=== PATIENT | male | born 1925 | race Caucasian/White ===

== ENCOUNTER 2016-06-24 11:04 | Inpatient (IN) | payer MEDICARE ==
[~2016-06-24] VITALS: Ht 172.7 cm; Wt 74.2 kg
[~2016-06-24 11:04] MED LIST: ALLO100 PO; ASPI-110 PO; CARV6.25 PO; COQ1100C; FOSA70TA PO; FURO1TAB62 PO; GABA300C5 PO; HYDR-3516 PO; JALYCAP PO; PROT40TA PO; VITA500030 CHEW; ZYVO600T PO
--- NOTE | 2016-06-24 11:22 | PD ---
HPI Chief Complaint: chest pain Time Seen by Provider: 11:22 Travel History International Travel<30 days: No Contact w/Intl Traveler<30days: No Traveled to known affect area: No History of Present Illness HPI 89-year-old male with history of aortic valve replacement, CHF, and non- sustained V-tach, presents to the emergency department for evaluation. Patient states that he is having back pain and is contributing it to a fall that happened yesterday. His states yesterday he did have a fall which she believes was a trip and fall. It was unwitnessed, however, the pt states his cane "got tripped up and he went down." He did not strike his head or lose consciousness. He was "fine" and went about his day. Today he woke up and was complaining of back pain. He states that the pain radiates to his chest. states he was having some shortness of breath earlier this week. He denies any shortness of breath at this time. She states he has been having worsening weakness over the last week. His backpackers manager is Dr. Calloway who he saw earlier this week. His primary care provider is Dr. Dickens. Patient has no other symptoms to report. Note patient is hard of hearing. He is unable to wear his hearing aid in his left ear tear to a fungal infection currently being treated. PFSH Past Medical History Heart Rhythm Problems: Yes Cancer: Yes (ESOPHAGUS CA) Cardiovascular Problems: Yes Diminished Hearing: Yes (bilateral hearing aids) Gastrointestinal Disorders: Yes Gout: Yes Genitourinary: Yes Hypertension: Yes Musculoskeletal: No Neurologic: No Reproductive: No Respiratory: Yes Past Surgical History Abdominal Surgery: Yes (ESPHAGUS-STOMACH SURGERY ) Appendectomy: Yes Cardiac Surgery: Yes (atrial valvue surgery.) Cholecystectomy: Yes Tonsillectomy: Yes Other Surgery: Yes Social History Alcohol Use: Yes (OCC) Tobacco Use: No Substance Use: No Allergies-Medications (Allergen,Severity, Reaction): Coded Allergies: *MDRO Multi-Drug Resistant Organism (Verified Adverse Reaction, Unknown, 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/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) Reported Meds & Prescriptions Reported Meds & Active Scripts Active Reported Zyloprim (Allopurinol) 100 Mg Tab 100 Mg PO DAILY Protonix (Pantoprazole Sodium) 40 Mg Tab 40 Mg PO DAILY Lasix (Furosemide) 20 Mg Tab 20 Mg PO DAILY Gabapentin 300 Mg Cap 300 Mg PO DAILY Fosamax (Alendronate Sodium) 70 Mg Tab 70 Mg PO Q7D Coq10 (Coenzyme Q10 (Ubidecarenone)) 100 Mg Cap Aspirin 81 (Aspirin) 81 Mg Tabdr 81 Mg PO DAILY Mamie (Dutasteride-Tamsulosin) 0.5-0.4 Mg Cap 1 Cap PO DAILY Vitamin D3 (Cholecalciferol) 5,000 Unit Chew 5,000 Units CHEW DAILY Review of Systems Except as stated in HPI: all other systems reviewed are Neg Physical Exam Narrative GENERAL: Well-nourished male patient, lying in bed, in no acute distress. Patient is hard of hearing. SKIN: Focused skin assessment warm/dry. Slightly flushed cheeks. HEAD: Atraumatic. Normocephalic. EYES: Pupils equal and round. No scleral icterus. No injection or drainage. ENT: No nasal bleeding or discharge. Mucous membranes pink and moist. NECK: Trachea midline. No JVD. CARDIOVASCULAR: Irregular rate and irregular rhythm. RESPIRATORY: No accessory muscle use. Faint inspiratory wheeze to auscultation. Diminished bases. Breath sounds equal bilaterally. GASTROINTESTINAL: Abdomen soft, non-tender, nondistended. Hepatic and splenic margins not palpable. MUSCULOSKELETAL: No obvious deformities. No clubbing. No cyanosis. 2+ lower extremity edema, slightly greater on the right than the left. Distal pulses are palpable. Cap refill within normal limits. NEUROLOGICAL: Awake and alert. No obvious cranial nerve deficits. Motor grossly within normal limits. Normal speech. Data Data Last Documented VS Vital Signs Date Time Temp Pulse Resp B/P Pulse Ox O2 Delivery O2 Flow Rate FiO2 06/24/16 11:52 18 100 Nasal Cannula 2 06/24/16 11:47 97.9 90 115/64 Orders Electrocardiogram (06/24/16 11:20) Basic Metabolic Panel (Bmp) (06/24/16 11:20) B-Type Natriuretic Peptide (06/24/16 11:20) Ckmb (Isoenzyme) Profile (06/24/16 11:20) Complete Blood Count With Diff (06/24/16 11:20) Magnesium (Mg) (06/24/16 11:20) Prothrombin Time / Inr (Pt) (06/24/16 11:20) Act Partial Throm Time (Ptt) (06/24/16 11:20) Troponin I (06/24/16 11:20) Chest, Single Ap (06/24/16 11:20) Ecg Monitoring (06/24/16 11:20) Bilateral Bp Monitoring (06/24/16 11:20) Iv Access Insert/Monitor (06/24/16 11:20) Oximetry (06/24/16 11:20) Oxygen Administration (06/24/16 11:20) Aspirin Chew (Aspirin Chew) (06/24/16 11:30) Sodium Chloride 0.9% Flush (Ns Flush) (06/24/16 11:30) Furosemide Inj (Lasix Inj) (06/24/16 12:30) Labs Laboratory Tests Test 06/24/16 06/24/16 11:30 11:31 Sodium Level 142 MEQ/L Potassium Level 4.0 MEQ/L Chloride Level 106 MEQ/L Carbon Dioxide Level 27.3 MEQ/L Anion Gap 9 MEQ/L Blood Urea Nitrogen 47 MG/DL Creatinine 2.05 MG/DL Estimat Glomerular Filtration 31 ML/MIN Rate Random Glucose 117 MG/DL Calcium Level 9.7 MG/DL Magnesium Level 2.2 MG/DL Total Creatine Kinase 79 U/L Troponin I 0.06 NG/ML White Blood Count 8.6 TH/MM3 Red Blood Count 3.78 MIL/MM3 Hemoglobin 11.0 GM/DL Hematocrit 34.6 % Mean Corpuscular Volume 91.7 FL Mean Corpuscular Hemoglobin 29.2 PG Mean Corpuscular Hemoglobin 31.8 % Concent Red Cell Distribution Width 15.8 % Platelet Count 159 TH/MM3 Mean Platelet Volume 10.7 FL Neutrophils (%) (Auto) 72.6 % Lymphocytes (%) (Auto) 11.7 % Monocytes (%) (Auto) 11.2 % Eosinophils (%) (Auto) 3.5 % Basophils (%) (Auto) 1.0 % Neutrophils # (Auto) 6.2 TH/MM3 Lymphocytes # (Auto) 1.0 TH/MM3 Monocytes # (Auto) 1.0 TH/MM3 Eosinophils # (Auto) 0.3 TH/MM3 Basophils # (Auto) 0.1 TH/MM3 CBC Comment DIFF FINAL Differential Comment Prothrombin Time 12.6 SEC Prothromb Time International 1.1 RATIO Ratio Activated Partial 29.4 SEC Thromboplast Time B-Type Natriuretic Peptide 1186 PG/ML MDM Medical Decision Making Medical Screen Exam Complete: Yes Emergency Medical Condition: Yes Medical Record Reviewed: Yes Differential Diagnosis ACS versus dysrhythmia versus exacerbation of CHF versus electrolyte abnormality versus dehydration Narrative Course 89-year-old male presents to the emergency department for evaluation. Patient started having back pain that radiate to his chest this morning but states that this is secondary to a fall. Based on patient's symptoms, rhythm, and EKG findings this is more concerning for cardiac etiology. Pain is not reproducible upon palpation or movement. EKG is reviewed by my attending physician who also discussed it with Dr. Calloway the patient's backpackers manager and then Dr. Mcgowan, cardiology on-call. CBC is without acute concern. BMP is with creatinine 2.05 the BUN of 47. GFR is 31. This is worsening from recent lab work. Troponin is elevated at 0.06. BNP is 1186. I discussed the patient with my attending physician who also reviewed the lab findings and assess the patient. Patient will be given 20 mg IV Lasix. A call has been placed to [facility] for admission. Diagnosis Primary Impression: NSVT (nonsustained ventricular tachycardia) Additional Impressions: CHF (congestive heart failure) Qualified Code: I50.9 - Acute on chronic congestive heart failure, unspecified congestive heart failure type Elevated troponin Renal insufficiency Admitting Information Admitting Physician Requests: Admit Condition: Stable Lary Scherer Jun 24, 2016 11:22
[2016-06-24] MEDS ORDERED: ASPIRIN 81 MG CHEW TAB PO ONE (11:30)
[2016-06-24 11:36] VITALS: BP 115/64; PULSE 85; RESP 20; O2SAT 100
[2016-06-24 11:45] VITALS: BP 129/71; PULSE 117; RESP 20; O2SAT 100
[2016-06-24 11:45] LABS: AUTOMATED NEUTROPHIL # 6.2 TH/MM3 (1.8-7.7); BASOPHIL # 0.1 TH/MM3 (0-0.2); EOSINOPHIL # 0.3 TH/MM3 (0-0.4); EOSINOPHIL % 3.5 % (0.0-4.0); HEMATOCRIT 34.6 % (39.0-51.0); HEMO FLAGS DIFF FINAL; LYMPH % 11.7 % (9.0-44.0); MEAN CELL VOLUME 91.7 FL (80.0-100.0); MEAN CORPUSCULAR HEMOGLOBIN 29.2 PG (27.0-34.0); MEAN CORPUSCULAR HGB CONC 31.8 % (32.0-36.0); MONO % 11.2 % (0.0-8.0); NEUT % 72.6 % (16.0-70.0); PLATELET COUNT 159 TH/MM3 (150-450); RED BLOOD COUNT 3.78 MIL/MM3 (4.50-5.90); RED CELL DISTRIBUTION WIDTH 15.8 % (11.6-17.2); WHITE BLOOD COUNT 8.6 TH/MM3 (4.0-11.0)
[2016-06-24 11:47] VITALS: BP 115/64; PULSE 90; RESP 20; TEMP 97.9; O2SAT 86
[2016-06-24 11:52] LABS: APTT (PATIENT) 29.4 SEC (24.3-30.1); INTERNATIONAL NORMALIZED RATIO 1.1 RATIO; PROTHROMBIN TIME - PATIENT 12.6 SEC (9.8-11.6)
--- NOTE | 2016-06-24 11:53 | RADRPT ---
EXAM DATE/TIME: 06/24/2016 11:29 [facility] COMPARISON: CHEST SINGLE AP, July 16, 2015, 2:05. CHEST SINGLE AP, December 20, 2015, 8:51. WRIST LEFT LIMITE D (AP & LAT), January 26, 2016, 13:19. INDICATIONS : Back and chest pain, fell yesterday. MEDICAL HISTORY : Congestive heart failure. low blood pressure SURGICAL HISTORY : heart valve surgery a year ago. ENCOUNTER: Initial ACUITY: 1 day PAIN SCORE: 9/10 LOCATION: Bilateral chest FINDINGS: The heart is enlarged. The patient is post TAVR this appears stable in position. There is diffuse interstitial prominence. There is diffuse pleural calcification. Changes are similar to previous dated 12/20/15. The visualized bony structures are intact the CONCLUSION: 1. Diffuse interstitial prominence and pleural calcification unchanged from prior. When compared back to previous dated 07/16/15 diffuse interstitial prominence is new. Study would suggest some degree of congestive failure. Gabriel Ray MD on June 24, 2016 at 11:50 Board Certified Radiologist. This report was verified electronically.
[2016-06-24] MEDS ORDERED: DOXY100C PO (12:01)
--- NOTE | 2016-06-24 12:09 | PD ---
Physical Exam Date Seen by Provider: Jun 24, 2016 Time Seen by Provider: 11:36 Narrative I am seeing this patient with Lary Scherer DNP. Since with complaints of left upper back pain with radiation to his left chest. The patient does report that he had a mechanical fall yesterday following to his back. At that time he had no pain. Today he was weak and complaining of the above pain. He denies any nausea, vomiting. He denies any diaphoresis. Patient does have an extensive cardiac history. He reportedly was seen by his emergency medical services coordinator 1 week ago. The patient does have a history of nonsustained V. tach. He was noted here to have low blood pressure. Data Data Last Documented VS Vital Signs Date Time Temp Pulse Resp B/P Pulse Ox O2 Delivery O2 Flow Rate FiO2 06/24/16 11:52 18 100 Nasal Cannula 2 06/24/16 11:47 97.9 90 115/64 Orders Electrocardiogram (06/24/16 11:20) Basic Metabolic Panel (Bmp) (06/24/16 11:20) B-Type Natriuretic Peptide (06/24/16 11:20) Ckmb (Isoenzyme) Profile (06/24/16 11:20) Complete Blood Count With Diff (06/24/16 11:20) Magnesium (Mg) (06/24/16 11:20) Prothrombin Time / Inr (Pt) (06/24/16 11:20) Act Partial Throm Time (Ptt) (06/24/16 11:20) Troponin I (06/24/16 11:20) Chest, Single Ap (06/24/16 11:20) Ecg Monitoring (06/24/16 11:20) Bilateral Bp Monitoring (06/24/16 11:20) Iv Access Insert/Monitor (06/24/16 11:20) Oximetry (06/24/16 11:20) Oxygen Administration (06/24/16 11:20) Aspirin Chew (Aspirin Chew) (06/24/16 11:30) Sodium Chloride 0.9% Flush (Ns Flush) (06/24/16 11:30) Furosemide Inj (Lasix Inj) (06/24/16 12:30) Admit Order (Ed Use Only) (06/24/16 13:04) Consult Cardiology (06/24/16 ) Lorazepam Inj (Ativan Inj) (06/24/16 13:15) Labs Laboratory Tests Test 06/24/16 06/24/16 11:30 11:31 Sodium Level 142 MEQ/L Potassium Level 4.0 MEQ/L Chloride Level 106 MEQ/L Carbon Dioxide Level 27.3 MEQ/L Anion Gap 9 MEQ/L Blood Urea Nitrogen 47 MG/DL Creatinine 2.05 MG/DL Estimat Glomerular Filtration 31 ML/MIN Rate Random Glucose 117 MG/DL Calcium Level 9.7 MG/DL Magnesium Level 2.2 MG/DL Total Creatine Kinase 79 U/L Troponin I 0.06 NG/ML White Blood Count 8.6 TH/MM3 Red Blood Count 3.78 MIL/MM3 Hemoglobin 11.0 GM/DL Hematocrit 34.6 % Mean Corpuscular Volume 91.7 FL Mean Corpuscular Hemoglobin 29.2 PG Mean Corpuscular Hemoglobin 31.8 % Concent Red Cell Distribution Width 15.8 % Platelet Count 159 TH/MM3 Mean Platelet Volume 10.7 FL Neutrophils (%) (Auto) 72.6 % Lymphocytes (%) (Auto) 11.7 % Monocytes (%) (Auto) 11.2 % Eosinophils (%) (Auto) 3.5 % Basophils (%) (Auto) 1.0 % Neutrophils # (Auto) 6.2 TH/MM3 Lymphocytes # (Auto) 1.0 TH/MM3 Monocytes # (Auto) 1.0 TH/MM3 Eosinophils # (Auto) 0.3 TH/MM3 Basophils # (Auto) 0.1 TH/MM3 CBC Comment DIFF FINAL Differential Comment Prothrombin Time 12.6 SEC Prothromb Time International 1.1 RATIO Ratio Activated Partial 29.4 SEC Thromboplast Time B-Type Natriuretic Peptide 1186 PG/ML [facility] Medical Record Reviewed: Yes Supervised Visit with RHEA: Yes Differential Diagnosis ACS versus nonsustained V. tach with prolonged positive's versus sick sinus syndrome Diagnosis Primary Impression: Chest pain Additional Impressions: CHF (congestive heart failure) Qualified Code: I50.9 - Acute on chronic congestive heart failure, unspecified congestive heart failure type NSVT (nonsustained ventricular tachycardia) [id number] kidney injury Elevated troponin Admitting Information Admitting Physician Requests: Admit Lokesh Francis MD Jun 24, 2016 12:09
[2016-06-24 12:21] LABS: BICARBONATE 27.3 MEQ/L (21.0-32.0); MAGNESIUM 2.2 MG/DL (1.5-2.5)
[2016-06-24] MEDS ORDERED: FUROSEMIDE 20 MG/2 ML VIAL IV PUSH ONE ×2 (12:30→16:00)
[2016-06-24] MEDS: SODIUM CHLORIDE 0.9% FLUSH 10 ML FLUSH IVF PRN ×2 (12:44→13:23)
[2016-06-24] MEDS ORDERED: LORazepam 2 MG/ML VIAL IV PUSH ONE (13:15)
[2016-06-24] MEDS ORDERED: FUROSEMIDE 40 MG/4 ML VIAL IV PUSH ONE (13:30)
[2016-06-24] MEDS ORDERED: ONDANSETRON HCL 4 MG/2 ML VIAL IVP PRN (14:45)
[2016-06-24] MEDS ORDERED: METOCLOPRAMIDE HCL 10 MG/2 ML VIAL IV PUSH PRN (14:45)
[2016-06-24] MEDS ORDERED: SODIUM CHLORIDE 0.9% FLUSH 10 ML FLUSH IV FLUSH PRN (14:45)
[2016-06-24] MEDS ORDERED: NALOXONE HCL 0.4 MG/ML AMP IV PRN (14:45)
[2016-06-24] MEDS ORDERED: ALENDRONATE SODIUM 70 MG TAB PO SCH (15:00)
[2016-06-24 15:28] VITALS: BP 138/84; PULSE 81; RESP 14; O2SAT 98
[2016-06-24] MEDS: HEPARIN SODIUM - SQ 10,000 UNITS/ML VIAL SQ SCH (16:00)
--- NOTE | 2016-06-24 16:44 | MB ---
cc: EVANS CALLOWAY M.D., [place] DATE OF CONSULTATION: 06/24/2016 DATE OF : 1925 REASON FOR THE CONSULTATION Pauses on monitoring, frequent nonsustained wide complex tachycardia, chest pain. HISTORY OF PRESENT ILLNESS The patient is an 89-year-old white male, followed in our office by Dr. Evans Calloway, with a history of aortic stenosis status post transcatheter aortic valve replacement last year, asbestosis, coronary artery disease, esophageal cancer who presented to the hospital after a fall. The patient states he felt quite well before the fall but afterwards experienced midback and right greater than left-sided chest pain. The patient states he fell backwards after simply losing his balance. He never lost consciousness. He denies angina, palpitations, pedal edema, paroxysmal nocturnal dyspnea. Rarely and very briefly he experiences mild lightheadedness. On monitoring here in the emergency department he has had a number of pauses, mostly approximately 2 seconds in duration although there are infrequent episodes of pauses up to 4 seconds in duration, some of which have been immediately post wide complex tachycardia. The patient states he was tried on metoprolol in the past but did not tolerate it due to bradycardia and relatively low blood pressures. PAST MEDICAL HISTORY 1. Aortic stenosis status post transcatheter aortic valve replacement at [facility] June, using a 29 mm LAMONT 3 valve. 2. Asbestosis. 3. Coronary artery disease with cardiac catheterization in April of 2015 showing 25% left main and 60% proximal LAD disease. 4. Chronic renal insufficiency stage III. 5. Remote history of esophageal cancer status post resection. 6. Hypertension. 7. History of wide complex tachycardia, possibly ventricular tachycardia, cannot rule out supraventricular tachycardia with aberrancy. MEDICATIONS His cardiac medications at home - 1. Aspirin 81 mg q.d. 2. Furosemide 20 mg q.d. ALLERGIES NO KNOWN DRUG ALLERGIES. FAMILY HISTORY Noncontributory. SOCIAL HISTORY The patient quit smoking 25 years ago. He denies alcohol abuse. REVIEW OF SYSTEMS As in the History of Present Illness otherwise negative or noncontributory. He also denies headache, abdominal pain, melena, dyspepsia, bright red blood per rectum. PHYSICAL EXAMINATION VITAL SIGNS: He had a blood pressure of 115/64 with a pulse of 90, respirations 18. GENERAL: In general he is a well-developed, well-nourished white male in no acute distress. HEENT: Jugular venous pressure is normal. Carotid pulses are 2+ bilaterally and without bruits. CHEST: Examination of the chest reveals clear lung cote. CARDIAC: On cardiac examination he has an irregular irregular rhythm with a grade 1/6 systolic ejection murmur heard at the base. No gallop is audible. ABDOMEN: On abdominal examination he has a soft, nontender abdomen. Bowel sounds are present. There is no definite hepatosplenomegaly. EXTREMITIES: Examination of extremities reveals no clubbing, cyanosis or edema. LABORATORY DATA Laboratory data includes potassium of 4.0, BUN 47, creatinine 2.05, troponin 0.06, INR 1.1, WBC 8.6, hemoglobin 11.0, platelets 159. IMAGING Chest x-ray shows diffuse interstitial prominence. EKG is pending. IMPRESSION Atypical chest pain, frequent salvos of wide complex tachycardia, frequent relatively short pauses in this 89-year-old white male with a history of transcatheter aortic valve replacement, coronary artery disease, chronic renal insufficiency, esophageal cancer, hypertension, asbestosis. Overall I doubt the chest pains are due to myocardial ischemia. The patient experienced the chest pain immediately after his fall. EKG is pending. The troponin level is only slightly abnormal, this in a setting of renal insufficiency. His initial CK is negative for myocardial infarction. His numerous rhythm strips have been reviewed. Indeed he has frequent salvos of wide complex tachycardia, some of which is suggestive of aberrantly conducted atrial tachycardia. It is difficult to exclude that these salvos are nonsustained ventricular tachycardia. In addition, after most of these salvos he has pauses probably as long as 3.5 seconds in duration. The patient has underlying bradycardia. He also notes he was tried on metoprolol in the recent past but it had to be discontinued due to bradycardia and low blood pressures. RECOMMENDATIONS 1. I do overall recommend permanent pacemaker implantation mainly to facilitate use of medical therapy for his nonsustained tachy arrhythmias. At this time he wants to see if one of our [facility] cardiothoracic surgeons will do the pacemaker. 2. Consider mild diuresis; his chest x-ray is suggestive of congestive heart failure. DevynMD DANE Barreto/ANTONY /1:17 PM /4:10 PM [place]
[2016-06-24 16:59] VITALS: BP 97/71; PULSE 74; RESP 12; O2SAT 96
[2016-06-24 17:52] LABS: BACTERIA, URINE RARE /hpf; BLOOD, URINE NEG (NEG); COMMENT (UR) CULT NOT INDICATED; CULTURE IF INDICATED CULT NOT INDICATED; GLUCOSE,URINE NEG (NEG); KETONE, URINE NEG (NEG); NITRITE,URINE NEG (NEG); SQUAMOUS EPITHELIAL CELL URINE <1 /hpf (0-5); URINE COLOR LIGHT-YELLOW (YELLW/STRAW)
--- NOTE | 2016-06-24 18:08 | HHI.PR ---
Objective Objective Results - Vital Signs Date Time Temp Pulse Resp B/P Pulse Ox O2 Delivery O2 Flow Rate FiO2 06/24/16 16:59 74 12 97/71 96 Nasal Cannula 3 06/24/16 15:28 81 14 138/84 98 Nasal Cannula 2 06/24/16 11:52 18 100 Nasal Cannula 2 06/24/16 11:47 97.9 90 20 115/64 86 06/24/16 11:45 117 20 129/71 100 Nasal Cannula 2 06/24/16 11:45 100 Nasal Cannula 2 06/24/16 11:36 85 20 115/64 100 Nasal Cannula 2 06/24/16 11:36 100 Nasal Cannula 2 Result Diagram: 06/24/16 1131 06/24/16 1130 Other Results Laboratory Tests Test 06/24/16 06/24/16 06/24/16 11:30 11:31 17:15 Sodium Level 142 Potassium Level 4.0 Chloride Level 106 Carbon Dioxide Level 27.3 Anion Gap 9 Blood Urea Nitrogen 47 Creatinine 2.05 Estimat Glomerular Filtration 31 Rate Random Glucose 117 Calcium Level 9.7 Magnesium Level 2.2 Total Creatine Kinase 79 Troponin I 0.06 White Blood Count 8.6 Red Blood Count 3.78 Hemoglobin 11.0 Hematocrit 34.6 Mean Corpuscular Volume 91.7 Mean Corpuscular Hemoglobin 29.2 Mean Corpuscular Hemoglobin 31.8 Concent Red Cell Distribution Width 15.8 Platelet Count 159 Mean Platelet Volume 10.7 Neutrophils (%) (Auto) 72.6 Lymphocytes (%) (Auto) 11.7 Monocytes (%) (Auto) 11.2 Eosinophils (%) (Auto) 3.5 Basophils (%) (Auto) 1.0 Neutrophils # (Auto) 6.2 Lymphocytes # (Auto) 1.0 Monocytes # (Auto) 1.0 Eosinophils # (Auto) 0.3 Basophils # (Auto) 0.1 CBC Comment DIFF FINAL Differential Comment Prothrombin Time 12.6 Prothromb Time International 1.1 Ratio Activated Partial 29.4 Thromboplast Time B-Type Natriuretic Peptide 1186 Urine Color LIGHT-YELLOW Urine Turbidity CLEAR Urine pH 5.0 Urine Specific Warren 1.007 Urine Protein NEG Urine Glucose (UA) NEG Urine Ketones NEG Urine Occult Blood NEG Urine Nitrite NEG Urine Bilirubin NEG Urine Urobilinogen LESS THAN 2.0 Urine Leukocyte Esterase SMALL Urine RBC LESS THAN 1 Urine WBC 5 Urine Squamous Epithelial <1 Cells Urine Bacteria RARE Microscopic Urinalysis Comment CULT NOT INDICATED A/P Assessment and Plan PT SEEN AND EXAMINED WITH AT BEDSIDE FACE TO FACE TO TIME SPENT WITH PT CHART WAS REVIEWED INCLUDING LABS MEDS AND RAD DATA PLAN OF CARE WAS DOROTHY MADSEN IN DETAIL ABOVE [facility] CARDIOLOGY INPUT DW PT'S H/P ALEM FOLLOWED BY Tara Sandoval MD Jun 24, 2016 18:07
--- NOTE | 2016-06-24 18:25 | MH ---
cc: RADHAKENYUE DATE OF ADMISSION: 06/24/2016 DATE OF : 1925 CHIEF COMPLAINT Fall, back pain radiating into his chest. HISTORY OF PRESENT ILLNESS This is a pleasant 89-year-old white male who had been in his usual state of health over the past week. The patient has noted to his on several occasions that he has been having some shortness of breath which would wax and wane. The patient saw his homeopathic doctor, Dr. Calloway, earlier this week and was evaluated earlier this week. The patient also was evaluated in an urgent care type situation a couple of days ago for cough and possibly an upper respiratory infection; he was placed on doxycycline and returned home. Yesterday while walking through the living room the patient lost his balance and fell to the floor. This was an unwitnessed event. The patient did not lose consciousness and denies hitting his head. His assisted him in helping him up and the patient denied any other symptoms the rest of the evening. Today the patient woke up complaining of some left-sided back pain. He states the pain radiated around to his chest. He also was having increased symptoms of shortness of breath. The patient's talked him into coming to the hospital to be evaluated. The patient currently is hard of hearing, he wears bilateral hearing aids. He is being treated for a left ear fungal infection. He has one hearing aid currently in his right ear and according to his cannot hear anything unless he has these hearing aids in. The patient currently is resting in the bed, eyes closed. He is very calm and subdued secondary to some anxiety medicines he has received in the ER according to the . She is the chief history science analyst, all of the information is being obtained from her and the record. The patient also has complained of some generalized weakness in his legs since this past Wednesday which is six days ago. According to the , the patient has not had any midsternal chest pain, he has had no headache, he has had no nausea, no vomiting, no diarrhea, no constipation, and no fever. According to the record, the patient was in the emergency room for evaluation and nonsustained V-tach was noted on the monitor. During that period of time, the patient was extremely anxious and received medication which includes IV Lasix, Ativan IV. He also in the ER received a chewable Aspirin, Fosamax. PAST MEDICAL HISTORY 1. Cardiovascular disease. 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 3. Hard of hearing. 4. Bilateral hearing aids. 5. GERD. 6. Gout. 7. Previous urinary problems. 8. Hypertension. 9. Recent diagnosis of possible upper respiratory infection. PAST SURGICAL HISTORY 1. Esophagus stomach surgery. 2. Appendectomy. 3. Atrial aortic valve replacement. 4. Cholecystectomy. 5. Tonsillectomy. ALLERGIES MDRO MULTI-RESISTANT DRUG ORGANISM. REPORTED MEDICATIONS 1. Allopurinol. 2. Protonix. 3. Lasix. 4. Gabapentin. 5. Flomax. 6. CO-Q10. 7. Aspirin. 8. Mamie. 9. Vitamin D3. SOCIAL HISTORY He is currently for 38 years to this . No tobacco. No illicit drugs. A rare occasional social alcohol drink. REVIEW OF SYSTEMS A 12-point review was attempted but received limited information from the patient as stated, information has been given per the . PHYSICAL EXAMINATION VITAL SIGNS: Temperature is 97.9, pulse is labile between 81-117, during palpation of his pulse it was noted to be lower, respiratory rate 14-20, blood pressure 115/64 and 138/84 between his ER checks, O2 sat 98 nasal canula at 2 liters. GENERAL: This is a pale, well-nourished white male, looks younger than his stated age resting in the bed, eyes are closed. He does respond to verbal stimuli but very short answers. HEENT: Atraumatic, normocephalic. PERRLA. Mucous membranes are slightly dry, pale. NECK: Neck is supple. HEART: Heart sounds S1, S2. Systolic murmur heard left sternal border. Possible S3 gallop. Has trace to 1+ edema in his lower extremities bilateral. RESPIRATORY: Lung sounds are equal. He does have some faint expiratory wheezes noted anteriorly. Diminished breath sounds bilateral in his bases mid to lower lobes. GASTROINTESTINAL: Abdomen is soft, nontender, nondistended. Active bowel sounds. MUSCULOSKELETAL: A mild amount of trace edema. No clubbing, no cyanosis. NEUROLOGIC: He is drowsy but he does respond to verbal stimuli. Speech is soft but normal. SKIN: Skin is pale, warm and dry. Thin turgor. DIAGNOSTIC DATA WBC count 8.6, RBC 3.78, hemoglobin 11, hematocrit 34.6, platelet count 159, MCHC 31.8, neutrophil auto percentage 72.6, lymphocyte auto percentage 11.7, monocyte auto percentage 11.2. PT/INR 1.1. Chemistry: Sodium 142, potassium 4, chloride 106, carbon dioxide 27.3, anion gap 9, BUN 47, creatinine 2.05, GFR 31, random glucose 117, calcium 9.7, mag 2.2. Troponin 0.06, BNP 1186. IMAGING STUDIES Chest x-ray: Diffuse interstitial prominence and pleural calcifications, unchanged from prior films. His diffuse interstitial edema is new which would suggest some degree of congestive heart failure. ASSESSMENT 1. Congestive heart failure with complications of dyspnea at rest. 2. Acute kidney injury with chronic kidney disease. 3. Dysrhythmias with irregular rhythm. 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 6. Elevated troponin, rule out MA/cardiac event. 7. Recent upper respiratory infection. 8. Anxiety. 9. Hypertension. 10. Anemia. PLAN Admit inpatient status. In the emergency room the patient had his labs monitored, chest x-ray done, oxygen was started, he had an Aspirin to chew, IV Lasix. Cardiology was consulted for their expert opinion. He was initially n.p.o. when coming into the emergency room, he has now been advanced to a heart healthy diet. He will be on continuous cardiac monitoring. Vital signs will be every 4 hours as warranted. Medications have been reconciled. Our plan and hopes are for active diuresis from the IV Lasix. The patient has been seen per Dr. Marquez for the pauses on the monitor and includes the wide complex tachycardia. The patient does have a significant history of aortic stenosis status post his aortic valve replacement surgery. The plan is to do a pacemaker insertion tomorrow approximately 3 p.m. according to the and the text that she has received from Dr. Marquez. We want to continue his active diuresis. His course of treatment will depend on his response to the treatment. Currently the patient is FULL CODE/FULL AGGRESSIVE CARE. states he has a Living Will and she is going to bring a copy in to the hospital, but I do not think at this time any code status changes will be needed. DICTATED BY: Janet Rascon NP Yue Osman MD JP/BJF /4:51 PM /5:17 PM PT SEEN AND EXAMINED IN DAY OF ADMISSION ABOVE CHART WAS REVIEWED PLAN OF CARE WAS DOROTHY PANCHALD
[2016-06-24 19:29] VITALS: O2SAT 96
[2016-06-24] MEDS ORDERED: LIDOCAINE HCL 2% 100 MG/5 ML SYRINGE IV PUSH ONE (20:00)
[2016-06-24] MEDS: LIDOCAINE/D5W INJ 500 ML IV SCH (20:12)
[2016-06-24] MEDS: SODIUM CHLORIDE 0.9% FLUSH 10 ML FLUSH IV FLUSH SCH (21:00)
[2016-06-24] MEDS: POVIDONE IODINE 5% (ANTISEPSIS KIT) 4 APPLICATIONS TOPICAL SCH (21:00)
[2016-06-24] MEDS: MUPIROCIN 2% OINT 1 APPLIC/GM SYR EACH NARE SCH (21:00)
[2016-06-24] MEDS: CHLORHEXIDINE GLUCONATE 2 % 1 PACK (2 CLOTHS) TOPICAL SCH (21:00)
[2016-06-25] VITALS (10 sets, daily range): BP systolic 113–165; BP diastolic 66–116; PULSE 68–89; RESP 15–26; TEMP 96.5–98.8; O2SAT 95–100
[2016-06-25] MEDS ORDERED: LORazepam 2 MG/ML VIAL ONE (02:29)
[2016-06-25] MEDS ORDERED: LORazepam 2 MG/ML VIAL IV ONE (02:30)
[2016-06-25] MEDS: HEPARIN SODIUM - SQ 10,000 UNITS/ML VIAL SQ SCH (04:00)
[2016-06-25 04:07] LABS: AUTOMATED NEUTROPHIL # 6.6 TH/MM3 (1.8-7.7); BASOPHIL # 0.1 TH/MM3 (0-0.2); EOSINOPHIL # 0.4 TH/MM3 (0-0.4); EOSINOPHIL % 4.5 % (0.0-4.0); HEMATOCRIT 35.3 % (39.0-51.0); HEMO FLAGS DIFF FINAL; LYMPH % 12.1 % (9.0-44.0); LYMPHOCYTE # 1.1 TH/MM3 (1.0-4.8); MEAN CELL VOLUME 90.3 FL (80.0-100.0); MEAN CORPUSCULAR HEMOGLOBIN 30.2 PG (27.0-34.0); MEAN CORPUSCULAR HGB CONC 33.5 % (32.0-36.0); MONO % 9.4 % (0.0-8.0); PLATELET COUNT 156 TH/MM3 (150-450); RED BLOOD COUNT 3.91 MIL/MM3 (4.50-5.90); RED CELL DISTRIBUTION WIDTH 16.2 % (11.6-17.2); WHITE BLOOD COUNT 9.1 TH/MM3 (4.0-11.0)
[2016-06-25 04:53] LABS: ALKALINE PHOSPHATASE 63 U/L (45-117); TOTAL BILIRUBIN ADULT 0.7 MG/DL (0.2-1.0)
[2016-06-25 05:05] LABS: ALT (GPT) 25 U/L (12-78); ANION GAP 9 MEQ/L (5-15); AST (GOT) 25 U/L (15-37); BICARBONATE 27.4 MEQ/L (21.0-32.0); BLOOD UREA NITROGEN 40 MG/DL (7-18); CHLORIDE 105 MEQ/L (98-107); GLOMERULAR FILTRATION RATE 37 ML/MIN (>89); SODIUM (NA) 141 MEQ/L (136-145)
[2016-06-25 05:06] LABS: POTASSIUM 3.8 MEQ/L (3.5-5.1)
--- NOTE | 2016-06-25 08:35 | PD.CARD.PN ---
Subjective Subjective Remarks Sedated. Responds to painful stimuli. Objective Medications Item Value Date Time Aspirin 81 mg 06/25/16899 (Ecotrin Ec) DAILY/PO Furosemide 20 mg 06/25/16899 (Lasix Inj) BID@09,18/IV PUSH Lidocaine HCl/ 500 ml @ 30 mls/hr 06/24/16 2000 Dextrose [id number]/IV 06/24/162011 Vital Signs / I&O Vital Signs Date Time Temp Pulse Resp B/P Pulse Ox O2 Delivery O2 Flow Rate FiO2 06/25/16 07:00 96 Nasal Cannula 2.00 06/25/16 04:00 98.8 82 26 159/93 95 06/25/16 00:00 98.7 75 20 147/83 96 06/24/16 19:29 96 Nasal Cannula 3.00 06/24/16 16:59 74 12 97/71 96 Nasal Cannula 3 06/24/16 15:28 81 14 138/84 98 Nasal Cannula 2 06/24/16 11:52 18 100 Nasal Cannula 2 06/24/16 11:47 97.9 90 20 115/64 86 06/24/16 11:45 117 20 129/71 100 Nasal Cannula 2 06/24/16 11:45 100 Nasal Cannula 2 06/24/16 11:36 85 20 115/64 100 Nasal Cannula 2 06/24/16 11:36 100 Nasal Cannula 2 I/O 06/24/16 06/24/16 06/24/16 06/25/16 06/25/16 06/25/16 07:00 15:00 23:00 07:00 15:00 23:00 Intake Total 281 ml Output Total 650 ml Balance -650 ml 281 ml Intake IV Total 281 ml Output Urine Total 650 ml # Voids 2 Physical Exam GENERAL: Well developed, well nourished. No acute distress. HEENT: Jugular venous pressure 9 cm water. CHEST: Coarse upper airway sounds. Few left basilar crackles. CARDIAC: Regular rate and rhythm without S3, S4. I/ ISAI RUSB. ABDOMEN: Soft, nontender, no hepatosplenomegaly. Bowel sounds present. EXTREMITIES: No clubbing, cyanosis, or edema. Laboratory Laboratory Tests Test 06/24/16 06/24/16 06/24/16 06/24/16 11:30 11:31 17:15 20:30 Sodium Level 142 MEQ/L Potassium Level 4.0 MEQ/L Chloride Level 106 MEQ/L Carbon Dioxide Level 27.3 MEQ/L Anion Gap 9 MEQ/L Blood Urea Nitrogen 47 MG/DL Creatinine 2.05 MG/DL Estimat Glomerular Filtration 31 ML/MIN Rate Random Glucose 117 MG/DL Calcium Level 9.7 MG/DL Magnesium Level 2.2 MG/DL Total Creatine Kinase 79 U/L Troponin I 0.06 NG/ML White Blood Count 8.6 TH/MM3 Red Blood Count 3.78 MIL/MM3 Hemoglobin 11.0 GM/DL Hematocrit 34.6 % Mean Corpuscular Volume 91.7 FL Mean Corpuscular Hemoglobin 29.2 PG Mean Corpuscular Hemoglobin 31.8 % Concent Red Cell Distribution Width 15.8 % Platelet Count 159 TH/MM3 Mean Platelet Volume 10.7 FL Neutrophils (%) (Auto) 72.6 % Lymphocytes (%) (Auto) 11.7 % Monocytes (%) (Auto) 11.2 % Eosinophils (%) (Auto) 3.5 % Basophils (%) (Auto) 1.0 % Neutrophils # (Auto) 6.2 TH/MM3 Lymphocytes # (Auto) 1.0 TH/MM3 Monocytes # (Auto) 1.0 TH/MM3 Eosinophils # (Auto) 0.3 TH/MM3 Basophils # (Auto) 0.1 TH/MM3 CBC Comment DIFF FINAL Differential Comment Prothrombin Time 12.6 SEC Prothromb Time International 1.1 RATIO Ratio Activated Partial 29.4 SEC Thromboplast Time B-Type Natriuretic Peptide 1186 PG/ML Urine Color LIGHT-YELLOW Urine Turbidity CLEAR Urine pH 5.0 Urine Specific [place] 1.007 Urine Protein NEG mg/dL Urine Glucose (UA) NEG mg/dL Urine Ketones NEG mg/dL Urine Occult Blood NEG Urine Nitrite NEG Urine Bilirubin NEG Urine Urobilinogen LESS THAN 2.0 MG/DL Urine Leukocyte Esterase SMALL Urine RBC LESS THAN 1 /hpf Urine WBC 5 /hpf Urine Squamous Epithelial <1 /hpf Cells Urine Bacteria RARE /hpf Microscopic Urinalysis Comment CULT NOT INDICATED Nasal Screen MRSA (PCR) POSITIVE Test 06/25/16 03:54 White Blood Count 9.1 TH/MM3 Red Blood Count 3.91 MIL/MM3 Hemoglobin 11.8 GM/DL Hematocrit 35.3 % Mean Corpuscular Volume 90.3 FL Mean Corpuscular Hemoglobin 30.2 PG Mean Corpuscular Hemoglobin 33.5 % Concent Red Cell Distribution Width 16.2 % Platelet Count 156 TH/MM3 Mean Platelet Volume 10.8 FL Neutrophils (%) (Auto) 73.0 % Lymphocytes (%) (Auto) 12.1 % Monocytes (%) (Auto) 9.4 % Eosinophils (%) (Auto) 4.5 % Basophils (%) (Auto) 1.0 % Neutrophils # (Auto) 6.6 TH/MM3 Lymphocytes # (Auto) 1.1 TH/MM3 Monocytes # (Auto) 0.9 TH/MM3 Eosinophils # (Auto) 0.4 TH/MM3 Basophils # (Auto) 0.1 TH/MM3 CBC Comment DIFF FINAL Differential Comment Sodium Level 141 MEQ/L Potassium Level 3.8 MEQ/L Chloride Level 105 MEQ/L Carbon Dioxide Level 27.4 MEQ/L Anion Gap 9 MEQ/L Blood Urea Nitrogen 40 MG/DL Creatinine 1.75 MG/DL Estimat Glomerular Filtration 37 ML/MIN Rate Random Glucose 116 MG/DL Calcium Level 9.8 MG/DL Total Bilirubin 0.7 MG/DL Aspartate Amino Transf 25 U/L (AST/SGOT) Alanine Aminotransferase 25 U/L (ALT/SGPT) Alkaline Phosphatase 63 U/L Total Protein 6.9 GM/DL Albumin 3.1 GM/DL Imaging Last 48 hours Impressions Chest X-Ray 06/24/16 1120 Signed Impressions: Service Date/Time: Friday, June 24, 2016 11:29 - CONCLUSION: 1. Diffuse interstitial prominence and pleural calcification unchanged from prior. When compared back to previous dated 07/16/15 diffuse interstitial prominence is new. Study would suggest some degree of congestive failure. Gabriel Ray MD Assessment and Plan Problem List: (1) Wide QRS ventricular tachycardia Assessment and Plan: Rhythm more stable overnight on IV lidocaine, less wide complex ectopy and salvoes. No further pauses. Rec Amiodarone once a pacemaker has been implanted. Continue lidocaine for now. (2) Congestive heart failure (CHF) Assessment and Plan: Somewhat worsening respiratory status. Yesterday's CXR suggestive of CHF. Reportedly his LV function at time of TAVR last year was normal. Rec increase Lasix, repeat CXR, check echo. (3) CAD (coronary artery disease) Assessment and Plan: Stable CAD status. No definite recent angina. Continue daily aspirin. Patient has refused lipid lowering therapy in the past. (4) Hypertension Assessment and Plan: Widely fluctuating BP's. Rec continue to monitor. Code Status full code Discussed Condition With nurse Problem Qualifiers (1) Congestive heart failure (CHF): (2) CAD (coronary artery disease): Qualified Code: I25.10 - Coronary artery disease involving [place] cross coronary artery of [place] cross heart without angina pectoris (3) Hypertension: Qualified Code: I10 - Essential hypertension Devyn Marquez MD Jun 25, 2016 08:35
[2016-06-25] MEDS ORDERED: PROPOFOL 1000 MG/100 ML INJ 100 ML ONE (08:37)
[2016-06-25] MEDS ORDERED: ROCURONIUM INJ 50 MG/5 ML VIAL ONE (08:37)
[2016-06-25] MEDS: PANTOPRAZOLE SOD 40 MG DELAYED RELEASE TAB PO SCH (09:00)
[2016-06-25] MEDS: ASPIRIN EC 81 MG TABEC PO SCH (09:00)
[2016-06-25] MEDS: TAMSULOSIN HCL 0.4 MG CAP PO SCH (09:00)
[2016-06-25] MEDS ORDERED: PROPOFOL 1000 MG/100 ML INJ 100 ML IV SCH (09:00)
[2016-06-25] MEDS ORDERED: DUTASTERIDE TAMSULOSIN PO SCH (09:00)
[2016-06-25] MEDS ORDERED: FUROSEMIDE 20 MG/2 ML VIAL IV PUSH SCH (09:00)
[2016-06-25] MEDS: FINASTERIDE 5 MG TAB PO SCH (09:00)
--- NOTE | 2016-06-25 09:22 | PD.CONS ---
[facility] Service Critical Care Medicine Consult Requested By Hospitalists Reason for Consult Respiratory Failure. Primary Care Physician Glen Dickens M.D. History of Present Illness Syncope and collapse from ventricular arrhythmia. Received ativan last night X 2. He is quite somnolent now and does not protect his airway. He will require intubation and mechanical ventilation. Review of Systems ROS Unobtainable. 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) Past Medical History Past Medical History Heart Rhythm Problems: Yes Cancer: Yes (ESOPHAGUS CA) Cardiovascular Problems: Yes Diminished Hearing: Yes (bilateral hearing aids) Gastrointestinal Disorders: Yes Gout: Yes Genitourinary: Yes Hypertension: Yes Musculoskeletal: No Neurologic: No Reproductive: No Respiratory: Yes Past Surgical History Abdominal Surgery: Yes (ESPHAGUS-STOMACH SURGERY ) Appendectomy: Yes Cardiac Surgery: Yes (atrial valvue surgery.) Cholecystectomy: Yes Tonsillectomy: Yes Other Surgery: Yes Social History Alcohol Use: Yes (OCC) Tobacco Use: No Substance Use: No Allergies-Medications Allergies-Medications (Allergen,Severity, Reaction): Coded Allergies: *MDRO Multi-Drug Resistant Organism (Verified Adverse Reaction, Unknown, 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/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) Reported Meds & Prescriptions Reported Meds & Active Scripts Active Reported Zyloprim (Allopurinol) 100 Mg Tab 100 Mg PO DAILY Protonix (Pantoprazole Sodium) 40 Mg Tab 40 Mg PO DAILY Lasix (Furosemide) 20 Mg Tab 20 Mg PO DAILY Gabapentin 300 Mg Cap 300 Mg PO DAILY Fosamax (Alendronate Sodium) 70 Mg Tab 70 Mg PO Q7D Coq10 (Coenzyme Q10 (Ubidecarenone)) 100 Mg Cap Aspirin 81 (Aspirin) 81 Mg Tabdr 81 Mg PO DAILY Mamie (Dutasteride-Tamsulosin) 0.5-0.4 Mg Cap 1 Cap PO DAILY Vitamin D3 (Cholecalciferol) 5,000 Unit Chew 5,000 Units CHEW DAILY Physical Exam Vital Signs Vital Signs Date Time Temp Pulse Resp B/P Pulse Ox O2 Delivery O2 Flow Rate FiO2 06/25/16 07:00 96 Nasal Cannula 2.00 06/25/16 04:00 98.8 82 26 159/93 95 06/25/16 00:00 98.7 75 20 147/83 96 06/24/16 19:29 96 Nasal Cannula 3.00 06/24/16 16:59 74 12 97/71 96 Nasal Cannula 3 06/24/16 15:28 81 14 138/84 98 Nasal Cannula 2 06/24/16 11:52 18 100 Nasal Cannula 2 06/24/16 11:47 97.9 90 20 115/64 86 06/24/16 11:45 117 20 129/71 100 Nasal Cannula 2 06/24/16 11:45 100 Nasal Cannula 2 06/24/16 11:36 85 20 115/64 100 Nasal Cannula 2 06/24/16 11:36 100 Nasal Cannula 2 Physical Exam P 82, BP 172/112, R 10 obstructed sounds., sats 93% on 2L O2. Head: Atraumatic. Dentures in place. Neck: Loud snoring and obstruction. Stiff. Lungs: Diffuse mobile secretions. Poor air movement. Heart: RRR, no JVD. Abdomen: Soft, benign. No guarding. Extremities: Well perfused. Neuro: Opens eyes, does not focus. Moves 4 limbs. Laboratory Laboratory Tests Test 06/24/16 06/24/16 06/24/16 06/24/16 11:30 11:31 17:15 20:30 Sodium Level 142 Potassium Level 4.0 Chloride Level 106 Carbon Dioxide Level 27.3 Anion Gap 9 Blood Urea Nitrogen 47 Creatinine 2.05 Estimat Glomerular Filtration 31 Rate Random Glucose 117 Calcium Level 9.7 Magnesium Level 2.2 Total Creatine Kinase 79 Troponin I 0.06 White Blood Count 8.6 Red Blood Count 3.78 Hemoglobin 11.0 Hematocrit 34.6 Mean Corpuscular Volume 91.7 Mean Corpuscular Hemoglobin 29.2 Mean Corpuscular Hemoglobin 31.8 Concent Red Cell Distribution Width 15.8 Platelet Count 159 Mean Platelet Volume 10.7 Neutrophils (%) (Auto) 72.6 Lymphocytes (%) (Auto) 11.7 Monocytes (%) (Auto) 11.2 Eosinophils (%) (Auto) 3.5 Basophils (%) (Auto) 1.0 Neutrophils # (Auto) 6.2 Lymphocytes # (Auto) 1.0 Monocytes # (Auto) 1.0 Eosinophils # (Auto) 0.3 Basophils # (Auto) 0.1 CBC Comment DIFF FINAL Differential Comment Prothrombin Time 12.6 Prothromb Time International 1.1 Ratio Activated Partial 29.4 Thromboplast Time B-Type Natriuretic Peptide 1186 Urine Color LIGHT-YELLOW Urine Turbidity CLEAR Urine pH 5.0 Urine Specific [place] 1.007 Urine Protein NEG Urine Glucose (UA) NEG Urine Ketones NEG Urine Occult Blood NEG Urine Nitrite NEG Urine Bilirubin NEG Urine Urobilinogen LESS THAN 2.0 Urine Leukocyte Esterase SMALL Urine RBC LESS THAN 1 Urine WBC 5 Urine Squamous Epithelial <1 Cells Urine Bacteria RARE Microscopic Urinalysis Comment CULT NOT INDICATED Nasal Screen MRSA (PCR) POSITIVE Test 06/25/16 03:54 White Blood Count 9.1 Red Blood Count 3.91 Hemoglobin 11.8 Hematocrit 35.3 Mean Corpuscular Volume 90.3 Mean Corpuscular Hemoglobin 30.2 Mean Corpuscular Hemoglobin 33.5 Concent Red Cell Distribution Width 16.2 Platelet Count 156 Mean Platelet Volume 10.8 Neutrophils (%) (Auto) 73.0 Lymphocytes (%) (Auto) 12.1 Monocytes (%) (Auto) 9.4 Eosinophils (%) (Auto) 4.5 Basophils (%) (Auto) 1.0 Neutrophils # (Auto) 6.6 Lymphocytes # (Auto) 1.1 Monocytes # (Auto) 0.9 Eosinophils # (Auto) 0.4 Basophils # (Auto) 0.1 CBC Comment DIFF FINAL Differential Comment Sodium Level 141 Potassium Level 3.8 Chloride Level 105 Carbon Dioxide Level 27.4 Anion Gap 9 Blood Urea Nitrogen 40 Creatinine 1.75 Estimat Glomerular Filtration 37 Rate Random Glucose 116 Calcium Level 9.8 Total Bilirubin 0.7 Aspartate Amino Transf 25 (AST/SGOT) Alanine Aminotransferase 25 (ALT/SGPT) Alkaline Phosphatase 63 Total Protein 6.9 Albumin 3.1 Result Diagram: 06/25/16 0354 06/25/16 0354 Assessment and Plan Assessment and Plan Assessment: 1. Respiratory Failure. 2. Encephalopathy, acute. 3. Ventricular Arrhythmia. 4. Syncope and collapse. Plan: 1. Intubation and mechanical ventilation, PRVC mode. 2. Proceed with electrical cardiac intervention today. 3. Light sedation with propofol. 4. Wean to extubate after procedure. 5. SCDs. 6. Protonix. Overall impression: I suspect this is acute encephalopathy from benzodiazipine sedation at an elderly age. He is largely obtunded, unable to protect his airway. I'd prefer not to reverse his sedation abruptly in view of the ventricular arrhythmias, but rather wait until after the procedure so we are not wrestling him during the procedure. Critical care 38 mins aside from procedure. Lokesh Farrell MD Jun 25, 2016 09:22
--- NOTE | 2016-06-25 09:24 | PD.PROCEDR ---
Procedure Note Procedure DX: Respiratory Failure (J96.00) OP: Orotracheal Intubation (89980) Procedure: Bag mask ventilation. Propofol 10 ml iv. Intubated with 8.0 tube. Position confirmed with CO2 detection, breath sounds, sats 100%. Lokesh Farrell MD Jun 25, 2016 09:24
--- NOTE | 2016-06-25 09:37 | RADRPT ---
EXAM DATE/TIME: 06/25/2016 09:13 [place] COMPARISON: CHEST SINGLE AP, June 24, 2016, 11:29. INDICATIONS : Evaluate ET tube position MEDICAL HISTORY : Congestive heart failure. low blood pressure SURGICAL HISTORY : heart valve surgery a year ago. ENCOUNTER: Subsequent ACUITY: 1 day PAIN SCORE: Non-responsive. LOCATION: chest FINDINGS: The patient is rotated towards the right. Interval placement of endotracheal tube; the tip is 4 cm a kenyatta the shwetha. Patchy infiltrates in both lungs and pleural calcifications stable from prior. The heart is upper limits normal size. Moderate tortuosity descending thoracic aorta. CONCLUSION: ET tube in good position. Barak Goldberg MD on June 25, 2016 at 9:35 Board Certified Radiologist. This report was verified electronically.
--- NOTE | 2016-06-25 09:41 | HHI.PR ---
Subjective Subjective Remarks agitated overnight, went into resp. failure, now intubated on Diprivan gtt Lidocaine gtt less ectopy unable to obtain ROS Review of Systems Constitutional Constitutional Remarks 12 point review of systems unable to obtain Vitals/Results Intake & Output 06/24/16 06/24/16 06/25/16 15:00 23:00 07:00 Intake Total 281 ml Output Total 650 ml Balance -650 ml 281 ml Intake IV Total 281 ml Output Urine Total 650 ml # Voids 2 Vital Signs Vital Signs Date Time Temp Pulse Resp B/P Pulse Ox O2 Delivery O2 Flow Rate FiO2 06/25/16 09:10 99 50 06/25/16 07:00 96 Nasal Cannula 2.00 06/25/16 04:00 98.8 82 26 159/93 95 06/25/16 00:00 98.7 75 20 147/83 96 06/24/16 19:29 96 Nasal Cannula 3.00 06/24/16 16:59 74 12 97/71 96 Nasal Cannula 3 06/24/16 15:28 81 14 138/84 98 Nasal Cannula 2 06/24/16 11:52 18 100 Nasal Cannula 2 06/24/16 11:47 97.9 90 20 115/64 86 06/24/16 11:45 117 20 129/71 100 Nasal Cannula 2 06/24/16 11:45 100 Nasal Cannula 2 06/24/16 11:36 85 20 115/64 100 Nasal Cannula 2 06/24/16 11:36 100 Nasal Cannula 2 CBC/BMP: 06/25/16 0354 06/25/16 0354 Lab Results Laboratory Tests Test 06/24/16 06/24/16 06/24/16 06/24/16 11:30 11:31 17:15 20:30 Sodium Level 142 MEQ/L Potassium Level 4.0 MEQ/L Chloride Level 106 MEQ/L Carbon Dioxide Level 27.3 MEQ/L Anion Gap 9 MEQ/L Blood Urea Nitrogen 47 MG/DL Creatinine 2.05 MG/DL Estimat Glomerular Filtration 31 ML/MIN Rate Random Glucose 117 MG/DL Calcium Level 9.7 MG/DL Magnesium Level 2.2 MG/DL Total Creatine Kinase 79 U/L Troponin I 0.06 NG/ML White Blood Count 8.6 TH/MM3 Red Blood Count 3.78 MIL/MM3 Hemoglobin 11.0 GM/DL Hematocrit 34.6 % Mean Corpuscular Volume 91.7 FL Mean Corpuscular Hemoglobin 29.2 PG Mean Corpuscular Hemoglobin 31.8 % Concent Red Cell Distribution Width 15.8 % Platelet Count 159 TH/MM3 Mean Platelet Volume 10.7 FL Neutrophils (%) (Auto) 72.6 % Lymphocytes (%) (Auto) 11.7 % Monocytes (%) (Auto) 11.2 % Eosinophils (%) (Auto) 3.5 % Basophils (%) (Auto) 1.0 % Neutrophils # (Auto) 6.2 TH/MM3 Lymphocytes # (Auto) 1.0 TH/MM3 Monocytes # (Auto) 1.0 TH/MM3 Eosinophils # (Auto) 0.3 TH/MM3 Basophils # (Auto) 0.1 TH/MM3 CBC Comment DIFF FINAL Differential Comment Prothrombin Time 12.6 SEC Prothromb Time International 1.1 RATIO Ratio Activated Partial 29.4 SEC Thromboplast Time B-Type Natriuretic Peptide 1186 PG/ML Urine Color LIGHT-YELLOW Urine Turbidity CLEAR Urine pH 5.0 Urine Specific [place] 1.007 Urine Protein NEG mg/dL Urine Glucose (UA) NEG mg/dL Urine Ketones NEG mg/dL Urine Occult Blood NEG Urine Nitrite NEG Urine Bilirubin NEG Urine Urobilinogen LESS THAN 2.0 MG/DL Urine Leukocyte Esterase SMALL Urine RBC LESS THAN 1 /hpf Urine WBC 5 /hpf Urine Squamous Epithelial <1 /hpf Cells Urine Bacteria RARE /hpf Microscopic Urinalysis Comment CULT NOT INDICATED Nasal Screen MRSA (PCR) POSITIVE Test 06/25/16 03:54 White Blood Count 9.1 TH/MM3 Red Blood Count 3.91 MIL/MM3 Hemoglobin 11.8 GM/DL Hematocrit 35.3 % Mean Corpuscular Volume 90.3 FL Mean Corpuscular Hemoglobin 30.2 PG Mean Corpuscular Hemoglobin 33.5 % Concent Red Cell Distribution Width 16.2 % Platelet Count 156 TH/MM3 Mean Platelet Volume 10.8 FL Neutrophils (%) (Auto) 73.0 % Lymphocytes (%) (Auto) 12.1 % Monocytes (%) (Auto) 9.4 % Eosinophils (%) (Auto) 4.5 % Basophils (%) (Auto) 1.0 % Neutrophils # (Auto) 6.6 TH/MM3 Lymphocytes # (Auto) 1.1 TH/MM3 Monocytes # (Auto) 0.9 TH/MM3 Eosinophils # (Auto) 0.4 TH/MM3 Basophils # (Auto) 0.1 TH/MM3 CBC Comment DIFF FINAL Differential Comment Sodium Level 141 MEQ/L Potassium Level 3.8 MEQ/L Chloride Level 105 MEQ/L Carbon Dioxide Level 27.4 MEQ/L Anion Gap 9 MEQ/L Blood Urea Nitrogen 40 MG/DL Creatinine 1.75 MG/DL Estimat Glomerular Filtration 37 ML/MIN Rate Random Glucose 116 MG/DL Calcium Level 9.8 MG/DL Total Bilirubin 0.7 MG/DL Aspartate Amino Transf 25 U/L (AST/SGOT) Alanine Aminotransferase 25 U/L (ALT/SGPT) Alkaline Phosphatase 63 U/L Total Protein 6.9 GM/DL Albumin 3.1 GM/DL Physical Exam General General Appearance: Well Developed, No Acute Distress, Malnourished Eyes Eye Exam: Pupils Equal, Pupils Reactive Ears & Nose Ears & Nose Exam: Nasal Mucosa [place] Throat Throat Exam: Oral Mucosa [place] & Moist Neck Neck Exam: Neck Supple, Trachea Midline Pulmonary Resp Exam: Crackles, Rhonchi Resp Remarks Mechanically intubated Gastrointestinal/Abdomen GI Exam: Soft, Non-Tender, Bowel Sounds Present, Non-Distended Musculoskeletal MS Exam: Joints Intact Integumentary Skin Exam: Warm, Dry Extremeties Extremities Exam: No Edema, Pedal Pulses Palpable Neurologic Neuro Exam: Sedated VTE Prophylaxis VTE Prophylaxis Device: SCDs VTE Prophylaxis Meds: Heparin PUD Prophylasis PUD Prophylaxis: Protonix Assessment/Plan Problem List: (1) Respiratory failure (2) Congestive heart failure (CHF) (3) NSVT (nonsustained ventricular tachycardia) (4) Hypertension (5) Valvular heart disease (6) Hx recent TAVR (7) CAD (coronary artery disease) (8) Pgewt-ed-ifityxm kidney injury Assessment/Plan 89 year old elderly male admitted with NSVT and CHF. Overnight, patient developed agitation, went into respiratory failure. Intubated on 06/25/2016 Respiratory failure sec. fluid overload. Critical care now managing, their input is appreciated Continue with Lasix 40 mg IV twice a day Acute on chronic congestive heart failure, hx TAVR, cardiomyopathy. 2-D echo pending Cardiology input appreciated, Dr. Marquez following Continue with Lasix IV Monitor intake and output NSVT -Continue lidocaine drip, dysrhythmia episodes improving. Per cardiology notes, the plan is for pacemaker and change to amiodarone by mouth. At this time, procedure is on hold until patient more stable. Possible underlying pneumonia Continue with antibiotics A sputum culture pending Follow cultures Acute on chronic renal injury Monitor renal function Avoid nephrotoxic -Creatinine slightly improved Hypertension, blood pressure labile, at times 90s up to 150s. Monitor closely for now CAD -continue with medical management Will start heparin for DVT prophylaxis Protonix for GI prophylaxis Patient's condition guarded Labs reviewed D/W RN D/W Dr. Reed This patient was seen by myself and Dr. Reed, this note is written on her behalf. Problem Qualifiers (1) Respiratory failure: (2) Congestive heart failure (CHF): Qualified Code: I50.9 - Acute on chronic congestive heart failure, unspecified congestive heart failure type (3) Hypertension: Qualified Code: I10 - Essential hypertension (4) CAD (coronary artery disease): Qualified Code: I25.10 - Coronary artery disease involving [place] coronary artery of [place] heart without angina pectoris Nori Dave [facility] Jun 25, 2016 09:41
[2016-06-25 09:46] LABS: BLOOD GAS BASE EXCESS 0.7 mmol/L (-2-2); BLOOD GAS CARBOXYHEMOGLOBIN 1.3 % (0-4); BLOOD GAS HCO3 25 mmol/L (22-26); BLOOD GAS METHEMOGLOBIN 1.1 % (0-2); BLOOD GAS O2 HGB SATURATION 96 % (90-100); BLOOD GAS OXYGEN CONTENT 14.7 Vol % (12.0-20.0); BLOOD GAS PCO2 42 mmHg (38-42); BLOOD GAS PO2 114 mmHg (61-120); BLOOD GAS TOTAL HGB 10.8 G/DL (12.0-16.0); CRITICAL VALUE NO; DRAW SITE RT RADIAL; FIO2 50 %; NUMBER OF ARTERIAL PUNCTURES 1; OXYGEN DEVICE VENTILATOR; STAT NO; TEMP CORR TO 98.6; ULNAR PULSE PRESENT; VENT SETTINGS AC/14/450/PEEP5
[2016-06-25] MEDS: SODIUM CHLOR 0.9% 1000 ML INJ 1,000 ML IV SCH (10:27)
[2016-06-25] MEDS: SODIUM CHLORIDE 0.9% FLUSH 10 ML FLUSH IV FLUSH SCH ×2 (10:28→20:32)
[2016-06-25] MEDS: CHOLECALCIFEROL (VIT D3) 5000 UNIT CAP PO SCH (10:29)
[2016-06-25] MEDS: FUROSEMIDE 40 MG/4 ML VIAL IV PUSH SCH ×2 (10:29→18:00)
[2016-06-25] MEDS: GABAPENTIN 300 MG CAP PO SCH (10:29)
[2016-06-25] MEDS: ALLOPURINOL 100 MG TAB PO SCH (10:30)
[2016-06-25] MEDS: LIDOCAINE/D5W INJ 500 ML IV SCH (12:52)
--- NOTE | 2016-06-25 13:34 | EKG ---
Date Performed: 06/24/2016 Time Performed: 11:30:37 PTAGE: 89 years EKG: ATRIAL FIBRILLATION WITH RAPID VENTRICULAR RESPONSE WITH ABERRANT CONDUCTION OR VENTRICULAR PREMATURE COMPLEXES INTRAVENTRICULAR CONDUCTION DELAY LATERAL MYOCARDIAL INFARCTION ABNORMAL ECG PREVIOUS TRACING : 06/24/2016 11.19 Compared to prior tracing no significant change DOCTOR: Marco A Méndez Interpretating Date/Time 06/25/2016 13:33:32
--- NOTE | 2016-06-25 13:34 | EKG ---
Date Performed: 06/24/2016 Time Performed: 11:19:05 PTAGE: 89 years EKG: ATRIAL FIBRILLATION WITH ABERRANT CONDUCTION OR VENTRICULAR PREMATURE COMPLEXES INTRAVENTRI CULAR CONDUCTION DELAY PREVIOUS TRACING : 12/15/2015 18.25 Compared to prior tracing no significant change DOCTOR: Marco A Méndez Interpretating Date/Time 06/25/2016 13:33:51
[2016-06-25] MEDS ORDERED: VANCOMYCIN INJ 1,000 MG in SODIUM CHLOR 0.9% 250 ML INJ 250 ML IV SCH (15:00)
[2016-06-25] MEDS ORDERED: VANCOMYCIN 500 MG VIAL ONE (15:25)
[2016-06-25] MEDS ORDERED: LIDOCAINE HCL 2% 50 ML VIAL ONE (15:25)
[2016-06-25] MEDS ORDERED: AMIODARONE INJ 900 MG in D5W 500 ML (EXCEL BAG) 482 ML IV SCH (16:45)
[2016-06-25] MEDS ORDERED: traMADol HCL 50 MG TAB PO PRN (16:45)
[2016-06-25] MEDS ORDERED: AMIODARONE INJ 150 MG in DEXTROSE 5% IN WATER 100ML INJ 97 ML IV ONE ×2 (16:45)
--- NOTE | 2016-06-25 16:50 | EC ---
Study Study Date:06/25/2016 STUDY CONCLUSIONS SUMMARY - Left ventricle: The cavity size was dilated. Wall thickness was normal. Systolic function was severely reduced by visual assessment. The estimated ejection fraction was in the range of 15% to 20%. Diffuse hypokinesis. - Mitral valve: Moderate regurgitation. - Left atrium: The atrium was mildly dilated. - Right atrium: The atrium was mildly dilated. - Tricuspid valve: Mild-moderate regurgitation. If LV function is below 40, please consider prescribing an ACEI or ARB or document rationale for non-use. PROCEDURE DATA STUDY STATUS: Elective. Procedure: Transthoracic echocardiography. Image quality was good. Scanning was performed from the parasternal, apical, and subcostal acoustic windows. Study completion: The patient tolerated the procedure well. Transthoracic echocardiography. M-mode, complete 2D, complete spectral Doppler, and color Doppler. Patient status: Inpatient. CARDIAC ANATOMY LEFT VENTRICLE: The cavity size was dilated. Wall thickness was normal. Systolic function was severely reduced by visual assessment. The estimated ejection fraction was in the range of 15% to 20%. Diffuse hypokinesis. AORTIC VALVE: Trileaflet; normal thickness leaflets. Doppler: Transvalvular velocity was within the normal range. There was no stenosis. No regurgitation. AORTA: Aortic root: The aortic root was normal in size. MITRAL VALVE: Structurally normal valve. Doppler: Transvalvular velocity was within the normal range. There was no evidence for stenosis. Moderate regurgitation. LEFT ATRIUM: The atrium was mildly dilated. RIGHT VENTRICLE: The cavity size was normal. Wall thickness was normal. PULMONIC VALVE: Doppler: Transvalvular velocity was within the normal range. There was no evidence for stenosis. No regurgitation. TRICUSPID VALVE: Structurally normal valve. Doppler: Transvalvular velocity was within the normal range. Mild-moderate regurgitation. PULMONARY ARTERY: The main pulmonary artery was normal-sized. Systolic pressure was within the normal range. RIGHT ATRIUM: The atrium was mildly dilated. PERICARDIUM: There was no pericardial effusion. SYSTEMIC VEINS: Inferior vena cava: The vessel was dilated. Prepared and signed by Jacek Calabrese [id number]
--- NOTE | 2016-06-25 17:34 | RADRPT ---
EXAM DATE/TIME: 06/25/2016 17:13 [place] COMPARISON: CHEST SINGLE AP, July 16, 2015, 2:05. CHEST SINGLE AP, June 25, 2016, 9:13. INDICATIONS : Pneumothorax MEDICAL HISTORY : Congestive heart failure SURGICAL HISTORY : heart valve surgery ENCOUNTER: Subsequent ACUITY: 2 days PAIN SCORE: Non-responsive. LOCATION: Bilateral chest FINDINGS: Pacemaker device is noted with control pack over the left chest. There is no evidence of pneumothorax or other complication of placement. Endotracheal tube is present in satisfactory position with tip 5 cm above the shwetha. Nasogastric tube descends into the stomach. Aortic valve prosthesis is again no selvin. Patchy bilateral pleural-parenchymal calcifications are stable. There is mild right perihilar in filtrate and left base infiltrate may be superimposed inflammatory disease. No significant change. Ca rdiac contours are grossly stable CONCLUSION: No evidence of pneumothorax Ludin Florentino MD on June 25, 2016 at 17:28 Board Certified Radiologist. This report was verified electronically.
[2016-06-25] MEDS ORDERED: FUROSEMIDE 40 MG/4 ML VIAL IV PUSH ONE (18:00)
[2016-06-25] MEDS ORDERED: hydrALAZINE HCL 20 MG/ML VIAL IV PUSH PRN (18:15)
[2016-06-25] MEDS: CHLORHEXIDINE 0.12% (ORAL KIT) 15 ML CUP MT SCH (20:00)
[2016-06-25] MEDS: POVIDONE IODINE 5% (ANTISEPSIS KIT) 4 APPLICATIONS TOPICAL SCH (20:32)
[2016-06-25] MEDS: CHLORHEXIDINE GLUCONATE 2 % 1 PACK (2 CLOTHS) TOPICAL SCH (20:32)
[2016-06-25] MEDS: MUPIROCIN 2% OINT 1 APPLIC/GM SYR EACH NARE SCH (20:32)
[2016-06-25] MEDS ORDERED: HEPARIN SODIUM - SQ 10,000 UNITS/ML VIAL SQ SCH (21:00)
[2016-06-26] VITALS (11 sets, daily range): BP systolic 107–182; BP diastolic 58–83; PULSE 72–103; RESP 16–26; TEMP 98.8–100.8; O2SAT 97–100
[2016-06-26] MEDS ORDERED: VANCOMYCIN INJ 1,000 MG in SODIUM CHLOR 0.9% 250 ML INJ 250 ML IV ONE (05:00)
[2016-06-26] MEDS ORDERED: AMIODARONE INJ 150 MG in DEXTROSE 5% IN WATER 100ML INJ 97 ML IV ONE ×2 (07:30)
[2016-06-26] MEDS: GABAPENTIN 300 MG CAP PO SCH (07:33)
[2016-06-26] MEDS: FUROSEMIDE 40 MG/4 ML VIAL IV PUSH SCH ×2 (07:33→17:15)
[2016-06-26] MEDS: TAMSULOSIN HCL 0.4 MG CAP PO SCH (07:33)
[2016-06-26] MEDS: ALLOPURINOL 100 MG TAB PO SCH (07:33)
[2016-06-26] MEDS: CHOLECALCIFEROL (VIT D3) 5000 UNIT CAP PO SCH (07:33)
[2016-06-26] MEDS: ASPIRIN EC 81 MG TABEC PO SCH (07:33)
[2016-06-26] MEDS: CHLORHEXIDINE 0.12% (ORAL KIT) 15 ML CUP MT SCH ×2 (07:34→20:00)
[2016-06-26] MEDS: SODIUM CHLOR 0.9% 1000 ML INJ 1,000 ML IV SCH (07:34)
[2016-06-26] MEDS: PANTOPRAZOLE SOD 40 MG DELAYED RELEASE TAB PO SCH (07:34)
[2016-06-26] MEDS: SODIUM CHLORIDE 0.9% FLUSH 10 ML FLUSH IV FLUSH SCH ×2 (07:34→21:04)
[2016-06-26] MEDS: FINASTERIDE 5 MG TAB PO SCH (07:34)
[2016-06-26] MEDS: AMIODARONE INJ 450 MG in DEXTROSE 5% IN WATE(EXCEL) INJ 250 ML IV SCH ×4 (07:40→17:02)
--- NOTE | 2016-06-26 08:13 | PD.CARD.PN ---
Subjective Subjective Remarks Intubated. Coming off sedation. Restless. Objective Medications Item Value Date Time Heparin Sodium 5,000 units 06/24/16 1600 (Porcine) Q12H/SQ (Heparin Inj) Amiodarone HCl 259 ml @ 0 mls/hr 06/26/16 0730 450 mg/Dextrose CONTINUOUS/IV 06/26/16 0740 Aspirin 81 mg 06/25/16 0900 (Ecotrin Ec) DAILY/PO Furosemide 40 mg 06/25/16 0900 (Lasix Inj) BID@18/IV PUSH 06/26/16 0733 Vital Signs / I&O Vital Signs Date Time Temp Pulse Resp B/P Pulse Ox O2 Delivery O2 Flow Rate FiO2 06/26/16 04:15 100 50 06/26/16 04:00 98.8 78 16 182/83 100 06/26/16 04:00 45 06/26/16 01:18 100 50 06/26/16 00:00 98.8 86 16 126/74 100 06/26/16 00:00 45 06/25/16 22:04 100 50 06/25/16 20:00 96.5 68 15 165/86 100 06/25/16 20:00 45 06/25/16 19:35 100 45 06/25/16 15:00 99 60 06/25/16 12:00 50 06/25/16 12:00 96.5 69 16 113/66 100 06/25/16 10:48 100 45 06/25/16 09:10 99 50 06/25/16 08:45 50 I/O 06/25/16 06/25/16 06/25/16 06/26/16 06/26/16 06/26/16 07:00 15:00 23:00 07:00 15:00 23:00 Intake Total 281 ml 379 ml 281 ml 174 ml Output Total 800 ml 1850 ml 600 ml Balance 281 ml -421 ml -1569 ml -426 ml Intake IV Total 281 ml 319 ml 281 ml 174 ml Other 60 ml Output Urine Total 750 ml 1850 ml 600 ml Gastric Drainage Total 50 ml # Voids 2 1 Physical Exam GENERAL: Well developed, well nourished. No acute distress. HEENT: Jugular venous pressure 10 cm water. CHEST: Clear lung cote anteriorly. Pacer site clean, dry, intact, no hematoma. CARDIAC: Regular rate and rhythm without S3, S4. I/ ISAI RUSB. ABDOMEN: Soft, nontender, no hepatosplenomegaly. Bowel sounds present. EXTREMITIES: No clubbing, cyanosis, or edema. Laboratory Laboratory Tests Test 06/25/16 06/26/16 09:30 03:08 Blood Gas Puncture Site RT RADIAL Blood Gas Patient Temperature 98.6 Blood Gas HCO3 25 mmol/L Blood Gas Base Excess 0.7 mmol/L Blood Gas Oxygen Saturation 96 % Arterial Blood pH 7.39 Arterial Blood Partial 42 mmHg Pressure CO2 Arterial Blood Partial 114 mmHg Pressure O2 Arterial Blood Oxygen Content 14.7 Vol % Arterial Blood 1.3 % Carboxyhemoglobin Arterial Blood Methemoglobin 1.1 % Blood Gas Hemoglobin 10.8 G/DL Oxygen Delivery Device VENTILATOR Blood Gas Ventilator Setting AC/14/450/PEEP5 Blood Gas Inspired Oxygen 50 % Sodium Level 143 MEQ/L Potassium Level 4.0 MEQ/L Chloride Level 105 MEQ/L Carbon Dioxide Level 28.0 MEQ/L Anion Gap 10 MEQ/L Blood Urea Nitrogen 30 MG/DL Creatinine 1.47 MG/DL Estimat Glomerular Filtration 45 ML/MIN Rate Random Glucose 100 MG/DL Calcium Level 9.3 MG/DL Assessment and Plan Problem List: (1) Wide QRS ventricular tachycardia Assessment and Plan: Occasional to frequent ventricular triplets otherwise overall more stable on IV Amiodarone. Rec continue IV Amiodarone another 24 hours then change to 400 mg po bid. (2) Congestive heart failure (CHF) Assessment and Plan: Persistent CHF by CXRs. EF reportedly now down to 15-20% by echo this admission. Rec continued IV Lasix diuresis. Add beta july. No CHARLINE-I with his renal insufficiency. To be extubated this morning. (3) CAD (coronary artery disease) Assessment and Plan: Stable CAD status. No definite recent angina. Continue daily aspirin. Patient has refused lipid lowering therapy in the past. (4) Hypertension Assessment and Plan: Widely fluctuating BP's. Will try to add beta july. (5) History of aortic valve replacement Assessment and Plan: s/p TAVR Code Status full code Discussed Condition With patient's at length Problem Qualifiers (1) Congestive heart failure (CHF): Qualified Code: I50.21 - Acute systolic congestive heart failure (2) CAD (coronary artery disease): Qualified Code: I25.10 - Coronary artery disease involving [place] coronary artery of [place] heart without angina pectoris (3) Hypertension: Qualified Code: I10 - Essential hypertension Devyn Marquez MD Jun 26, 2016 08:13
[2016-06-26] MEDS: CARVEDILOL 3.125 MG TAB PO SCH ×2 (09:00→21:00)
--- NOTE | 2016-06-26 11:20 | HHI.PR ---
Subjective Subjective Remarks extubated this morning Had PPM 4/6 awakes to voice, very [place] less ectopy on Amiodarone + cough, congested no fever unable to obtain ROS (Nori Dave) Review of Systems Constitutional Constitutional Remarks 12 point review of systems unable to obtain (Nori Dave) Vitals/Results Intake & Output 06/25/16 06/25/16 06/26/16 15:00 23:00 07:00 Intake Total 379 ml 281 ml 174 ml Output Total 800 ml 1850 ml 600 ml Balance -421 ml -1569 ml -426 ml Intake IV Total 319 ml 281 ml 174 ml Other 60 ml Output Urine Total 750 ml 1850 ml 600 ml Gastric Drainage Total 50 ml # Voids 1 Vital Signs Vital Signs Date Time Temp Pulse Resp B/P Pulse Ox O2 Delivery O2 Flow Rate FiO2 06/26/16 08:05 98 Nasal Cannula 4.00 06/26/16 08:05 97 Nasal Cannula 4.00 06/26/16 08:05 98 Nasal Cannula 4 06/26/16 08:00 99.5 103 26 118/83 97 06/26/16 08:00 45 06/26/16 07:05 45 06/26/16 04:15 100 50 06/26/16 04:00 98.8 78 16 182/83 100 06/26/16 04:00 45 06/26/16 01:18 100 50 06/26/16 00:00 98.8 86 16 126/74 100 06/26/16 00:00 45 06/25/16 22:04 100 50 06/25/16 20:00 96.5 68 15 165/86 100 06/25/16 20:00 45 06/25/16 19:35 100 45 06/25/16 15:00 99 60 06/25/16 12:00 50 06/25/16 12:00 96.5 69 16 113/66 100 (Nori Dave) CBC/BMP: 06/25/16 0354 06/26/16 0308 Lab Results Laboratory Tests Test 06/26/16 03:08 Sodium Level 143 MEQ/L Potassium Level 4.0 MEQ/L Chloride Level 105 MEQ/L Carbon Dioxide Level 28.0 MEQ/L Anion Gap 10 MEQ/L Blood Urea Nitrogen 30 MG/DL Creatinine 1.47 MG/DL Estimat Glomerular Filtration 45 ML/MIN Rate Random Glucose 100 MG/DL Calcium Level 9.3 MG/DL Microbiology Microbiology 06/26/16 Gram Stain - Final, Resulted 06/26/16 Sputum Culture, Resulted Pending (Nori Dave) Physical Exam General General Appearance: Well Developed, No Acute Distress, Malnourished (Nori Dave. PIER HAND) Eyes Eye Exam: Pupils Equal, Pupils Reactive (Nori Dave PIER HAND) Ears & Nose Ears & Nose Exam: Nasal Mucosa [place] (Nori Dave. PIER HAND) Throat Throat Exam: Oral Mucosa [place] & Moist (Nori Dave G. PIER HAND) Neck Neck Exam: Neck Supple, Trachea Midline (Nori Dave PIER HAND) Pulmonary Resp Exam: Crackles, Rhonchi (Nori Dave G. PIER HAND) Cardiology CV Exam: Irregular, Arrhythmia, Pacemaker (Nori Dave G. PIER HAND) Chest/Breast Chest/Breast Remarks incision to left CW (Nori Dave PIER HAND) Gastrointestinal/Abdomen GI Exam: Soft, Non-Tender, Bowel Sounds Present, Non-Distended (Nori Dave G. PIER HAND) Musculoskeletal MS Exam: Joints Intact (Nori Dave. [place]ER HAND) Integumentary Skin Exam: Warm, Dry (Nori Dave PIER HAND) Extremeties Extremities Exam: No Edema, Pedal Pulses Palpable (Nori Dave G. PIER HAND) Neurologic Neuro Exam: Awake, Moving All Extremities, No Focal Deficits (Nori Dave G. PIER HAND) VTE Prophylaxis VTE Prophylaxis Device: SCDs VTE Prophylaxis Meds: Heparin (Nori Dave. [place]) PUD Prophylasis PUD Prophylaxis: Protonix (Nori Dave G. PIER HAND) Assessment/Plan Problem List: (1) Respiratory failure (2) Congestive heart failure (CHF) (3) NSVT (nonsustained ventricular tachycardia) (4) Hypertension (5) Valvular heart disease (6) Hx recent TAVR (7) CAD (coronary artery disease) (8) Vcjrf-pa-dwgsdua kidney injury Assessment/Plan 89 year old elderly male admitted with NSVT and CHF. Overnight, patient developed agitation, went into respiratory failure. Intubated on 06/25/2016 Respiratory failure sec. fluid overload. Extubated 06/26 Critical care managing, input appreciated -continue oxygen, duonebs Acute on chronic congestive heart failure, hx TAVR, cardiomyopathy. 2-D echo EF 15-20% Cardiology input appreciated, Dr. Marquez following Continue with Lasix IV Monitor intake and output Cardiomyopathy, echo with EF 15-20% -unable to have CHARLINE due to renal function -started on BB -may need Zoll vest NSVT S/P PPM 4/6 -On Amiodarone gtt, plan is to transition to PO -started on BB Possible underlying pneumonia Continue with antibiotics A sputum culture pending Follow cultures Acute on chronic renal injury Monitor renal function Avoid nephrotoxic -creat improving Hypertension, blood pressure labile, at times 90s up to 150s. started on Coreg, monitor CAD -continue with medical management Heparin for DVT prophylaxis Protonix for GI prophylaxis Patient's condition guarded Labs reviewed continue in ICU Labs in am D/W RN D/W Dr. Reed This patient was seen by myself and Dr. Reed, this note is written on her behalf. (Nori Dave) Assessment/Plan patient seen and examined, appears lethargic agree with above assessment and plan at bed side will need life vest Pt eval discussed with patient's discussed with nursing staff discussed with Nori MADSEN Discussed Condition with: Patient (Yamini Reed MD) Problem Qualifiers (1) Respiratory failure: (2) Congestive heart failure (CHF): Qualified Code: I50.21 - Acute systolic congestive heart failure (3) Hypertension: Qualified Code: I10 - Essential hypertension (4) CAD (coronary artery disease): Qualified Code: I25.10 - Coronary artery disease involving [place] coronary artery of [place] heart without angina pectoris Nori Dave Jun 26, 2016 11:20 Yamini Reed MD Jun 26, 2016 14:00
--- NOTE | 2016-06-26 15:02 | HHI.CCPN ---
Subjective Remarks/Hospital Course Syncope and collapse from ventricular arrhythmia. Received ativan last night X 2. He is quite somnolent now and does not protect his airway. He will require intubation and mechanical ventilation. 06/26: Pacer placed yesterday, working well. Should extubate easily when sedation stopped. Objective Vital Signs Date Time Temp Pulse Resp B/P Pulse Ox O2 Delivery O2 Flow Rate FiO2 06/26/16 12:00 100.0 72 18 107/58 97 06/26/16 08:05 Nasal Cannula 4.00 06/26/16 08:00 45 Intake and Output 06/25/16 06/25/16 06/26/16 08:00 16:00 00:00 Intake Total 281 ml 379 ml 281 ml Output Total 800 ml 1850 ml Balance 281 ml -421 ml -1569 ml Result Diagram: 06/25/16 0354 06/26/16 0308 Objective Remarks P 78, BP 147/822, R 12, vent. Head: Atraumatic. Neck: Orally intubated. Lungs: Good [place] air movement. No wheezes or crackles. Heart: RRR, no JVD. Freq V-tach - self terminating. Abdomen: Soft, benign. No guarding. BS active. Extremities: Well perfused. Neuro: Opens eyes to loud voice. Moves 4 limbs. A/P Assessment and Plan Assessment: 1. Respiratory Failure. 2. Encephalopathy, acute. 3. Ventricular Arrhythmia. 4. Syncope and collapse. Plan: 1. Intubation and mechanical ventilation, PRVC mode. 2. Proceed with electrical cardiac intervention today. 3. Light sedation with propofol. 4. Wean to extubate after procedure. 5. SCDs. 6. Protonix. 7. Amiodarone. Overall impression: Dual chamber pacer placed. Some v-tach noted. Requires intubation and mechanical ventilation. Remains critically ill and at risk for arrhythmia - will attempt extubated when OK with Cardiology Service. Critical care 34 mins aside from procedure. Lokesh Farrell MD Jun 26, 2016 15:02
[2016-06-26] MEDS: CHLORHEXIDINE GLUCONATE 2 % 1 PACK (2 CLOTHS) TOPICAL SCH (21:00)
[2016-06-26] MEDS: POVIDONE IODINE 5% (ANTISEPSIS KIT) 4 APPLICATIONS TOPICAL SCH (21:00)
[2016-06-26] MEDS: MUPIROCIN 2% OINT 1 APPLIC/GM SYR EACH NARE SCH (21:04)
[2016-06-27] VITALS (18 sets, daily range): BP systolic 107–146; BP diastolic 56–75; PULSE 50–86; RESP 17–22; TEMP 97.6–100; O2SAT 94–100
[2016-06-27 04:54] LABS: BICARBONATE 28.8 MEQ/L (21.0-32.0); POTASSIUM 3.5 MEQ/L (3.5-5.1)
[2016-06-27 05:08] LABS: HEMATOCRIT 37.9 % (39.0-51.0); MEAN CELL VOLUME 90.4 FL (80.0-100.0); MEAN CORPUSCULAR HEMOGLOBIN 30.6 PG (27.0-34.0); MEAN CORPUSCULAR HGB CONC 33.8 % (32.0-36.0); PLATELET COUNT 167 TH/MM3 (150-450); RED BLOOD COUNT 4.19 MIL/MM3 (4.50-5.90); RED CELL DISTRIBUTION WIDTH 15.8 % (11.6-17.2); REVIEW FLAG FINAL; WHITE BLOOD COUNT 9.2 TH/MM3 (4.0-11.0)
[2016-06-27] MEDS: AMIODARONE INJ 450 MG in DEXTROSE 5% IN WATE(EXCEL) INJ 250 ML IV SCH ×2 (06:29)
[2016-06-27] MEDS: SODIUM CHLOR 0.9% 1000 ML INJ 1,000 ML IV SCH (08:00)
[2016-06-27] MEDS: GABAPENTIN 300 MG CAP PO SCH (08:01)
[2016-06-27] MEDS: FINASTERIDE 5 MG TAB PO SCH (08:01)
[2016-06-27] MEDS: CARVEDILOL 3.125 MG TAB PO SCH ×3 (08:01→20:38)
[2016-06-27] MEDS: TAMSULOSIN HCL 0.4 MG CAP PO SCH (08:01)
[2016-06-27] MEDS: ASPIRIN EC 81 MG TABEC PO SCH (08:01)
[2016-06-27] MEDS: CHOLECALCIFEROL (VIT D3) 5000 UNIT CAP PO SCH (08:02)
[2016-06-27] MEDS: PANTOPRAZOLE SOD 40 MG DELAYED RELEASE TAB PO SCH (08:02)
[2016-06-27] MEDS: ALLOPURINOL 100 MG TAB PO SCH (08:02)
[2016-06-27] MEDS: CHLORHEXIDINE 0.12% (ORAL KIT) 15 ML CUP MT SCH ×2 (08:03→20:00)
[2016-06-27] MEDS: SODIUM CHLORIDE 0.9% FLUSH 10 ML FLUSH IV FLUSH SCH ×2 (08:19→20:39)
[2016-06-27] MEDS: FUROSEMIDE 40 MG/4 ML VIAL IV PUSH SCH ×2 (08:19→18:19)
--- NOTE | 2016-06-27 11:17 | HHI.PR ---
Subjective Subjective Remarks fever, low grade rhythm now SR, 90s hgb improved, 12.8 monitor PO intake awake (Janet Rascon) Review of Systems Constitutional Constitutional: Fatigue, Weakness Constitutional Remarks 10 point ROS done, positives noted, other systems neg. mild SOB at rest. (Janet Rascon) Pulmonary Respiratory: Shortness of Breath (mild ) (Janet Rascon) Cardiology CV Remarks sr, regular now (Janet Rascon) Musculoskeletal MS: Weakness, Stiffness, Swelling (trace edema) (Janet Rascon) Psychiatric Psychiatric: Normal Mood (Janet Rascon) Vitals/Results Intake & Output 06/26/16 06/26/16 06/27/16 15:00 23:00 07:00 Intake Total 700 ml 286 ml 326 ml Output Total 1550 ml 1000 ml 400 ml Balance -850 ml -714 ml -74 ml Intake IV Total 700 ml 286 ml 326 ml Output Urine Total 1550 ml 1000 ml 400 ml # Bowel Movements 0 0 0 Vital Signs Vital Signs Date Time Temp Pulse Resp B/P Pulse Ox O2 Delivery O2 Flow Rate FiO2 06/27/16 10:00 79 06/27/16 08:00 97.8 77 22 146/74 99 06/27/16 08:00 99 Nasal Cannula 2.00 Humidified 06/27/16 08:00 77 06/27/16 07:50 100 Nasal Cannula 2.00 06/27/16 06:00 86 06/27/16 04:00 99.7 73 20 131/69 100 06/27/16 04:00 73 06/27/16 02:00 74 06/27/16 00:00 72 06/27/16 00:00 100.0 72 17 136/72 100 06/26/16 22:00 83 06/26/16 20:20 100 Nasal Cannula 4.00 06/26/16 20:00 100.8 78 24 152/70 99 06/26/16 20:00 89 06/26/16 19:00 98 Nasal Cannula 4.00 06/26/16 16:00 100.3 75 20 117/61 100 06/26/16 12:00 100.0 72 18 107/58 97 (Janet Rascon) CBC/BMP: 06/27/16 0349 06/27/16 0348 Lab Results Laboratory Tests Test 06/27/16 06/27/16 03:48 03:49 Sodium Level 143 MEQ/L Potassium Level 3.5 MEQ/L Chloride Level 103 MEQ/L Carbon Dioxide Level 28.8 MEQ/L Anion Gap 11 MEQ/L Blood Urea Nitrogen 26 MG/DL Creatinine 1.40 MG/DL Estimat Glomerular Filtration 48 ML/MIN Rate Random Glucose 122 MG/DL Calcium Level 9.5 MG/DL Magnesium Level 2.0 MG/DL White Blood Count 9.2 TH/MM3 Red Blood Count 4.19 MIL/MM3 Hemoglobin 12.8 GM/DL Hematocrit 37.9 % Mean Corpuscular Volume 90.4 FL Mean Corpuscular Hemoglobin 30.6 PG Mean Corpuscular Hemoglobin 33.8 % Concent Red Cell Distribution Width 15.8 % Platelet Count 167 TH/MM3 Mean Platelet Volume 10.8 FL Imaging Remarks Last Impressions Chest X-Ray 06/25/16 0000 Signed Impressions: Service Date/Time: June 17:13 - CONCLUSION: No evidence of pneumothorax Ludin Florentino MD (Janet Rascon) Physical Exam General General Appearance: Well Developed, No Acute Distress, Malnourished (Janet RasconP) Eyes Eye Exam: Pupils Equal, Pupils Reactive (Janet Rascon. ASSOCIATE PROFESSOR) Ears & Nose Ears & Nose Exam: Nasal Mucosa [place] (Janet RasconP) Throat Throat Exam: Oral Mucosa [place] & Moist (Janet RasconP) Neck Neck Exam: Neck Supple, Trachea Midline (Janet RasconP) Pulmonary Resp Exam: Crackles, Rhonchi, Diminished Breath Sounds Resp Remarks ? weak swallow, aspiration? (Janet RasconP) Cardiology CV Exam: Irregular, Arrhythmia, Pacemaker (Janet Rascon. ASSOCIATE PROFESSOR) Gastrointestinal/Abdomen GI Exam: Soft, Non-Tender, Bowel Sounds Present, Non-Distended (Janet Rascon. ASSOCIATE PROFESSOR) Musculoskeletal MS Exam: Joints Intact (Janet RasconP) Integumentary Skin Exam: Warm, Dry (Janet Rascon) Extremeties Extremities Exam: No Edema, Pedal Pulses Palpable (Janet Rascon ASSOCIATE PROFESSOR) Neurologic Neuro Exam: Awake, Moving All Extremities, No Focal Deficits (Janet Rascon ASSOCIATE PROFESSOR) VTE Prophylaxis VTE Prophylaxis Device: SCDs VTE Prophylaxis Meds: Heparin (AbiodunJanet. ASSOCIATE PROFESSOR) PUD Prophylasis PUD Prophylaxis: Protonix (AbiodunJanet easton ASSOCIATE PROFESSOR) Assessment/Plan Problem List: (1) Respiratory failure (2) Congestive heart failure (CHF) (3) NSVT (nonsustained ventricular tachycardia) (4) Hypertension (5) Valvular heart disease (6) Hx recent TAVR (7) CAD (coronary artery disease) (8) Hoyix-dp-naggsjh kidney injury Assessment/Plan Low-grade fever, which is slowly improving over the past 24 hours, continue IV antibiotics for now Respiratory failure sec. fluid overload. Extubated 06/26, O2 on -continue oxygen, duonebs Dysphasia, swallow weak, seen per ST, trial today of puree, and crushed by mouth meds if possible. If cough with food or meds, ST instructed nothing by mouth. Patient continues to have generalized weakness and may need a few days to recover. Acute on chronic congestive heart failure, hx TAVR, cardiomyopathy. 2-D echo EF 15-20% Cardiology input appreciated, Dr. Marquez following, IV Amniodarone ready for PO ? Monitor swallow before removing IV. Appreciate Cardiology following, Lasix IV continue Monitor intake and output Cardiomyopathy, echo with EF 15-20% started on BB, heart rate 80's, -may need Zoll vest when stablized Possible underlying pneumonia Continue with antibiotics A sputum culture pending Follow cultures Acute on chronic renal injury, renal function improved Monitor labs Hypertension, blood pressure stable at 131/69, monitor Now on Coreg, and possibly will be added to by mouth amiodarone today Heparin for DVT prophylaxis Protonix for GI prophylaxis Patient's condition guarded D/W RN D/W Dr. Reed, patient seen on her behalf (Janet Rascon) Assessment/Plan Patient seen and examined agree with above assessment and plan likely switch to po Amio today incentive spirometer senokot for constipation discussed with patient discused with nursing staff discussed with Marilin hardwick in am not at bed side (Yamini Reed MD) Problem Qualifiers (1) Respiratory failure: (2) Congestive heart failure (CHF): Qualified Code: I50.21 - Acute systolic congestive heart failure (3) Hypertension: Qualified Code: I10 - Essential hypertension (4) CAD (coronary artery disease): Qualified Code: I25.10 - Coronary artery disease involving [place] coronary artery of [place] heart without angina pectoris Janet Rascon Jun 27, 2016 11:17 Yamini Reed MD Jun 27, 2016 12:15
--- NOTE | 2016-06-27 12:04 | HHI.CCPN ---
Subjective Remarks/Hospital Course Syncope and collapse from ventricular arrhythmia. Received ativan last night X 2. He is quite somnolent now and does not protect his airway. He will require intubation and mechanical ventilation. 06/26: Pacer placed yesterday, working well. Should extubate easily when sedation stopped. 06/27: Breathing comfortably. Weak, a little confused. K 3.5; replace. Objective Vital Signs Date Time Temp Pulse Resp B/P Pulse Ox O2 Delivery O2 Flow Rate FiO2 06/27/16 10:00 79 06/27/16 08:00 97.8 22 146/74 99 06/27/16 08:00 Nasal Cannula 2.00 Humidified 06/26/16 08:00 45 Intake and Output 06/26/16 06/26/16 06/27/16 08:00 16:00 00:00 Intake Total 174 ml 700 ml 286 ml Output Total 600 ml 1550 ml 1000 ml Balance -426 ml -850 ml -714 ml Result Diagram: 06/27/16 0349 06/27/16 0348 Objective Remarks P 79, BP 146/74, R 15, Sats 92% on NC Head: Atraumatic. Neck: Stiff consistent with age, orally intubated Lungs: Good [place]selyn air movement. No wheezes or crackles. Heart: RRR, no JVD. Occasional V-tach - self terminating. Abdomen: Soft, benign. No guarding. BS active. Extremities: Well perfused. Warm. Neuro: Opens eyes to loud voice. Moves 4 limbs. Conversant, hard of hearing. A/P Assessment and Plan Assessment: 1. Respiratory Failure -> resolved. 2. Encephalopathy, acute -> improved. 3. Ventricular Arrhythmia. 4. Syncope and collapse. Plan: 1. NC O2. 2. Up in chair. 3. No sedation. 4. Cardiology Rx for arrhythmias. 5. SCDs. 6. Protonix. 7. Amiodarone. 8. Possible vest for discharge Overall impression: Dual chamber pacer placed. Extubated, comfortable, well perfused. Lokesh Farrell MD Jun 27, 2016 12:04
[2016-06-27] MEDS: POTASSIUM CHLOR 20 MEQ PREMIX 100 ML IV SCH ×2 (12:12→12:27)
[2016-06-27] MEDS: SENNOSIDES 8.6 MG TAB PO SCH (12:23)
--- NOTE | 2016-06-27 12:56 | PD.CARD.PN ---
Subjective Subjective Remarks no complaints extubated Objective Medications Current Medications Medications (Trade) Dose Ordered Sig/[place] Route Start Time Stop Time Status Last Admin (NS 1000 ml Inj) 1,000 ml @ 20 mls/hr Q24H IV 06/25/16 08:00 06/26/16 07:34 (Betadine 5% Antisepsis Kit) 1 applic HS TOPICAL 06/24/16 21:00 06/26/16 21:00 (NS Flush) 2 ml UNSCH PRN IV FLUSH 06/24/16 14:45 (NS Flush) 2 ml BID IV FLUSH 06/24/16 21:00 06/27/16 08:19 (Zofran Inj) 4 mg Q6H PRN IVP 06/24/16 14:45 (Reglan Inj) 5 mg Q6H PRN IV PUSH 06/24/16 14:45 (Narcan Inj) 0.4 mg UNSCH PRN IV 06/24/16 14:45 (Zyloprim) 100 mg DAILY PO 06/25/16 09:00 06/26/16 07:33 (Ecotrin Ec) 81 mg DAILY PO 06/25/16 09:00 (Vitamin D3) 5,000 units DAILY PO 06/25/16 09:00 06/26/16 07:33 (Neurontin) 300 mg DAILY PO 06/25/16 09:00 06/26/16 07:33 (Protonix) 40 mg DAILY PO 06/25/16 09:00 (Flomax) 0.4 mg DAILY PO 06/25/16 09:00 (Proscar) 5 mg DAILY PO 06/25/16 09:00 (Lasix Inj) 40 mg BID@09,18 IV PUSH 06/25/16 09:00 06/27/16 08:19 Chlorhexidine Gluconate 15 ml 15 ml BID@08,20 MT 06/25/16 20:00 06/27/16 08:03 (Diprivan 1000 Mg/100ml Inj) 100 ml @ 0 mls/hr TITRATE IV 06/25/16 09:00 (Ultram) 50 mg Q6H PRN PO 06/25/16 16:45 (Apresoline Inj) 10 mg Q3H PRN IV PUSH 06/25/16 18:15 06/26/16 07:33 Carvedilol 3.125 mg 3.125 mg Q12HR PO 06/26/16 09:00 06/27/16 11:08 (KCl 20 Meq Premix Inj) 100 ml @ 50 mls/hr Q2H IV 06/27/16 12:15 06/27/16 16:14 06/27/16 12:27 (Senokot) 8.6 mg DAILY PO 06/27/16 12:30 06/27/16 12:23 Vital Signs / I&O Vital Signs Date Time Temp Pulse Resp B/P Pulse Ox O2 Delivery O2 Flow Rate FiO2 06/27/16 12:00 65 06/27/16 12:00 97.8 65 20 129/69 99 06/27/16 10:00 79 06/27/16 08:00 97.8 77 22 146/74 99 06/27/16 08:00 99 Nasal Cannula 2.00 Humidified 06/27/16 08:00 77 06/27/16 07:50 100 Nasal Cannula 2.00 06/27/16 06:00 86 06/27/16 04:00 99.7 73 20 131/69 100 06/27/16 04:00 73 06/27/16 02:00 74 06/27/16 00:00 72 06/27/16 00:00 100.0 72 17 136/72 100 06/26/16 22:00 83 06/26/16 20:20 100 Nasal Cannula 4.00 06/26/16 20:00 100.8 78 24 152/70 99 06/26/16 20:00 89 06/26/16 19:00 98 Nasal Cannula 4.00 06/26/16 16:00 100.3 75 20 117/61 100 I/O 06/26/16 06/26/16 06/26/16 06/27/16 06/27/16 06/27/16 07:00 15:00 23:00 07:00 15:00 23:00 Intake Total 174 ml 700 ml 286 ml 326 ml Output Total 600 ml 1550 ml 1000 ml 400 ml Balance -426 ml -850 ml -714 ml -74 ml Intake IV Total 174 ml 700 ml 286 ml 326 ml Output Urine Total 600 ml 1550 ml 1000 ml 400 ml # Bowel Movements 0 0 0 Physical Exam GENERAL: Well-nourished, well-developed patient. SKIN: Warm and dry. HEAD: Normocephalic. EYES: No scleral icterus. No injection or drainage. NECK: Supple, trachea midline. No JVD or lymphadenopathy. CARDIOVASCULAR: Regular rate and rhythm without murmurs, gallops, or rubs. RESPIRATORY: Breath sounds equal bilaterally. No accessory muscle use. GASTROINTESTINAL: Abdomen soft, non-tender, nondistended. EXTREMITIES: No cyanosis, or edema. Laboratory Laboratory Tests Test 06/27/16 06/27/16 03:48 03:49 Sodium Level 143 MEQ/L Potassium Level 3.5 MEQ/L Chloride Level 103 MEQ/L Carbon Dioxide Level 28.8 MEQ/L Anion Gap 11 MEQ/L Blood Urea Nitrogen 26 MG/DL Creatinine 1.40 MG/DL Estimat Glomerular Filtration 48 ML/MIN Rate Random Glucose 122 MG/DL Calcium Level 9.5 MG/DL Magnesium Level 2.0 MG/DL White Blood Count 9.2 TH/MM3 Red Blood Count 4.19 MIL/MM3 Hemoglobin 12.8 GM/DL Hematocrit 37.9 % Mean Corpuscular Volume 90.4 FL Mean Corpuscular Hemoglobin 30.6 PG Mean Corpuscular Hemoglobin 33.8 % Concent Red Cell Distribution Width 15.8 % Platelet Count 167 TH/MM3 Mean Platelet Volume 10.8 FL Imaging Last Impressions Chest X-Ray 06/25/16 0000 Signed Impressions: Service Date/Time: June 17:13 - CONCLUSION: No evidence of pneumothorax Ludin Florentino MD Assessment and Plan Problem List: (1) Wide QRS ventricular tachycardia Assessment and Plan: Switch amio IV to 400 mg po bid. Continued IV Lasix diuresis. No CHARLINE-I given his renal insufficiency. Continue daily aspirin. Patient has refused lipid lowering therapy in the past. (2) Congestive heart failure (CHF) (3) CAD (coronary artery disease) (4) Hypertension (5) History of aortic valve replacement Problem Qualifiers (1) Congestive heart failure (CHF): Qualified Code: I50.21 - Acute systolic congestive heart failure (2) CAD (coronary artery disease): Qualified Code: I25.10 - Coronary artery disease involving [place] coronary artery of [place] heart without angina pectoris (3) Hypertension: Qualified Code: I10 - Essential hypertension Ron Pritchard MD Jun 27, 2016 12:56
[2016-06-27] MEDS ORDERED: CLOTR1%T LEFT EAR (15:24)
[2016-06-27] MEDS ORDERED: AMIODARONE 200 MG TAB PO ONE (17:00)
[2016-06-27] MEDS: MUPIROCIN 2% OINT 1 APPLIC/GM SYR EACH NARE SCH (20:39)
[2016-06-27] MEDS: CLOTRIMAZOLE 1% SOLN 30 ML BTL SCH (20:41)
[2016-06-27] MEDS: CHLORHEXIDINE GLUCONATE 2 % 1 PACK (2 CLOTHS) TOPICAL SCH (20:49)
[2016-06-27] MEDS: POVIDONE IODINE 5% (ANTISEPSIS KIT) 4 APPLICATIONS TOPICAL SCH (20:49)
[2016-06-28] VITALS (26 sets, daily range): BP systolic 102–160; BP diastolic 56–82; PULSE 49–72; RESP 14–20; TEMP 97.6–98.8; O2SAT 92–99
[2016-06-28 05:31] LABS: BICARBONATE 31.6 MEQ/L (21.0-32.0); POTASSIUM 3.8 MEQ/L (3.5-5.1)
[2016-06-28 05:48] LABS: AUTOMATED NEUTROPHIL # 8.5 TH/MM3 (1.8-7.7); BASOPHIL # 0.1 TH/MM3 (0-0.2); BASOPHIL % 0.6 % (0.0-2.0); EOSINOPHIL # 0.4 TH/MM3 (0-0.4); EOSINOPHIL % 3.8 % (0.0-4.0); HEMATOCRIT 33.8 % (39.0-51.0); HEMO FLAGS DIFF FINAL; LYMPH % 6.5 % (9.0-44.0); LYMPHOCYTE # 0.7 TH/MM3 (1.0-4.8); MEAN CELL VOLUME 89.8 FL (80.0-100.0); MEAN CORPUSCULAR HEMOGLOBIN 30.5 PG (27.0-34.0); MEAN CORPUSCULAR HGB CONC 33.9 % (32.0-36.0); NEUT % 77.1 % (16.0-70.0); PLATELET COUNT 165 TH/MM3 (150-450); RED BLOOD COUNT 3.76 MIL/MM3 (4.50-5.90); RED CELL DISTRIBUTION WIDTH 16.3 % (11.6-17.2)
[2016-06-28] MEDS: CHLORHEXIDINE 0.12% (ORAL KIT) 15 ML CUP MT SCH ×2 (08:00→20:00)
[2016-06-28] MEDS: SODIUM CHLOR 0.9% 1000 ML INJ 1,000 ML IV SCH (08:00)
[2016-06-28] MEDS: ALLOPURINOL 100 MG TAB PO SCH (08:55)
[2016-06-28] MEDS: ASPIRIN EC 81 MG TABEC PO SCH (08:55)
[2016-06-28] MEDS: CARVEDILOL 3.125 MG TAB PO SCH ×2 (08:55→20:41)
[2016-06-28] MEDS: AMIODARONE 200 MG TAB PO SCH ×2 (08:55→20:41)
[2016-06-28] MEDS: PANTOPRAZOLE SOD 40 MG DELAYED RELEASE TAB PO SCH (08:55)
[2016-06-28] MEDS: FINASTERIDE 5 MG TAB PO SCH (08:55)
[2016-06-28] MEDS: TAMSULOSIN HCL 0.4 MG CAP PO SCH (08:56)
[2016-06-28] MEDS: GABAPENTIN 300 MG CAP PO SCH (08:56)
[2016-06-28] MEDS: FUROSEMIDE 40 MG/4 ML VIAL IV PUSH SCH ×2 (08:56→17:43)
[2016-06-28] MEDS: SENNOSIDES 8.6 MG TAB PO SCH (08:56)
[2016-06-28] MEDS: SODIUM CHLORIDE 0.9% FLUSH 10 ML FLUSH IV FLUSH SCH ×2 (08:57→20:41)
[2016-06-28] MEDS: CHOLECALCIFEROL (VIT D3) 5000 UNIT CAP PO SCH (09:00)
[2016-06-28] MEDS: CLOTRIMAZOLE 1% SOLN 30 ML BTL SCH ×2 (09:00→20:42)
--- NOTE | 2016-06-28 10:11 | PD.CARD.PN ---
Subjective Subjective Remarks no CV complaints Objective Medications Current Medications Medications (Trade) Dose Ordered Sig/[place] Route Start Time Stop Time Status Last Admin (NS 1000 ml Inj) 1,000 ml @ 20 mls/hr Q24H IV 06/25/16 08:00 06/28/16 08:00 (Betadine 5% Antisepsis Kit) 1 applic HS TOPICAL 06/24/16 21:00 06/27/16 20:49 (NS Flush) 2 ml UNSCH PRN IV FLUSH 06/24/16 14:45 (NS Flush) 2 ml BID IV FLUSH 06/24/16 21:00 06/28/16 08:57 (Zofran Inj) 4 mg Q6H PRN IVP 06/24/16 14:45 (Reglan Inj) 5 mg Q6H PRN IV PUSH 06/24/16 14:45 (Narcan Inj) 0.4 mg UNSCH PRN IV 06/24/16 14:45 (Zyloprim) 100 mg DAILY PO 06/25/16 09:00 06/28/16 08:55 (Ecotrin Ec) 81 mg DAILY PO 06/25/16 09:00 06/28/16 08:55 (Vitamin D3) 5,000 units DAILY PO 06/25/16 09:00 06/26/16 07:33 (Neurontin) 300 mg DAILY PO 06/25/16 09:00 06/28/16 08:56 (Protonix) 40 mg DAILY PO 06/25/16 09:00 06/28/16 08:55 (Flomax) 0.4 mg DAILY PO 06/25/16 09:00 06/28/16 08:56 (Proscar) 5 mg DAILY PO 06/25/16 09:00 06/28/16 08:55 (Lasix Inj) 40 mg BID@09,18 IV PUSH 06/25/16 09:00 06/28/16 08:56 Chlorhexidine Gluconate 15 ml 15 ml BID@08,20 MT 06/25/16 20:00 06/27/16 08:03 (Diprivan 1000 Mg/100ml Inj) 100 ml @ 0 mls/hr TITRATE IV 06/25/16 09:00 (Ultram) 50 mg Q6H PRN PO 06/25/16 16:45 06/27/16 20:38 (Apresoline Inj) 10 mg Q3H PRN IV PUSH 06/25/16 18:15 06/26/16 07:33 (Coreg) 3.125 mg Q12HR PO 06/26/16 09:00 06/28/16 08:55 (Senokot) 8.6 mg DAILY PO 06/27/16 12:30 06/28/16 08:56 (Cordarone) 400 mg Q12HR PO 06/28/16 09:00 06/28/16 08:55 (Lotrimin 1% Top Soln) APPLY 3 DROPS TO EACH EAR BID .XX 06/27/16 21:00 06/28/16 09:00 Vital Signs / I&O Vital Signs Date Time Temp Pulse Resp B/P Pulse Ox O2 Delivery O2 Flow Rate FiO2 06/28/16 07:30 98 Nasal Cannula 2.00 06/28/16 07:30 98.0 72 20 159/82 98 06/28/16 06:00 60 06/28/16 05:00 56 20 138/76 98 06/28/16 05:00 56 06/28/16 04:00 55 20 160/79 92 06/28/16 04:00 56 06/28/16 03:00 55 20 134/64 96 06/28/16 03:00 60 06/28/16 02:00 56 20 124/65 92 06/28/16 02:00 56 06/28/16 01:00 55 20 128/67 93 06/28/16 01:00 58 06/28/16 00:00 52 06/28/16 00:00 55 20 122/71 92 06/27/16 23:38 97.7 60 20 119/70 97 06/27/16 23:00 56 06/27/16 22:00 52 20 126/71 94 06/27/16 22:00 56 06/27/16 21:35 20 06/27/16 21:00 54 06/27/16 21:00 55 20 122/72 96 06/27/16 20:02 Nasal Cannula 1.00 06/27/16 20:00 98.1 50 20 124/75 100 06/27/16 20:00 54 06/27/16 20:00 100 Nasal Cannula 2.00 06/27/16 19:47 55 20 124/75 97 06/27/16 19:00 61 06/27/16 18:00 98.3 53 18 123/69 98 06/27/16 18:00 59 06/27/16 16:00 97.6 52 21 107/56 100 06/27/16 16:00 52 06/27/16 15:30 97 Nasal Cannula 1.00 06/27/16 15:25 97 Room Air 06/27/16 15:00 98 Nasal Cannula 1.00 06/27/16 14:00 57 06/27/16 12:00 65 06/27/16 12:00 97.8 65 20 129/69 99 I/O 06/27/16 06/27/16 06/27/16 06/28/16 06/28/16 06/28/16 07:00 15:00 23:00 07:00 15:00 23:00 Intake Total 326 ml 424 ml 106 ml 520 ml Output Total 400 ml 800 ml 650 ml Balance -74 ml -376 ml 106 ml -130 ml Intake Oral 360 ml IV Total 326 ml 424 ml 106 ml 160 ml Output Urine Total 400 ml 800 ml 650 ml Emesis 0 ml # Bowel Movements 0 1 0 Physical Exam GENERAL: Well-nourished, well-developed patient. SKIN: Warm and dry. HEAD: Normocephalic. EYES: No scleral icterus. No injection or drainage. NECK: Supple, trachea midline. No JVD or lymphadenopathy. CARDIOVASCULAR: Regular rate and rhythm without murmurs, gallops, or rubs. RESPIRATORY: Breath sounds equal bilaterally. No accessory muscle use. GASTROINTESTINAL: Abdomen soft, non-tender, nondistended. EXTREMITIES: No cyanosis, or edema. Laboratory Laboratory Tests Test 06/28/16 04:50 White Blood Count 11.0 TH/MM3 Red Blood Count 3.76 MIL/MM3 Hemoglobin 11.5 GM/DL Hematocrit 33.8 % Mean Corpuscular Volume 89.8 FL Mean Corpuscular Hemoglobin 30.5 PG Mean Corpuscular Hemoglobin 33.9 % Concent Red Cell Distribution Width 16.3 % Platelet Count 165 TH/MM3 Mean Platelet Volume 10.4 FL Neutrophils (%) (Auto) 77.1 % Lymphocytes (%) (Auto) 6.5 % Monocytes (%) (Auto) 12.0 % Eosinophils (%) (Auto) 3.8 % Basophils (%) (Auto) 0.6 % Neutrophils # (Auto) 8.5 TH/MM3 Lymphocytes # (Auto) 0.7 TH/MM3 Monocytes # (Auto) 1.3 TH/MM3 Eosinophils # (Auto) 0.4 TH/MM3 Basophils # (Auto) 0.1 TH/MM3 CBC Comment DIFF FINAL Differential Comment Sodium Level 142 MEQ/L Potassium Level 3.8 MEQ/L Chloride Level 102 MEQ/L Carbon Dioxide Level 31.6 MEQ/L Anion Gap 8 MEQ/L Blood Urea Nitrogen 31 MG/DL Creatinine 1.40 MG/DL Estimat Glomerular Filtration 48 ML/MIN Rate Random Glucose 147 MG/DL Calcium Level 9.7 MG/DL Imaging Last Impressions Chest X-Ray 06/25/16 0000 Signed Impressions: Service Date/Time: June 17:13 - CONCLUSION: No evidence of pneumothorax Ludin Florentino MD Assessment and Plan Problem List: (1) Wide QRS ventricular tachycardia Assessment and Plan: Continue 400 mg PO bid. Continued IV Lasix diuresis. Continue Aspirin, Coreg. Dr. Marquez will be back in AM (2) Congestive heart failure (CHF) (3) CAD (coronary artery disease) (4) Hypertension (5) History of aortic valve replacement Problem Qualifiers (1) Congestive heart failure (CHF): Qualified Code: I50.21 - Acute systolic congestive heart failure (2) CAD (coronary artery disease): Qualified Code: I25.10 - Coronary artery disease involving [place] coronary artery of [place] heart without angina pectoris (3) Hypertension: Qualified Code: I10 - Essential hypertension Ron Pritchard MD Jun 28, 2016 10:11
--- NOTE | 2016-06-28 15:23 | HHI.PR ---
Subjective Subjective Remarks Febrile rhythm now SR, and sometimes sinus bradycardia. Heart rate in the 50s to 60s, low noted is 50 Awake at intervals, hard of hearing monitor PO intake, appetite and by mouth intake poor Hemoglobin stable at 11.5 (Janet Rascon) Review of Systems Constitutional Constitutional: Fatigue, Weakness Constitutional Remarks 10 point ROS done, positives noted, other systems neg. mild SOB at rest. (Janet Rascon) Ears and Nose Ears and Nose: Congestion (few rhonchi) (Janet Rascon) Pulmonary Respiratory: Shortness of Breath (mild ) (Janet Rascon) Cardiology CV Remarks sr, regular now, and sometimes bradycardia heart rate is low as 50. Permanent pacemaker (Janet Rascon) Musculoskeletal MS: Weakness, Stiffness, Swelling (trace edema) (Janet Rascon) Psychiatric Psychiatric: Normal Mood, Agitation (at times) (Janet Rascon) Vitals/Results Intake & Output 06/27/16 06/27/16 06/28/16 15:00 23:00 07:00 Intake Total 424 ml 106 ml 520 ml Output Total 800 ml 650 ml Balance -376 ml 106 ml -130 ml Intake Oral 360 ml IV Total 424 ml 106 ml 160 ml Output Urine Total 800 ml 650 ml Emesis 0 ml # Bowel Movements 1 0 Vital Signs Vital Signs Date Time Temp Pulse Resp B/P Pulse Ox O2 Delivery O2 Flow Rate FiO2 06/28/16 15:05 97.8 52 20 118/62 99 06/28/16 11:00 51 06/28/16 11:00 97.6 50 20 102/56 98 06/28/16 10:00 64 06/28/16 09:00 58 06/28/16 08:00 68 06/28/16 07:30 98 Nasal Cannula 2.00 06/28/16 07:30 98.0 72 20 159/82 98 06/28/16 07:00 53 06/28/16 06:00 60 06/28/16 05:00 56 20 138/76 98 06/28/16 05:00 56 06/28/16 04:00 55 20 160/79 92 06/28/16 04:00 56 06/28/16 03:00 55 20 134/64 96 06/28/16 03:00 60 06/28/16 02:00 56 20 124/65 92 06/28/16 02:00 56 06/28/16 01:00 55 20 128/67 93 06/28/16 01:00 58 06/28/16 00:00 52 06/28/16 00:00 55 20 122/71 92 06/27/16 23:38 97.7 60 20 119/70 97 06/27/16 23:00 56 06/27/16 22:00 52 20 126/71 94 06/27/16 22:00 56 06/27/16 21:35 20 06/27/16 21:00 54 06/27/16 21:00 55 20 122/72 96 06/27/16 20:02 Nasal Cannula 1.00 06/27/16 20:00 98.1 50 20 124/75 100 06/27/16 20:00 54 06/27/16 20:00 100 Nasal Cannula 2.00 06/27/16 19:47 55 20 124/75 97 06/27/16 19:00 61 06/27/16 18:00 98.3 53 18 123/69 98 06/27/16 18:00 59 06/27/16 16:00 97.6 52 21 107/56 100 06/27/16 16:00 52 06/27/16 15:30 97 Nasal Cannula 1.00 06/27/16 15:25 97 Room Air (Janet Rascon) CBC/BMP: 06/28/16 0450 06/28/16 0450 Lab Results Laboratory Tests Test 06/28/16 04:50 White Blood Count 11.0 TH/MM3 Red Blood Count 3.76 MIL/MM3 Hemoglobin 11.5 GM/DL Hematocrit 33.8 % Mean Corpuscular Volume 89.8 FL Mean Corpuscular Hemoglobin 30.5 PG Mean Corpuscular Hemoglobin 33.9 % Concent Red Cell Distribution Width 16.3 % Platelet Count 165 TH/MM3 Mean Platelet Volume 10.4 FL Neutrophils (%) (Auto) 77.1 % Lymphocytes (%) (Auto) 6.5 % Monocytes (%) (Auto) 12.0 % Eosinophils (%) (Auto) 3.8 % Basophils (%) (Auto) 0.6 % Neutrophils # (Auto) 8.5 TH/MM3 Lymphocytes # (Auto) 0.7 TH/MM3 Monocytes # (Auto) 1.3 TH/MM3 Eosinophils # (Auto) 0.4 TH/MM3 Basophils # (Auto) 0.1 TH/MM3 CBC Comment DIFF FINAL Differential Comment Sodium Level 142 MEQ/L Potassium Level 3.8 MEQ/L Chloride Level 102 MEQ/L Carbon Dioxide Level 31.6 MEQ/L Anion Gap 8 MEQ/L Blood Urea Nitrogen 31 MG/DL Creatinine 1.40 MG/DL Estimat Glomerular Filtration 48 ML/MIN Rate Random Glucose 147 MG/DL Calcium Level 9.7 MG/DL Imaging Remarks Last Impressions Chest X-Ray 06/25/16 0000 Signed Impressions: Service Date/Time: June 17:13 - CONCLUSION: No evidence of pneumothorax Ludin Florentino MD Current Medications Active Medications Amiodarone HCl (Cordarone) 400 mg NOW ONCE PO Last administered on 06/27/16 17: 05; Admin Dose 400 MG; Start 06/27/16 at 17:00; Stop 06/27/16 at 17:01; Status DC Amiodarone HCl (Cordarone) 400 mg Q12HR PO Last administered on 06/28/16 08:55; Admin Dose 400 MG; Start 06/28/16 at 09:00 Clotrimazole (Lotrimin 1% Top Soln) APPLY 3 DROPS TO EACH EAR BID .XX Last administered on 06/28/16 09:00; Admin Dose 1 APPLIC; Start 06/27/16 at 21:00 ( Janet Rascon) Physical Exam General General Appearance: Well Developed, No Acute Distress, Malnourished (Janet RasconP) Eyes Eye Exam: Pupils Equal, Pupils Reactive (Janet RasconP) Ears & Nose Ears & Nose Exam: Nasal Mucosa [place] (Janet RasconP) Throat Throat Exam: Oral Mucosa [place] & Moist (Janet RasconP) Neck Neck Exam: Neck Supple, Trachea Midline (Janet Rascon) Pulmonary Resp Exam: Crackles, Rhonchi, Diminished Breath Sounds, Poor Inspiratory Effort Resp Remarks ? weak swallow, aspiration? ([place],Janet M. GUIDANCE ADVISER) Cardiology CV Exam: Irregular, Arrhythmia, Pacemaker (Abiodun,Janet M. GUIDANCE ADVISER) Gastrointestinal/Abdomen GI Exam: Soft, Non-Tender, Bowel Sounds Present, Non-Distended ([place] M. GUIDANCE ADVISER) Musculoskeletal MS Exam: Joints Intact (Abiodun,Janet M. GUIDANCE ADVISER) Integumentary Skin Exam: Warm, Dry ([place],Janet M. GUIDANCE ADVISER) Extremeties Extremities Exam: No Edema, Pedal Pulses Palpable (AbiodunJanet M. GUIDANCE ADVISER) Neurologic Neuro Exam: Awake, Moving All Extremities, No Focal Deficits (Abiodun,Janet M. GUIDANCE ADVISER) VTE Prophylaxis VTE Prophylaxis Device: SCDs VTE Prophylaxis Meds: Heparin ([place],Janet M. GUIDANCE ADVISER) PUD Prophylasis PUD Prophylaxis: Protonix ([place],Janet M. GUIDANCE ADVISER) Assessment/Plan Problem List: (1) Respiratory failure (2) Congestive heart failure (CHF) (3) NSVT (nonsustained ventricular tachycardia) (4) Hypertension (5) Valvular heart disease (6) Hx recent TAVR (7) CAD (coronary artery disease) (8) [id number] kidney injury Assessment/Plan Vital signs reviewed, patient is afebrile, bradycardia noted at times low is 50 , blood pressure normal range Physical therapy eval and treat continues. Respiratory failure sec. fluid overload. Extubated 06/26, O2 on -continue oxygen, duonebs Dysphasia, swallow weak, seen per ST, patient eating very little and drinking very little, still has some coarse rhonchi. . Food pureed. Acute on chronic congestive heart failure, hx TAVR, cardiomyopathy. 2-D echo EF 15-20% Cardiology input appreciated, patient now on by mouth amiodarone and Coreg aspirin, will continue IV diuresis, permanent pacemaker in place, sling on left shoulder, mild bruising noted at pacemaker site, dressing clean dry and intact, reviewed pacemaker parameters heart rate set on 50. Patient's rate does drop in the 50s and 60s Monitor intake and output Possible underlying pneumonia, possible aspiration Continue with antibiotics A sputum culture pending Acute on chronic renal injury, labs reviewed, renal function essentially unchanged. This is probably his baseline Monitor labs as needed Hypertension, controlled Coreg, amiodarone Heparin for DVT prophylaxis Protonix for GI prophylaxis Patient's condition guarded, discharge planning will probably involved SNF, rehab D/W RN D/W Dr. Reed, patient seen on her behalf (Janet Rascon) (Janet Rascon) Assessment/Plan patient seen and examined more confused today monito heart rate continue current care discussed with patient discussed with nursing staff discussed with Janet MADSEN no family at bed side (Yamini Reed MD) Problem Qualifiers (1) Respiratory failure: (2) Congestive heart failure (CHF): Qualified Code: I50.21 - Acute systolic congestive heart failure (3) Hypertension: Qualified Code: I10 - Essential hypertension (4) CAD (coronary artery disease): Qualified Code: I25.10 - Coronary artery disease involving [place] coronary artery of [place] heart without angina pectoris Janet Rascon Jun 28, 2016 15:23 Yamini Reed MD Jun 28, 2016 19:53
--- NOTE | 2016-06-28 20:03 | MP ---
cc: MELISSA CALDERON GLENN H. M.D. DATE OF SURGERY: 06/28/2016. PROCEDURE: Dual-chamber permanent pacemaker implantation via the left subclavian vein. INDICATIONS: Tachycardia - bradycardia syndrome. OPERATIVE NOTE: The patient was brought to the operating suite in a fasting state after having signed informed consent. The left upper chest was prepped and draped as per policy and anesthetized with 1% lidocaine. Central venous access was obtained twice via the left subclavian vein after administration of 5 mL through a left arm peripheral IV. A transverse incision was made inferior to the left clavicle and using blunt dissection a subcutaneous pocket was formed down to the pectoralis fascia. Over the more lateral guidewire, a 6-Luxembourger sheath was placed and through this sheath a ventricular active fixation lead was introduced. We were unable to advance the lead past a turn in the superior vena cava so a long 7-Luxembourger sheath was placed and through this sheath the ventricular lead was introduced and its tip positioned in the right ventricular apex where good current of injury, stimulation threshold (0.6 volts) and sensitivity (12.3 mV) were demonstrated. This lead was secured into place using 2-0 silk ties down to the pectoralis fascia. Over the remaining guidewire, a 6-Luxembourger sheath was placed and through this sheath an atrial active fixation lead was introduced and advanced easily to the right atrial appendage where good current of injury, stimulation threshold (0.6 volts) and sensitivity (6.3 mV) were demonstrated. This lead was secured into place using 2-0 silk ties down to the pectoralis fascia. The leads were then connected to the pacemaker generator which is a [employer] Eluna device. The leads and the generator were replaced back into the subcutaneous pocket which was closed using 3-0 Vicryl interrupted stitches in two layers to close the subcutaneous tissue and then 4-0 Monocryl running stitch to close the subcuticular tissue. Overlapping Steri-Strips and a dressing were applied. There were no apparent immediate complications. A portable chest x-ray is pending at the time of this dictation. CONCLUSIONS: Successful dual-chamber permanent pacemaker implantation via the left subclavian vein using a Biotronik MRI-compatible Eluna pacemaker generator. MD DANE Asencio/JCNguyen /4:35 PM /8:01 PM MTDD
[2016-06-28] MEDS: MUPIROCIN 2% OINT 1 APPLIC/GM SYR EACH NARE SCH (20:42)
[2016-06-28] MEDS: CHLORHEXIDINE GLUCONATE 2 % 1 PACK (2 CLOTHS) TOPICAL SCH (20:50)
[2016-06-28] MEDS: POVIDONE IODINE 5% (ANTISEPSIS KIT) 4 APPLICATIONS TOPICAL SCH (20:50)
[2016-06-29] VITALS (25 sets, daily range): BP systolic 89–152; BP diastolic 48–80; PULSE 46–74; RESP 16; TEMP 98–99.4; O2SAT 95–98
[2016-06-29] MEDS: SODIUM CHLOR 0.9% 1000 ML INJ 1,000 ML IV SCH (07:10)
[2016-06-29] MEDS: CHLORHEXIDINE 0.12% (ORAL KIT) 15 ML CUP MT SCH ×2 (07:11→20:00)
--- NOTE | 2016-06-29 08:50 | HHI.PR ---
Subjective Subjective Remarks Febrile, low-grade, 99 rhythm now SR, 60s [place], lethargy Appetite and by mouth intake poor (Janet Rascon) Review of Systems Constitutional Constitutional: Fatigue, Weakness Constitutional Remarks 10 point ROS done, positives noted, other systems neg. mild SOB at rest. (Janet Rascon) Ears and Nose Ears and Nose: Congestion (few rhonchi) (Janet Rascon) Pulmonary Respiratory: Shortness of Breath (mild ) (Janet Rascon) Cardiology CV Remarks sr, regular now, and sometimes bradycardia heart rate is low as 50. Permanent pacemaker (Janet Rascon) Musculoskeletal MS: Weakness, Stiffness, Swelling (trace edema) (Janet Rascon) Psychiatric Psychiatric: Normal Mood, Agitation (at times) (Janet Rascon) Vitals/Results Intake & Output 06/28/16 06/28/16 06/29/16 15:00 23:00 07:00 Intake Total 1480 ml 1765 ml Output Total 300 ml 950 ml Balance 1180 ml 815 ml Intake Oral 780 ml 360 ml IV Total 700 ml 1405 ml Output Urine Total 300 ml 950 ml # Bowel Movements 1 Vital Signs Vital Signs Date Time Temp Pulse Resp B/P Pulse Ox O2 Delivery O2 Flow Rate FiO2 06/29/16 06:00 66 06/29/16 05:00 62 06/29/16 04:00 66 06/29/16 03:00 66 06/29/16 03:00 99.0 64 16 121/52 97 06/29/16 02:00 62 06/29/16 01:00 62 06/29/16 00:00 60 06/28/16 23:00 94 Room Air 06/28/16 23:00 98.8 61 14 121/63 94 06/28/16 23:00 58 06/28/16 22:00 56 06/28/16 21:00 56 06/28/16 20:00 54 06/28/16 19:00 98.8 56 14 121/62 99 06/28/16 19:00 98 Room Air 06/28/16 19:00 62 06/28/16 18:00 59 06/28/16 17:02 98 Nasal Cannula 2.00 06/28/16 17:00 58 06/28/16 16:00 50 06/28/16 15:05 97.8 52 20 118/62 99 06/28/16 15:00 49 06/28/16 14:00 54 06/28/16 13:00 52 06/28/16 11:00 51 06/28/16 11:00 97.6 50 20 102/56 98 06/28/16 10:00 64 06/28/16 09:00 58 (Janet Rascon) CBC/BMP: 06/28/16 0450 06/28/16 0450 Imaging Remarks Last Impressions Chest X-Ray 06/25/16 0000 Signed Impressions: Service Date/Time: June 17:13 - CONCLUSION: No evidence of pneumothorax Ludin Florentino MD Current Medications Active Medications Amiodarone HCl (Cordarone) 400 mg Q12HR PO Last administered on 06/28/16t 20:41; Admin Dose 400 MG; Start 06/28/16 at 09:00 (Janet Rascon) Physical Exam General General Appearance: Well Developed, No Acute Distress, Malnourished (Janet Rascon) Eyes Eye Exam: Pupils Equal, Pupils Reactive (Janet Rascon) Ears & Nose Ears & Nose Exam: Nasal Mucosa [place] (Janet Rascon) Throat Throat Exam: Oral Mucosa [place] & Moist (Janet Rascon) Neck Neck Exam: Neck Supple, Trachea Midline (Janet Rascon) Pulmonary Resp Exam: Crackles, Rhonchi, Diminished Breath Sounds, Poor Inspiratory Effort Resp Remarks ? weak swallow, aspiration? (Janet Rascon) Cardiology CV Exam: Irregular, Arrhythmia, Pacemaker CV Remarks Recent permanent pacemaker, left shoulder chest area incision clean dry and intact (Janet RasconP) Gastrointestinal/Abdomen GI Exam: Soft, Non-Tender, Bowel Sounds Present, Non-Distended (Janet Rascon) Musculoskeletal MS Exam: Joints Intact (Janet Rascon) Integumentary Skin Exam: Warm, Dry (Janet Rascon) Extremeties Extremities Exam: No Edema, Pedal Pulses Palpable (Janet Rascon) Neurologic Neuro Exam: Awake, Moving All Extremities, No Focal Deficits (Janet RasconP) VTE Prophylaxis VTE Prophylaxis Device: SCDs VTE Prophylaxis Meds: Heparin (AbiodunJanet easton) PUD Prophylasis PUD Prophylaxis: Protonix (Janet Rascon) Assessment/Plan Problem List: (1) Respiratory failure (2) Congestive heart failure (CHF) (3) NSVT (nonsustained ventricular tachycardia) (4) Hypertension (5) Valvular heart disease (6) Hx recent TAVR (7) CAD (coronary artery disease) (8) Jzjmg-bw-qlrzkeu kidney injury Assessment/Plan Vital signs reviewed, temp 99, heart rate in the 60s today Labs reviewed, Physical therapy eval and treat continues. Dysphasia, swallow weak, seen per ST, patient eating very little and drinking very little, still has some coarse rhonchi. . Food pureed. Patient is lethargic, opens eyes to loud voice, but does not follow simple commands this a.m. debility continues, condition is guarded Acute on chronic congestive heart failure, hx TAVR, cardiomyopathy. 2-D echo EF 15-20% Cardiology input appreciated, patient now on by mouth amiodarone and Coreg aspirin, will continue IV diuresis, permanent pacemaker in place, sling on left shoulder, mild bruising noted at pacemaker site, dressing clean dry and intact, reviewed pacemaker parameters heart rate set on 50. Patient's rate does drop in the 50s and 60s Monitor intake and output, SCDs on. Possible underlying pneumonia, possible aspiration Continue with antibiotics A sputum culture pending Continue with O2 and duo nebs Acute on chronic renal injury, labs reviewed, renal function essentially unchanged. This is probably his baseline Monitor labs as needed Hypertension, controlled Coreg, amiodarone Heparin for DVT prophylaxis Protonix for GI prophylaxis Patient's condition guarded, discharge planning will probably involved SNF, rehab. Concerned over her overall prognosis, we'll discuss options with Dr. reed and . Palliative care consult may be an option if is open to speak to them. D/W RN (Janet Rascon) Assessment/Plan Patient seen and examined hard of hearing opens eyes and follows commands, does appear lethargic ? transition to po diuretics per Cardiology incentive spirometer change antibiotics to PO PT eval: needs rehab at discharge, when cleared by cardiology discussed with nursing staff discussed with Janet MADSEN no family at bedside (Yamini Reed MD) Problem Qualifiers (1) Respiratory failure: (2) Congestive heart failure (CHF): Qualified Code: I50.21 - Acute systolic congestive heart failure (3) Hypertension: Qualified Code: I10 - Essential hypertension (4) CAD (coronary artery disease): Qualified Code: I25.10 - Coronary artery disease involving [place] coronary artery of [place] heart without angina pectoris Janet Rascon Jun 29, 2016 08:50 Yamini Reed MD Jun 29, 2016 09:50
[2016-06-29] MEDS: CLOTRIMAZOLE 1% SOLN 30 ML BTL SCH ×4 (09:00→21:00)
[2016-06-29] MEDS: GABAPENTIN 300 MG CAP PO SCH (09:09)
[2016-06-29] MEDS: CARVEDILOL 3.125 MG TAB PO SCH ×2 (09:09→21:16)
[2016-06-29] MEDS: CHOLECALCIFEROL (VIT D3) 5000 UNIT CAP PO SCH (09:09)
[2016-06-29] MEDS: ALLOPURINOL 100 MG TAB PO SCH (09:09)
[2016-06-29] MEDS: FINASTERIDE 5 MG TAB PO SCH (09:09)
[2016-06-29] MEDS: TAMSULOSIN HCL 0.4 MG CAP PO SCH (09:09)
[2016-06-29] MEDS: FUROSEMIDE 40 MG/4 ML VIAL IV PUSH SCH ×2 (09:09→17:11)
[2016-06-29] MEDS: SENNOSIDES 8.6 MG TAB PO SCH (09:09)
[2016-06-29] MEDS: ASPIRIN EC 81 MG TABEC PO SCH (09:10)
[2016-06-29] MEDS: AMIODARONE 200 MG TAB PO SCH ×2 (09:10→21:16)
[2016-06-29] MEDS: SODIUM CHLORIDE 0.9% FLUSH 10 ML FLUSH IV FLUSH SCH ×2 (09:10→21:17)
[2016-06-29] MEDS: PANTOPRAZOLE SOD 40 MG DELAYED RELEASE TAB PO SCH (09:10)
--- NOTE | 2016-06-29 11:23 | PD.CARD.PN ---
Subjective Subjective Remarks Denies pain, dyspnea, dizziness, palpitations, nausea, abdominal pain. Objective Medications Item Value Date Time Amiodarone HCl 400 mg 06/28/16899 (Cordarone) Q12HR/PO 06/29/16 0910 Carvedilol 3.125 mg 06/26/16 0900 (Coreg) Q12HR/PO 06/29/16 0909 Aspirin 81 mg 06/25/16899 (Ecotrin Ec) DAILY/PO 06/29/16 0910 Vital Signs / I&O Vital Signs Date Time Temp Pulse Resp B/P Pulse Ox O2 Delivery O2 Flow Rate FiO2 06/29/16 08:00 99.4 71 16 121/58 95 06/29/16 08:00 63 06/29/16 06:00 66 06/29/16 05:00 62 06/29/16 04:00 66 06/29/16 03:00 66 06/29/16 03:00 99.0 64 16 121/52 97 06/29/16 02:00 62 06/29/16 01:00 62 06/29/16 00:00 60 06/28/16 23:00 94 Room Air 06/28/16 23:00 98.8 61 14 121/63 94 06/28/16 23:00 58 06/28/16 22:00 56 06/28/16 21:00 56 06/28/16 20:00 54 06/28/16 19:00 98.8 56 14 121/62 99 06/28/16 19:00 98 Room Air 06/28/16 19:00 62 06/28/16 18:00 59 06/28/16 17:02 98 Nasal Cannula 2.00 06/28/16 17:00 58 06/28/16 16:00 50 06/28/16 15:05 97.8 52 20 118/62 99 06/28/16 15:00 49 06/28/16 14:00 54 06/28/16 13:00 52 I/O 06/28/16 06/28/16 06/28/16 06/29/16 06/29/16 06/29/16 07:00 15:00 23:00 07:00 15:00 23:00 Intake Total 520 ml 1480 ml 1765 ml Output Total 650 ml 300 ml 950 ml Balance -130 ml 1180 ml 815 ml Intake Oral 360 ml 780 ml 360 ml IV Total 160 ml 700 ml 1405 ml Output Urine Total 650 ml 300 ml 950 ml Emesis 0 ml # Bowel Movements 0 1 Physical Exam GENERAL: Well developed, well nourished. No acute distress. HEENT: Jugular venous pressure 10 cm water. CHEST: Clear lung cote anteriorly. Pacer site clean, dry, intact, no hematoma. CARDIAC: Regular rate and rhythm without S3, S4, murmur. ABDOMEN: Soft, nontender, no hepatosplenomegaly. Bowel sounds present. EXTREMITIES: No clubbing, cyanosis, or edema. Assessment and Plan Problem List: (1) Wide QRS ventricular tachycardia Assessment and Plan: Overall stable. Occasional ventricular triplets past 48 hours, no sustained VT. Tolerating Amiodarone so far. To place LifeVest (2) Congestive heart failure (CHF) Assessment and Plan: Improved with good diuresis over the weekend. EF 20% by echo. Renal indices stable. Continue beta july. No CHARLINE-I with his renal insufficiency. 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 EF 50-55% on echo September 2015 at [facility]. They wish aggressive therapy. Will place LifeVest. If EF still < 35% in 3 months rec, change pacer system to ICD. (3) CAD (coronary artery disease) Assessment and Plan: Stable. No angina. Continue daily aspirin, beta july. (4) Hypertension Assessment and Plan: Stable. Normotensive. (5) History of aortic valve replacement Code Status full code Discussed Condition With patient and , at great length Problem Qualifiers (1) Congestive heart failure (CHF): Qualified Code: I50.21 - Acute systolic congestive heart failure (2) CAD (coronary artery disease): Qualified Code: I25.10 - Coronary artery disease involving [place] coronary artery of [place] heart without angina pectoris (3) Hypertension: Qualified Code: I10 - Essential hypertension Devyn Marquez MD Jun 29, 2016 11:23
[2016-06-29] MEDS: CEPHALEXIN MONOHYDRATE 250 MG CAP PO SCH ×2 (14:13→21:16)
[2016-06-29] MEDS: POVIDONE IODINE 5% (ANTISEPSIS KIT) 4 APPLICATIONS TOPICAL SCH (21:00)
[2016-06-29] MEDS: CHLORHEXIDINE GLUCONATE 2 % 1 PACK (2 CLOTHS) TOPICAL SCH (21:00)
[2016-06-29] MEDS: MUPIROCIN 2% OINT 1 APPLIC/GM SYR EACH NARE SCH (21:17)
[2016-06-30] VITALS (23 sets, daily range): BP systolic 104–133; BP diastolic 51–67; PULSE 49–61; RESP 16–18; TEMP 96.7–98.7; O2SAT 92–99
[2016-06-30] MEDS: CEPHALEXIN MONOHYDRATE 250 MG CAP PO SCH ×3 (06:10→21:28)
[2016-06-30 06:53] LABS: AUTOMATED NEUTROPHIL # 7.4 TH/MM3 (1.8-7.7); BASOPHIL # 0.1 TH/MM3 (0-0.2); BASOPHIL % 0.6 % (0.0-2.0); EOSINOPHIL # 0.5 TH/MM3 (0-0.4); EOSINOPHIL % 4.9 % (0.0-4.0); HEMATOCRIT 34.4 % (39.0-51.0); HEMO FLAGS DIFF FINAL; LYMPH % 8.7 % (9.0-44.0); LYMPHOCYTE # 0.9 TH/MM3 (1.0-4.8); MEAN CORPUSCULAR HEMOGLOBIN 29.4 PG (27.0-34.0); MEAN CORPUSCULAR HGB CONC 32.3 % (32.0-36.0); NEUT % 72.8 % (16.0-70.0); PLATELET COUNT 158 TH/MM3 (150-450); RED BLOOD COUNT 3.78 MIL/MM3 (4.50-5.90); RED CELL DISTRIBUTION WIDTH 16.1 % (11.6-17.2); WHITE BLOOD COUNT 10.1 TH/MM3 (4.0-11.0)
[2016-06-30 07:09] LABS: BICARBONATE 32.9 MEQ/L (21.0-32.0); POTASSIUM 3.5 MEQ/L (3.5-5.1)
[2016-06-30] MEDS: CHLORHEXIDINE 0.12% (ORAL KIT) 15 ML CUP MT SCH ×2 (08:00→20:00)
[2016-06-30] MEDS: ASPIRIN EC 81 MG TABEC PO SCH (08:40)
[2016-06-30] MEDS: GABAPENTIN 300 MG CAP PO SCH (08:40)
[2016-06-30] MEDS: ALLOPURINOL 100 MG TAB PO SCH (08:40)
[2016-06-30] MEDS: CARVEDILOL 3.125 MG TAB PO SCH ×2 (08:40→21:28)
[2016-06-30] MEDS: PANTOPRAZOLE SOD 40 MG DELAYED RELEASE TAB PO SCH (08:40)
[2016-06-30] MEDS: TAMSULOSIN HCL 0.4 MG CAP PO SCH (08:40)
[2016-06-30] MEDS: SENNOSIDES 8.6 MG TAB PO SCH (08:40)
[2016-06-30] MEDS: AMIODARONE 200 MG TAB PO SCH (08:40)
[2016-06-30] MEDS: CHOLECALCIFEROL (VIT D3) 5000 UNIT CAP PO SCH (08:41)
[2016-06-30] MEDS: FUROSEMIDE 40 MG/4 ML VIAL IV PUSH SCH (08:41)
[2016-06-30] MEDS: FINASTERIDE 5 MG TAB PO SCH (08:41)
[2016-06-30] MEDS: SODIUM CHLOR 0.9% 1000 ML INJ 1,000 ML IV SCH (08:42)
[2016-06-30] MEDS: CLOTRIMAZOLE 1% SOLN 30 ML BTL SCH ×4 (08:42→21:31)
[2016-06-30] MEDS: SODIUM CHLORIDE 0.9% FLUSH 10 ML FLUSH IV FLUSH SCH ×2 (08:43→21:29)
[2016-06-30] MEDS ORDERED: CARV3.125 PO (10:39)
[2016-06-30] MEDS ORDERED: AMIO200T PO (10:39)
[2016-06-30] MEDS ORDERED: FURO1TAB60 PO (10:39)
[2016-06-30] MEDS ORDERED: CEPH250C PO (10:39)
--- NOTE | 2016-06-30 10:55 | PD.CARD.PN ---
Subjective Subjective Remarks Denies pain, dyspnea, dizziness, palpitations, PND. Slept well. Objective Medications Item Value Date Time Furosemide 40 mg 06/30/16 1800 (Lasix) BID@,18/PO Amiodarone HCl 400 mg 06/28/16 0900 (Cordarone) Q12HR/PO 06/30/16 0840 Carvedilol 3.125 mg 06/26/16 0900 (Coreg) Q12HR/PO 06/30/16 0840 Aspirin 81 mg 06/25/16 0900 (Ecotrin Ec) DAILY/PO 06/30/16 0840 Vital Signs / I&O Vital Signs Date Time Temp Pulse Resp B/P Pulse Ox O2 Delivery O2 Flow Rate FiO2 06/30/16 08:00 52 06/30/16 08:00 97.6 52 16 124/67 96 06/30/16 07:00 55 06/30/16 06:00 54 06/30/16 05:00 58 06/30/16 04:00 98.7 58 16 124/58 96 06/30/16 04:00 55 06/30/16 03:00 56 06/30/16 02:00 58 06/30/16 01:00 60 06/30/16 00:00 56 06/30/16 00:00 98.1 54 16 129/60 96 06/29/16 23:00 58 06/29/16 22:00 74 06/29/16 21:00 60 06/29/16 20:00 58 06/29/16 19:51 98.0 61 16 120/58 97 06/29/16 19:00 62 06/29/16 18:00 66 06/29/16 17:00 60 06/29/16 16:00 99.4 54 16 152/80 95 06/29/16 16:00 54 06/29/16 15:00 46 06/29/16 14:00 56 06/29/16 14:00 127/68 06/29/16 13:00 56 06/29/16 12:00 99.2 53 16 89/48 98 06/29/16 12:00 58 06/29/16 11:00 58 I/O 4/10/17 4/10/17 4/10/17 4/11/17 4/11/17 4/11/17 07:00 15:00 23:00 07:00 15:00 23:00 Intake Total 1765 ml 440 ml Output Total 950 ml 550 ml 900 ml Balance 815 ml -110 ml -900 ml Intake Oral 360 ml 440 ml IV Total 1405 ml Output Urine Total 950 ml 550 ml 900 ml # Bowel Movements 0 Physical Exam GENERAL: Well developed, well nourished. No acute distress. HEENT: Jugular venous pressure normal.. CHEST: Clear lung cote anteriorly. Pacer site clean, dry, intact, no hematoma. CARDIAC: Regular rate and rhythm without S3, S4, murmur. ABDOMEN: Soft, nontender, no hepatosplenomegaly. Bowel sounds present. EXTREMITIES: No clubbing, cyanosis, or edema. Laboratory Laboratory Tests Test 06/30/16 05:22 White Blood Count 10.1 TH/MM3 Red Blood Count 3.78 MIL/MM3 Hemoglobin 11.1 GM/DL Hematocrit 34.4 % Mean Corpuscular Volume 91.0 FL Mean Corpuscular Hemoglobin 29.4 PG Mean Corpuscular Hemoglobin 32.3 % Concent Red Cell Distribution Width 16.1 % Platelet Count 158 TH/MM3 Mean Platelet Volume 10.4 FL Neutrophils (%) (Auto) 72.8 % Lymphocytes (%) (Auto) 8.7 % Monocytes (%) (Auto) 13.0 % Eosinophils (%) (Auto) 4.9 % Basophils (%) (Auto) 0.6 % Neutrophils # (Auto) 7.4 TH/MM3 Lymphocytes # (Auto) 0.9 TH/MM3 Monocytes # (Auto) 1.3 TH/MM3 Eosinophils # (Auto) 0.5 TH/MM3 Basophils # (Auto) 0.1 TH/MM3 CBC Comment DIFF FINAL Differential Comment Sodium Level 145 MEQ/L Potassium Level 3.5 MEQ/L Chloride Level 104 MEQ/L Carbon Dioxide Level 32.9 MEQ/L Anion Gap 8 MEQ/L Blood Urea Nitrogen 34 MG/DL Creatinine 1.54 MG/DL Estimat Glomerular Filtration 43 ML/MIN Rate Random Glucose 128 MG/DL Calcium Level 9.8 MG/DL Assessment and Plan Problem List: (1) Wide QRS ventricular tachycardia Assessment and Plan: Overall stable. Much less ventricular ectopy past 24 hours, now with rare ventricular couplets. Tolerating Amiodarone so far. To place LifeVest. Reduce Amiodarone to 400 mg qd. (2) Congestive heart failure (CHF) Assessment and Plan: Improved with good diuresis over the weekend. EF 20% by echo. Renal indices stable. Continue beta july. No CHARLINE-I with his renal insufficiency. 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 EF 50-55% on echo September 2015 at [facility]. They wish aggressive therapy. Will place LifeVest. If EF still < 35% in 3 months rec, change pacer system to ICD. (3) CAD (coronary artery disease) Assessment and Plan: Stable. No angina. Continue daily aspirin, beta july. (4) Hypertension Assessment and Plan: Stable. Normotensive. (5) History of aortic valve replacement Code Status full code Discussed Condition With patient Problem Qualifiers (1) Congestive heart failure (CHF): Qualified Code: I50.21 - Acute systolic congestive heart failure (2) CAD (coronary artery disease): Qualified Code: I25.10 - Coronary artery disease involving [place] coronary artery of [place] heart without angina pectoris (3) Hypertension: Qualified Code: I10 - Essential hypertension Devyn Marquez MD Jun 30, 2016 10:55
--- NOTE | 2016-06-30 11:02 | HHI.PR ---
Subjective Interval History awake alert and oriented no complaints CHITIMACHA at bed side no fever worked with PT earlier today Review of Systems Constitutional Constitutional: Fatigue, Weakness Ears and Nose Ears and Nose: Congestion (few rhonchi) Pulmonary Respiratory: Shortness of Breath (mild ) Musculoskeletal MS: Weakness, Stiffness, Swelling (trace edema) Psychiatric Psychiatric: Normal Mood, Agitation (at times) Vitals/Results Intake & Output 06/29/16 06/29/16 06/30/16 15:00 23:00 07:00 Intake Total 440 ml Output Total 550 ml 900 ml Balance -110 ml -900 ml Intake Oral 440 ml Output Urine Total 550 ml 900 ml # Bowel Movements 0 Vital Signs Vital Signs Date Time Temp Pulse Resp B/P Pulse Ox O2 Delivery O2 Flow Rate FiO2 06/30/16 08:00 52 06/30/16 08:00 97.6 52 16 124/67 96 06/30/16 07:00 55 06/30/16 06:00 54 06/30/16 05:00 58 06/30/16 04:00 98.7 58 16 124/58 96 06/30/16 04:00 55 06/30/16 03:00 56 06/30/16 02:00 58 06/30/16 01:00 60 06/30/16 00:00 56 06/30/16 00:00 98.1 54 16 129/60 96 06/29/16 23:00 58 06/29/16 22:00 74 06/29/16 21:00 60 06/29/16 20:00 58 06/29/16 19:51 98.0 61 16 120/58 97 06/29/16 19:00 62 06/29/16 18:00 66 06/29/16 17:00 60 06/29/16 16:00 99.4 54 16 152/80 95 06/29/16 16:00 54 06/29/16 15:00 46 06/29/16 14:00 56 06/29/16 14:00 127/68 06/29/16 13:00 56 06/29/16 12:00 99.2 53 16 89/48 98 06/29/16 12:00 58 CBC/BMP: 06/30/16 0522 06/30/16 0522 Lab Results Laboratory Tests Test 06/30/16 05:22 White Blood Count 10.1 TH/MM3 Red Blood Count 3.78 MIL/MM3 Hemoglobin 11.1 GM/DL Hematocrit 34.4 % Mean Corpuscular Volume 91.0 FL Mean Corpuscular Hemoglobin 29.4 PG Mean Corpuscular Hemoglobin 32.3 % Concent Red Cell Distribution Width 16.1 % Platelet Count 158 TH/MM3 Mean Platelet Volume 10.4 FL Neutrophils (%) (Auto) 72.8 % Lymphocytes (%) (Auto) 8.7 % Monocytes (%) (Auto) 13.0 % Eosinophils (%) (Auto) 4.9 % Basophils (%) (Auto) 0.6 % Neutrophils # (Auto) 7.4 TH/MM3 Lymphocytes # (Auto) 0.9 TH/MM3 Monocytes # (Auto) 1.3 TH/MM3 Eosinophils # (Auto) 0.5 TH/MM3 Basophils # (Auto) 0.1 TH/MM3 CBC Comment DIFF FINAL Differential Comment Sodium Level 145 MEQ/L Potassium Level 3.5 MEQ/L Chloride Level 104 MEQ/L Carbon Dioxide Level 32.9 MEQ/L Anion Gap 8 MEQ/L Blood Urea Nitrogen 34 MG/DL Creatinine 1.54 MG/DL Estimat Glomerular Filtration 43 ML/MIN Rate Random Glucose 128 MG/DL Calcium Level 9.8 MG/DL Physical Exam General General Appearance: Well Developed, No Acute Distress, Malnourished Eyes Eye Exam: Pupils Equal, Pupils Reactive Ears & Nose Ears & Nose Exam: Nasal Mucosa [place] Throat Throat Exam: Oral Mucosa [place] & Moist Neck Neck Exam: Neck Supple, Trachea Midline Pulmonary Resp Exam: Crackles, Diminished Breath Sounds, Poor Inspiratory Effort Cardiology CV Exam: Irregular, Arrhythmia, Pacemaker Gastrointestinal/Abdomen GI Exam: Soft, Non-Tender, Bowel Sounds Present, Non-Distended Musculoskeletal MS Exam: Joints Intact Integumentary Skin Exam: Warm, Dry Extremeties Extremities Exam: No Edema, Pedal Pulses Palpable Neurologic Neuro Exam: Awake, Moving All Extremities, No Focal Deficits VTE Prophylaxis VTE Prophylaxis Device: SCDs VTE Prophylaxis Meds: Heparin PUD Prophylasis PUD Prophylaxis: Protonix Assessment/Plan Problem List: (1) Respiratory failure (2) Congestive heart failure (CHF) (3) NSVT (nonsustained ventricular tachycardia) (4) Hypertension (5) Valvular heart disease (6) Hx recent TAVR (7) CAD (coronary artery disease) (8) Ltxaq-rr-cvzdfyy kidney injury Assessment/Plan Assessment/Plan Problem List: (1) Respiratory failure (2) Congestive heart failure (CHF) (3) NSVT (nonsustained ventricular tachycardia) (4) Hypertension (5) Valvular heart disease (6) Hx recent TAVR (7) CAD (coronary artery disease) (8) Jqaxj-hr-lfvyyoc kidney injury Assessment/Plan Physical therapy eval and treat continues, need SNF at discharge Dysphasia, swallow weak, seen per ST, diet advanced to soft diet. may need outpatient dilatation of ? esophageal stricture. Acute on chronic congestive heart failure, hx TAVR, cardiomyopathy. 2-D echo EF 15-20%, repeat Echo in 3 months to determine defib placement Cardiology input appreciated, Continue po amiodarone and Coreg aspirin, change to po diuretics. -s/p PPM , HR in 50s and 60s Monitor intake and output. -awaiting lifevest delivery Possible underlying pneumonia vs atelactasis Continue with po antibiotics Continue with O2 and duo nebs prn Acute on chronic renal injury, labs reviewed, renal function essentially unchanged. This is probably his baseline Monitor labs as needed Hypertension, controlled Coreg, amiodarone Heparin for DVT prophylaxis Protonix for GI prophylaxis Patient's condition guarded, discharge planning SNF, rehab. discussed with nursing staff ok to d/c to SNF today, pending Life vest delivery. Discussed with Dr Marquez cleared for discharge to rehab per Cardiology, after life vest delivered Problem Qualifiers (1) Respiratory failure: (2) Congestive heart failure (CHF): Qualified Code: I50.21 - Acute systolic congestive heart failure (3) Hypertension: Qualified Code: I10 - Essential hypertension (4) CAD (coronary artery disease): Qualified Code: I25.10 - Coronary artery disease involving [place] coronary artery of [place] heart without angina pectoris Yamini Reed MD Jun 30, 2016 11:02
--- NOTE | 2016-06-30 17:19 | HHI.DS ---
Discharge Summary Admission Date Jun 24, 2016 at 13:06 Discharge Date: Jun 30, 2016 Admitting Diagnosis GEN WEAKNESS; NON SUSTAINED VTACH; CHF EXAC; ELEVATED TROP CBC/BMP: 06/30/16 0522 06/30/16 05 Significant Findings Laboratory Tests Test 06/28/16 06/30/16 04:50 05:22 Red Blood Count 3.76 MIL/MM3 3.78 MIL/MM3 (4.50-5.90) (4.50-5.90) Hemoglobin 11.5 GM/DL 11.1 GM/DL (13.0-17.0) (13.0-17.0) Hematocrit 33.8 % 34.4 % (39.0-51.0) (39.0-51.0) Neutrophils (%) (Auto) 77.1 % 72.8 % (16.0-70.0) (16.0-70.0) Lymphocytes (%) (Auto) 6.5 % 8.7 % (9.0-44.0) (9.0-44.0) Monocytes (%) (Auto) 12.0 % 13.0 % (0.0-8.0) (0.0-8.0) Neutrophils # (Auto) 8.5 TH/MM3 (1.8-7.7) Lymphocytes # (Auto) 0.7 TH/MM3 0.9 TH/MM3 (1.0-4.8) (1.0-4.8) Monocytes # (Auto) 1.3 TH/MM3 1.3 TH/MM3 (0-0.9) (0-0.9) Blood Urea Nitrogen 31 MG/DL (7-18) 34 MG/DL (7-18) Creatinine 1.40 MG/DL 1.54 MG/DL (0.60-1.30) (0.60-1.30) Estimat Glomerular Filtration 48 ML/MIN (>89) 43 ML/MIN (>89) Rate Random Glucose 147 MG/DL 128 MG/DL (74-106) (74-106) Eosinophils (%) (Auto) 4.9 % (0.0-4.0) Eosinophils # (Auto) 0.5 TH/MM3 (0-0.4) Carbon Dioxide Level 32.9 MEQ/L (21.0-32.0) Imaging Last Impressions Chest X-Ray 06/25/16 0000 Signed Impressions: Service Date/Time: June 17:13 - CONCLUSION: No evidence of pneumothorax Ludin Florentino MD PE at Discharge General Appearance: Well Developed, No Acute Distress, Malnourished Eyes Eye Exam: Pupils Equal, Pupils Reactive Ears & Nose Ears & Nose Exam: Nasal Mucosa [place] Throat Throat Exam: Oral Mucosa [place] & Moist Neck Neck Exam: Neck Supple, Trachea Midline Pulmonary Resp Exam: Crackles, Rhonchi, Diminished Breath Sounds, Poor Inspiratory Effort Resp Remarks weak swallow, aspiration? Cardiology CV Exam: Irregular, Arrhythmia, Pacemaker CV Remarks Recent permanent pacemaker, left shoulder chest area incision clean dry and intact Gastrointestinal/Abdomen GI Exam: Soft, Non-Tender, Bowel Sounds Present, Non-Distended MS Exam: Joints Intact Integumentary Skin Exam: Warm, Dry Extremeties Extremities Exam: No Edema, Pedal Pulses Palpable Neurologic Neuro Exam: Awake, Moving All Extremities, No Focal Deficits VTE Prophylaxis VTE Prophylaxis Device: SCDs VTE Prophylaxis Meds: Heparin PUD Prophylasis PUD Prophylaxis: Protonix Hospital Course These of the diagnosis that were used to treat this patient during this hospital stay (1) Respiratory failure (2) Congestive heart failure (CHF) (3) NSVT (nonsustained ventricular tachycardia) (4) Hypertension (5) Valvular heart disease (6) Hx recent TAVR (7) CAD (coronary artery disease) (8) Mmmiv-sk-vbboyhs kidney injury 89 year old elderly male admitted with NSVT and CHF. Overnight, patient developed agitation, went into respiratory failure. Intubated on 06/25/2016 Patient went into Respiratory failure sec. fluid overload. Critical care now managing, their input is appreciated Continue with Lasix 40 mg IV twice a day, initially He was also treated for Acute on chronic congestive heart failure, hx TAVR, cardiomyopathy. 2-D echo done Cardiology input appreciated, Dr. Marquez following Continue with Lasix IV Monitor intake and output During his hospital stay patient experienced NSVT -Continue lidocaine drip, dysrhythmia episodes improving. Per cardiology notes, the plan is for pacemaker and change to amiodarone by mouth. Once patient was stable pacemaker was done Patient was also complicated with Possible underlying pneumonia Continue with antibiotics A sputum culture pending Follow cultures CAD -continue with medical management Vital signs reviewed, as well as his labs for any abnormals. Patient was monitored for low-grade temp as well as heart rate which was in the 60s most of the t Physical therapy eval and treated patient during his hospital stay to assist with strengthening, ADLs, and improve his mobility. Patient was very weak, was not able to participate as we had hoped. He was complicated with dysphasia, acute on chronic congestive heart failure with a low EF, and decreased appetite as well as by mouth intake. Dysphasia, swallow weak, seen per ST, patient eating very little and drinking very little, still has some coarse rhonchi. . Food pureed. Patient is lethargic, opens eyes to loud voice, but does not follow simple commands this a.m. debility continues, condition is guarded Acute on chronic congestive heart failure, hx TAVR, cardiomyopathy. 2-D echo EF 15-20%. It was eval early in patient's admission that he would probably need a LifeVest discharge. Cardiology was consulted input appreciated, patient now on by mouth amiodarone and Coreg aspirin, will continue IV diuresis, permanent pacemaker in place, sling on left shoulder, mild bruising noted at pacemaker site, dressing clean dry and intact, reviewed pacemaker parameters heart rate set on 50. Patient's rate does drop in the 50s and 60s Monitor intake and output, SCDs on. Possible underlying pneumonia, possible aspiration Continue with antibiotics A sputum culture pending Continue with O2 and duo nebs Acute on chronic renal injury, labs reviewed throughout his hospital stay, renal function essentially unchanged. This is probably his baseline Hypertension, controlled with Coreg, amiodarone, BP were monitored every 4 and when necessary Heparin for DVT prophylaxis Protonix for GI prophylaxis Patient's condition guarded, discharge planning will probably involved SNF, rehab. Concerned over his overall prognosis. Patient told his that he was not hungry and that he did not want to eat. Patient seen and examined per Dr. liao on day of discharge Patient is very hard of hearing opens eyes and follows commands, does appear lethargic ? transition to po diuretics per Cardiology incentive spirometer at bedside encouraged throughout the day change antibiotics to PO, now the patient is stable for swallow PT eval: needs rehab at discharge, when cleared by cardiology discussed with nursing staff discussed with Janet MADSEN Pt Condition on Discharge: Guarded Discharge Instructions Follow up Referrals: Cardiology - 2 Weeks with Devyn Marquez MD PCP Follow-up New Medications: Furosemide (Lasix) 40 Mg Tab 40 MG PO BID Cardiomyopathy #60 Ref 0 TAB Amiodarone (Amiodarone) 200 Mg Tab 400 MG PO Q12HR arrythmia #60 TAB Carvedilol (Coreg) 3.125 Mg Tab 3.125 MG PO Q12HR arrythmia #60 TAB Cephalexin (Cephalexin) 250 Mg Cap 250 MG PO Q8HR Chest Congestion/Cough #15 CAP Continued Medications: Alendronate (Fosamax) 70 Mg Tab 70 MG PO Q7D Osteoporosis Treatment #4 Ref 0 TAB Allopurinol (Zyloprim) 100 Mg Tab 100 MG PO DAILY Gout #[address] Ref [address] (Aspirin 81) 81 Mg Tabdr 81 MG PO DAILY Ref 0 TAB Cholecalciferol (Vitamin D3) 5,000 Unit Chew 5000 UNITS CHEW DAILY Nutritional Supplement #1 Ref 0 BOTTLE Clotrimazole Topical (Clotrimazole Topical) 1% Soln 3 DROP LEFT EAR BID ML Coenzyme Q10 (Ubidecarenone) (Coq10) 100 Mg Cap Dutasteride-Tamsulosin (Mamie) 0.5-0.4 Mg Cap 1 CAP PO DAILY Manage Prostate Problems #30 Ref 0 CAP Gabapentin (Gabapentin) 300 Mg Cap 300 MG PO DAILY #30 Ref 0 CAP Pantoprazole (Protonix) 40 Mg Tab 40 MG PO DAILY Reflux #30 Ref 0 TAB Discontinued Medications: Doxycycline Hyclate (Doxycycline Hyclate) 100 Mg Cap 100 MG PO BID Infection Ref 0 CAP Furosemide (Lasix) 20 Mg Tab 20 MG PO DAILY #30 Ref 0 TAB Janet Rascon Jun 30, 2016 17:18
[2016-06-30] MEDS: FUROSEMIDE 40 MG TAB PO SCH (18:11)
[2016-06-30] MEDS: POVIDONE IODINE 5% (ANTISEPSIS KIT) 4 APPLICATIONS TOPICAL SCH (21:00)
[2016-06-30] MEDS: CHLORHEXIDINE GLUCONATE 2 % 1 PACK (2 CLOTHS) TOPICAL SCH (21:00)
[2016-06-30] MEDS: MUPIROCIN 2% OINT 1 APPLIC/GM SYR EACH NARE SCH (21:29)
[2016-07-01] VITALS (25 sets, daily range): BP systolic 100–136; BP diastolic 45–76; PULSE 49–70; RESP 12–20; TEMP 96.9–98.5; O2SAT 3–98
[2016-07-01] MEDS: CEPHALEXIN MONOHYDRATE 250 MG CAP PO SCH ×3 (05:04→21:05)
--- NOTE | 2016-07-01 07:41 | PD.CARD.PN ---
Subjective Subjective Remarks Somnolent. Denies pain, dyspnea, dizziness. Objective Medications Item Value Date Time Amiodarone HCl 400 mg 07/01/16 0900 (Cordarone) DAILY/PO Furosemide 40 mg 06/30/16 1800 (Lasix) BID@,18/PO 06/30/16 181 Carvedilol 3.125 mg 06/26/16 0900 (Coreg) Q12HR/PO 06/30/16 212 Aspirin 81 mg 06/25/16 0900 (Ecotrin Ec) DAILY/PO 06/30/16 0840 Finasteride 5 mg 06/25/16 0900 (Proscar) DAILY/PO 06/30/16 0841 Vital Signs / I&O Vital Signs Date Time Temp Pulse Resp B/P Pulse Ox O2 Delivery O2 Flow Rate FiO2 07/01/16 06:00 70 07/01/16 05:00 56 07/01/16 04:00 54 07/01/16 03:00 96.9 51 16 136/76 96 07/01/16 03:00 52 07/01/16 02:00 50 07/01/16 01:00 54 07/01/16 00:00 50 06/30/16 23:00 61 06/30/16 23:00 96.7 51 16 133/66 92 06/30/16 22:00 50 06/30/16 21:00 52 06/30/16 19:00 53 06/30/16 19:00 97.6 51 18 104/57 93 06/30/16 18:00 55 06/30/16 17:00 52 06/30/16 16:00 49 06/30/16 15:00 53 06/30/16 15:00 98.6 50 16 114/51 97 06/30/16 14:00 50 06/30/16 13:00 55 06/30/16 12:00 50 06/30/16 12:00 97.8 50 16 107/58 99 06/30/16 12:00 49 06/30/16 11:00 55 06/30/16 10:00 50 06/30/16 09:00 52 06/30/16 08:00 52 06/30/16 08:00 97.6 52 16 124/67 96 I/O 06/30/16 06/30/16 06/30/16 07/01/16/12/17 4/12/17 07:00 15:00 23:00 07:00 15:00 23:00 Intake Total 440 ml Output Total 900 ml 850 ml 150 ml Balance -900 ml -410 ml -150 ml Intake Oral 400 ml IV Total 40 ml Output Urine Total 900 ml 850 ml 150 ml # Bowel Movements 0 Physical Exam GENERAL: Well developed, well nourished. No acute distress. HEENT: Jugular venous pressure normal.. CHEST: Clear lung cote anteriorly. CARDIAC: Regular rate and rhythm without S3, S4, murmur. ABDOMEN: Soft, nontender, no hepatosplenomegaly. Bowel sounds present. EXTREMITIES: No clubbing, cyanosis, or edema. Assessment and Plan Problem List: (1) Wide QRS ventricular tachycardia Assessment and Plan: Overall stable. Much less ventricular ectopy past 48 hours, now with rare ventricular couplets. Tolerating Amiodarone. LifeVest in place. OK to discharge to rehab from a cardiac standpoint. (2) Congestive heart failure (CHF) Assessment and Plan: Appears compensated. EF 20% by echo. Renal indices stable. Continue beta july. No CHARLINE-I with his renal insufficiency. 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 EF 50-55% on echo September 2015 at [facility]. LifeVest now in place. If EF still < 35% in 3 months rec, change pacer system to ICD. (3) CAD (coronary artery disease) Assessment and Plan: Stable. No angina. Continue daily aspirin, beta july. (4) Hypertension Assessment and Plan: Stable. Normotensive. (5) History of aortic valve replacement Assessment and Plan: History of TAVR 2015. Code Status full code Discussed Condition With patient Problem Qualifiers (1) Congestive heart failure (CHF): Qualified Code: I50.21 - Acute systolic congestive heart failure (2) CAD (coronary artery disease): Qualified Code: I25.10 - Coronary artery disease involving [place] coronary artery of [place] heart without angina pectoris (3) Hypertension: Qualified Code: I10 - Essential hypertension Devyn Marquez MD Jul 01, 2016 07:41
[2016-07-01] MEDS: SODIUM CHLOR 0.9% 1000 ML INJ 1,000 ML IV SCH (08:00)
[2016-07-01] MEDS: CHLORHEXIDINE 0.12% (ORAL KIT) 15 ML CUP MT SCH ×2 (08:00→20:00)
[2016-07-01] MEDS: CLOTRIMAZOLE 1% SOLN 30 ML BTL SCH ×4 (09:00→21:04)
[2016-07-01] MEDS: SODIUM CHLORIDE 0.9% FLUSH 10 ML FLUSH IV FLUSH SCH ×2 (09:04→20:47)
[2016-07-01] MEDS: FUROSEMIDE 40 MG TAB PO SCH ×2 (09:05→17:51)
[2016-07-01] MEDS: PANTOPRAZOLE SOD 40 MG DELAYED RELEASE TAB PO SCH (09:05)
[2016-07-01] MEDS: CARVEDILOL 3.125 MG TAB PO SCH ×2 (09:05→20:46)
[2016-07-01] MEDS: ASPIRIN EC 81 MG TABEC PO SCH (09:06)
[2016-07-01] MEDS: FINASTERIDE 5 MG TAB PO SCH (09:06)
[2016-07-01] MEDS: SENNOSIDES 8.6 MG TAB PO SCH (09:06)
[2016-07-01] MEDS: ALLOPURINOL 100 MG TAB PO SCH (09:06)
[2016-07-01] MEDS: AMIODARONE 200 MG TAB PO SCH (09:06)
[2016-07-01] MEDS: TAMSULOSIN HCL 0.4 MG CAP PO SCH (09:06)
[2016-07-01] MEDS: CHOLECALCIFEROL (VIT D3) 5000 UNIT CAP PO SCH (09:06)
[2016-07-01] MEDS: GABAPENTIN 300 MG CAP PO SCH (09:06)
--- NOTE | 2016-07-01 11:10 | HHI.PR ---
Subjective Interval History awake alert laying in bed life vest in place discharge held yesterday sec to pending auth for life vest from insurance company Review of Systems Constitutional Constitutional: Fatigue, Weakness Ears and Nose Ears and Nose: Congestion (few rhonchi) Pulmonary Respiratory: Shortness of Breath (mild ) Musculoskeletal MS: Weakness, Stiffness, Swelling (trace edema) Psychiatric Psychiatric: Normal Mood, Agitation (at times) Vitals/Results Intake & Output 06/30/16 06/30/16 07/01/16 15:00 23:00 07:00 Intake Total 440 ml Output Total 850 ml 150 ml Balance -410 ml -150 ml Intake Oral 400 ml IV Total 40 ml Output Urine Total 850 ml 150 ml # Bowel Movements 0 Vital Signs Vital Signs Date Time Temp Pulse Resp B/P Pulse Ox O2 Delivery O2 Flow Rate FiO2 07/01/16 10:00 55 07/01/16 09:00 54 07/01/16 08:00 50 07/01/16 08:00 97.5 53 16 100/50 3 07/01/16 07:00 53 07/01/16 06:00 70 07/01/16 05:00 56 07/01/16 04:00 54 07/01/16 03:00 96.9 51 16 136/76 96 07/01/16 03:00 52 07/01/16 02:00 50 07/01/16 01:00 54 07/01/16 00:00 50 06/30/16 23:00 61 06/30/16 23:00 96.7 51 16 133/66 92 06/30/16 22:00 50 06/30/16 21:00 52 06/30/16 19:00 53 06/30/16 19:00 97.6 51 18 104/57 93 06/30/16 18:00 55 06/30/16 17:00 52 06/30/16 16:00 49 06/30/16 15:00 53 06/30/16 15:00 98.6 50 16 114/51 97 06/30/16 14:00 50 06/30/16 13:00 55 06/30/16 12:00 50 06/30/16 12:00 97.8 50 16 107/58 99 06/30/16 12:00 49 CBC/BMP: 06/30/16 0522 06/30/16 0522 Physical Exam General General Appearance: Well Developed, No Acute Distress, Malnourished Eyes Eye Exam: Pupils Equal, Pupils Reactive Ears & Nose Ears & Nose Exam: Nasal Mucosa [place] Throat Throat Exam: Oral Mucosa [place] & Moist Neck Neck Exam: Neck Supple, Trachea Midline Pulmonary Resp Exam: Crackles, Diminished Breath Sounds, Poor Inspiratory Effort Cardiology CV Exam: Irregular, Arrhythmia, Pacemaker Gastrointestinal/Abdomen GI Exam: Soft, Non-Tender, Bowel Sounds Present, Non-Distended Musculoskeletal MS Exam: Joints Intact Integumentary Skin Exam: Warm, Dry Extremeties Extremities Exam: No Edema, Pedal Pulses Palpable Neurologic Neuro Exam: Awake, Moving All Extremities, No Focal Deficits VTE Prophylaxis VTE Prophylaxis Device: SCDs VTE Prophylaxis Meds: Heparin PUD Prophylasis PUD Prophylaxis: Protonix Assessment/Plan Problem List: (1) Respiratory failure (2) Congestive heart failure (CHF) (3) NSVT (nonsustained ventricular tachycardia) (4) Hypertension (5) Valvular heart disease (6) Hx recent TAVR (7) CAD (coronary artery disease) (8) Ibljx-vw-ipbeiam kidney injury Assessment/Plan Assessment/Plan Problem List: (1) Respiratory failure (2) Congestive heart failure (CHF) (3) NSVT (nonsustained ventricular tachycardia) (4) Hypertension (5) Valvular heart disease (6) Hx recent TAVR (7) CAD (coronary artery disease) (8) Qqmqt-yx-odgiyyv kidney injury Assessment/Plan Physical therapy eval and treat continues, need SNF at discharge Dysphasia, swallow weak, seen per ST, diet advanced to soft diet. may need outpatient dilatation of ? esophageal stricture. Acute on chronic congestive heart failure, hx TAVR, cardiomyopathy. 2-D echo EF 15-20%, repeat Echo in 3 months to determine defib placement Cardiology input appreciated, Continue po amiodarone and Coreg aspirin, change to po diuretics. -s/p PPM , HR in 50s and 60s Monitor intake and output. - lifevest delivered and on Possible underlying pneumonia vs atelactasis Continue with po antibiotics Continue with O2 and duo nebs prn Acute on chronic renal injury, labs reviewed, renal function essentially unchanged. This is probably his baseline Monitor labs as needed Hypertension, controlled Coreg, amiodarone Heparin for DVT prophylaxis Protonix for GI prophylaxis Patient's condition guarded, discharge planning SNF, rehab. discussed with nursing staff ok to d/c to SNF today cleared for discharge to rehab per Cardiology Problem Qualifiers (1) Respiratory failure: (2) Congestive heart failure (CHF): Qualified Code: I50.21 - Acute systolic congestive heart failure (3) Hypertension: Qualified Code: I10 - Essential hypertension (4) CAD (coronary artery disease): Qualified Code: I25.10 - Coronary artery disease involving [place] coronary artery of [place] heart without angina pectoris Yamini Reed MD Jul 01, 2016 11:10
[2016-07-01] MEDS: MUPIROCIN 2% OINT 1 APPLIC/GM SYR EACH NARE SCH (20:47)
[2016-07-01] MEDS: CHLORHEXIDINE GLUCONATE 2 % 1 PACK (2 CLOTHS) TOPICAL SCH (21:00)
[2016-07-01] MEDS: POVIDONE IODINE 5% (ANTISEPSIS KIT) 4 APPLICATIONS TOPICAL SCH (21:00)
[2016-07-02] VITALS (13 sets, daily range): BP systolic 98–119; BP diastolic 52–66; PULSE 50–56; RESP 16–18; TEMP 96.9–98.6; O2SAT 95–97
[2016-07-02] MEDS: CEPHALEXIN MONOHYDRATE 250 MG CAP PO SCH (06:00)
[2016-07-02] MEDS: CHLORHEXIDINE 0.12% (ORAL KIT) 15 ML CUP MT SCH (08:00)
[2016-07-02] MEDS: FINASTERIDE 5 MG TAB PO SCH (08:54)
[2016-07-02] MEDS: PANTOPRAZOLE SOD 40 MG DELAYED RELEASE TAB PO SCH (08:54)
[2016-07-02] MEDS: AMIODARONE 200 MG TAB PO SCH (08:54)
[2016-07-02] MEDS: ASPIRIN EC 81 MG TABEC PO SCH (08:55)
[2016-07-02] MEDS: FUROSEMIDE 40 MG TAB PO SCH (08:55)
[2016-07-02] MEDS: GABAPENTIN 300 MG CAP PO SCH (08:55)
[2016-07-02] MEDS: ALLOPURINOL 100 MG TAB PO SCH (08:55)
[2016-07-02] MEDS: SENNOSIDES 8.6 MG TAB PO SCH (08:56)
[2016-07-02] MEDS: SODIUM CHLORIDE 0.9% FLUSH 10 ML FLUSH IV FLUSH SCH (08:56)
[2016-07-02] MEDS: CARVEDILOL 3.125 MG TAB PO SCH (08:56)
[2016-07-02] MEDS: CLOTRIMAZOLE 1% SOLN 30 ML BTL SCH ×2 (08:56→08:57)
--- NOTE | 2016-07-02 09:26 | HHI.PR ---
Subjective Subjective Remarks Resting comfortably, poor appetite No chest pain No shortness of breath Has a cough, nonproductive No fever Waiting to be discharged Review of Systems Constitutional Constitutional Remarks 12 point review of systems difficult to obtain, very hard of hearing Vitals/Results Intake & Output 07/01/16 07/01/16 07/02/16 15:00 23:00 07:00 Intake Total 420 ml 240 ml Output Total 450 ml 350 ml Balance -30 ml -110 ml Intake Oral 420 ml 240 ml Output Urine Total 450 ml 350 ml # Voids 1 # Bowel Movements 0 Vital Signs Vital Signs Date Time Temp Pulse Resp B/P Pulse Ox O2 Delivery O2 Flow Rate FiO2 07/02/16 08:00 53 07/02/16 07:00 98.6 53 18 98/66 96 07/02/16 07:00 52 07/02/16 06:00 52 07/02/16 05:00 50 07/02/16 04:00 50 07/02/16 03:00 96.9 56 16 100/52 95 07/02/16 03:00 54 07/02/16 02:00 54 07/02/16 01:00 52 07/02/16 00:00 50 07/01/16 23:00 98.5 54 20 116/65 97 07/01/16 23:00 50 07/01/16 22:00 50 07/01/16 21:00 52 07/01/16 20:00 52 07/01/16 19:00 52 07/01/16 19:00 97.7 52 12 114/60 96 07/01/16 18:00 49 07/01/16 17:00 57 07/01/16 16:00 54 07/01/16 15:00 97.8 53 16 126/65 98 07/01/16 15:00 53 07/01/16 14:00 55 07/01/16 13:00 51 07/01/16 12:00 54 07/01/16 12:00 97.7 52 16 102/45 97 07/01/16 11:00 54 07/01/16 10:00 55 CBC/BMP: 06/30/16 0522 06/30/16 0522 Physical Exam General General Appearance: Well Developed, No Acute Distress, Comfortable, Malnourished Eyes Eye Exam: Pupils Equal, Pupils Reactive Ears & Nose Ears & Nose Exam: Nasal Mucosa Stonega Throat Throat Exam: Oral Mucosa Stone[place] & Moist Neck Neck Exam: Neck Supple, Trachea Midline Pulmonary Resp Exam: Rhonchi, Diminished Breath Sounds, Poor Inspiratory Effort Cardiology CV Exam: Irregular, Arrhythmia, Pacemaker Chest/Breast Chest/Breast Remarks incision to left CW Gastrointestinal/Abdomen GI Exam: Soft, Non-Tender, Bowel Sounds Present, Non-Distended Musculoskeletal MS Exam: Joints Intact Integumentary Skin Exam: Warm, Dry Extremeties Extremities Exam: No Edema, Pedal Pulses Palpable Neurologic Neuro Exam: Alert, Awake, Speech Clear, Moving All Extremities, No Focal Deficits Psychiatric Psych Exam: Appropriate Responses VTE Prophylaxis VTE Prophylaxis Device: SCDs VTE Prophylaxis Meds: Heparin PUD Prophylasis PUD Prophylaxis: Protonix Assessment/Plan Problem List: (1) Respiratory failure (2) Congestive heart failure (CHF) (3) NSVT (nonsustained ventricular tachycardia) (4) Hypertension (5) Valvular heart disease (6) Hx recent TAVR (7) CAD (coronary artery disease) (8) Pdauh-kp-thgvdon kidney injury Assessment/Plan Acute on chronic congestive heart failure, hx TAVR, cardiomyopathy. 2-D echo EF 15-20%, repeat Echo in 3 months to determine defib placement Cardiology input appreciated, Continue po amiodarone and Coreg aspirin, change to po diuretics. -s/p PPM , HR in 50s and 60s Monitor intake and output. - lifevest on NSVT -Continue Amiodarone -Life vest in place Possible underlying pneumonia vs atelactasis Continue with po antibiotics -Continue with O2 and duo nebs prn Dysphasia, swallow weak - seen per ST, diet advanced to soft diet. may need outpatient dilatation of ? esophageal stricture. Acute on chronic renal injury, labs reviewed, renal function essentially unchanged. This is probably his baseline -Monitor labs as needed Hypertension, controlled -Coreg, amiodarone Heparin for DVT prophylaxis Protonix for GI prophylaxis Discharge to rehabilitation today, insurance has approved Lifevest Patient cleared by cardiology Follow-up with cardiology Follow-up with PCP Diet heart healthy Activity as tolerated D/W RN D/W Dr. Wylie D/W pt. This patient was seen by myself and Dr. Wylie, this note is written on his behalf Discharge Minutes: 45 Problem Qualifiers (1) Respiratory failure: (2) Congestive heart failure (CHF): Qualified Code: I50.21 - Acute systolic congestive heart failure (3) Hypertension: Qualified Code: I10 - Essential hypertension (4) CAD (coronary artery disease): Qualified Code: I25.10 - Coronary artery disease involving [place] coronary artery of sh[place] heart without angina pectoris Nori Dave Jul 02, 2016 09:25 Problem Qualifiers (1) Respiratory failure: (2) Congestive heart failure (CHF): Qualified Code: I50.21 - Acute systolic congestive heart failure (3) Hypertension: Qualified Code: I10 - Essential hypertension (4) CAD (coronary artery disease): Qualified Code: I25.10 - Coronary artery disease involving [place] coronary artery of shoshone[place]ai[place] heart without angina pectoris Nori Dave Jul 02, 2016 09:25
[2016-07-02] MEDS: CHOLECALCIFEROL (VIT D3) 5000 UNIT CAP PO SCH (10:01)
[2016-07-02] MEDS: TAMSULOSIN HCL 0.4 MG CAP PO SCH (10:01)
== END 2016-07-02 12:36 | DRG 242 ==
LOC: NEPE 11:04 → NEDA 13:06 → HCIS 18:49 → N03A 19:49 → HCIS 06-27 17:24
PROVIDERS: ADMIT Specialist; ATTEND Specialist
PROC: 5A1935Z Respiratory Ventilation, Less than 24 Consecutive Hours (ICD-10-PCS; 2016-06-25)
PROC: 0BH17EZ Insertion of Endotracheal Airway into Trachea, Via Natural or Artificial Opening (ICD-10-PCS; 2016-06-25)
PROC: 0JH606Z Insertion of Pacemaker, Dual Chamber into Chest Subcutaneous Tissue and Fascia, Open Approach (ICD-10-PCS; principal; 2016-06-28)
PROC: 02HK3JZ Insertion of Pacemaker Lead into Right Ventricle, Percutaneous Approach (ICD-10-PCS; 2016-06-28)
PROC: 02H63JZ Insertion of Pacemaker Lead into Right Atrium, Percutaneous Approach (ICD-10-PCS; 2016-06-28)
DX: I13.0 Hypertensive heart and chronic kidney disease with heart failure and stage 1 through stage 4 chronic kidney disease, or unspecified chronic kidney disease (principal); I50.23 Acute on chronic systolic (congestive) heart failure; J96.90 Respiratory failure, unspecified, unspecified whether with hypoxia or hypercapnia; G92 Toxic encephalopathy; J18.9 Pneumonia, unspecified organism; N17.9 Acute kidney failure, unspecified; I47.2 Ventricular tachycardia; N18.3 Chronic kidney disease, stage 3 (moderate); I42.9 Cardiomyopathy, unspecified; I49.5 Sick sinus syndrome; D64.9 Anemia, unspecified; I35.0 Nonrheumatic aortic (valve) stenosis; I25.10 Atherosclerotic heart disease of native coronary artery without angina pectoris; J61 Pneumoconiosis due to asbestos and other mineral fibers; T42.4X5A Adverse effect of benzodiazepines, initial encounter; K21.9 Gastro-esophageal reflux disease without esophagitis; K59.00 Constipation, unspecified; K22.2 Esophageal obstruction; H91.93 Unspecified hearing loss, bilateral; M10.9 Gout, unspecified; R13.10 Dysphagia, unspecified; M54.9 Dorsalgia, unspecified; F41.9 Anxiety disorder, unspecified; Z22.322 Carrier or suspected carrier of Methicillin resistant Staphylococcus aureus; W01.0XXA Fall on same level from slipping, tripping and stumbling without subsequent striking against object, initial encounter; Z85.01 Personal history of malignant neoplasm of esophagus; Z86.14 Personal history of Methicillin resistant Staphylococcus aureus infection; Z87.891 Personal history of nicotine dependence; Z95.2 Presence of prosthetic heart valve
CPT/HCPCS: 31500; 33208; 36600; 71010; 80048; 80053; 81001; 82550; 82805; 83735; 83880; 84484; 85025; 85027; 85610; 85730; 87070; 87077; 87186; 87205; 87641; 93005; 93306; 94002; 94003; 94150; 96374; C1785; C1898; J0282; J0360; J1644; J1940; J2001; J2060; J3370; J3480; J7030; J7050; J7060

== ENCOUNTER 2016-08-04 06:15 | Emergency (ER) | payer MEDICARE ==
[~2016-08-04] VITALS: Ht 165.1 cm; Wt 70.0 kg
[~2016-08-04 06:15] MED LIST changes: +AMIO200T PO; +CARV3.125 PO; -CARV6.25 PO; +CEPH250C PO; +CLOTR1%T LEFT EAR; +FURO1TAB60 PO; -FURO1TAB62 PO; -HYDR-3516 PO; -ZYVO600T PO
[2016-08-04 06:23] VITALS: BP 168/71; PULSE 51; RESP 20; TEMP 97.7
[2016-08-04] MEDS ORDERED: TETANUS/DIPHTHERIA TOXOID ADULT 0.5 ML VIAL IM ONE (06:30)
[2016-08-04] MEDS ORDERED: LIDOCAINE HCL 1% 50 ML VIAL INFIL ONE (06:30)
--- NOTE | 2016-08-04 06:53 | PD ---
Physical Exam Date Seen by Provider: August 04, 2016 Time Seen by Provider: 06:50 Narrative Skin: Patient has a 2 cm laceration of the right pinna. Laceration goes through the outer rim but does not penetrate the cartilage. There is soft tissue abrasion and there is a small hematoma to the antihelix. Data Data Last Documented VS Vital Signs Date Time Temp Pulse Resp B/P Pulse Ox O2 Delivery O2 Flow Rate FiO2 08/04/16 06:30 52 20 08/04/16 06:23 97.7 168/71 Orders Complete Blood Count With Diff (08/04/16 06:22) Basic Metabolic Panel (Bmp) (08/04/16 06:22) Troponin I (08/04/16 06:22) Act Partial Throm Time (Ptt) (08/04/16:22) Prothrombin Time / Inr (Pt) (08/04/16 06:22) Ct Brain W/O Iv Contrast(Rout) (08/04/16 ) Tetanus/Diphtheria Tox Adult (Tetanus/Di (08/04/16 06:30) Lidocaine 1% Inj (50 Ml) (Xylocaine 1% I (08/04/16 06:30) MDM Medical Record Reviewed: Yes Supervised Visit with RHEA: Yes Differential Diagnosis MDM: High Differential diagnoses: Fracture, sprain, strain, dislocation, contusion, neurovascular injury Narrative Course Patient's laceration is close to sutures. Procedures Procedure Narrative LACERATION LOCATION: Right earlobe LENGTH: 2 cm NUMBER OF STITCHES/MARQUIS: 6 REPAIR: The area of the laceration was prepped with Betadine and sterilely draped. The laceration was infiltrated with 1% lidocaine. The wound was copiously irrigated and explored without evidence of foreign body, tendon injury or neurovascular injury. The wound was closed using 6-0 proline. This was a simple single layer repair. A sterile dressing was applied. The patient was advised to keep the dressing clean and dry. Patient tolerated the procedure well. Additional Instruction: Rest. Ice pack tonight. Tylenol for pain. Daily wound care with soap, water, Neosporin. Sutures out in 7 days. Sunscreen and mederma for 6 months. Return to the ER for any problems. Med/Other Pt SpecificInfo: Wound Care Daniel Plunkett August 04, 2016 06:53
[2016-08-04 07:11] LABS: AUTOMATED NEUTROPHIL # 4.2 TH/MM3 (1.8-7.7); BASOPHIL # 0.1 TH/MM3 (0-0.2); BASOPHIL % 1.4 % (0.0-2.0); EOSINOPHIL # 0.5 TH/MM3 (0-0.4); EOSINOPHIL % 7.8 % (0.0-4.0); HEMATOCRIT 29.9 % (39.0-51.0); HEMO FLAGS DIFF FINAL; LYMPHOCYTE # 0.8 TH/MM3 (1.0-4.8); MEAN CORPUSCULAR HEMOGLOBIN 29.6 PG (27.0-34.0); MEAN CORPUSCULAR HGB CONC 32.5 % (32.0-36.0); MONO % 9.5 % (0.0-8.0); NEUT % 68.3 % (16.0-70.0); PLATELET COUNT 190 TH/MM3 (150-450); RED BLOOD COUNT 3.28 MIL/MM3 (4.50-5.90); RED CELL DISTRIBUTION WIDTH 16.5 % (11.6-17.2); WHITE BLOOD COUNT 6.2 TH/MM3 (4.0-11.0)
--- NOTE | 2016-08-04 07:12 | PD ---
HPI Chief Complaint: Laceration/Skin Injury Time Seen by Provider: 06:22 Travel History International Travel<30 days: No Contact w/Intl Traveler<30days: No Traveled to known affect area: No History of Present Illness HPI Patient is an 89-year-old male comes in after a mechanical fall today. He says his walker slid away from him and he fell onto his right side. He denies any complaints at this time. He is not having any pain. He did cut his right ear. He denies any chest pain or shortness of breath. He recently had a pacemaker placed. He denies feeling dizzy. He says he often falls causes legs give out on him. His wanted him to come and get a head CT. PFSH Past Medical History Heart Rhythm Problems: Yes Cancer: Yes (ESOPHOGEAL) Cardiovascular Problems: Yes Diminished Hearing: Yes Gastrointestinal Disorders: Yes Gout: Yes Genitourinary: Yes Hypertension: Yes Musculoskeletal: No Neurologic: No Reproductive: No Respiratory: Yes Tetanus Vaccination: < 5 Years Past Surgical History Abdominal Surgery: Yes (ESOPHOGEAL- STOMACH SURGERY) Appendectomy: Yes Cardiac Surgery: Yes (ATRIAL VALVE) Cholecystectomy: Yes Pacemaker: Yes Tonsillectomy: Yes Other Surgery: Yes Social History Alcohol Use: No Tobacco Use: No Substance Use: No Allergies-Medications (Allergen,Severity, Reaction): 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) Reported Meds & Prescriptions Reported Meds & Active Scripts Active Lasix (Furosemide) 40 Mg Tab 40 Mg PO BID Cephalexin 250 Mg Cap 250 Mg PO Q8HR Coreg (Carvedilol) 3.125 Mg Tab 3.125 Mg PO Q12HR Amiodarone (Amiodarone HCl) 200 Mg Tab 400 Mg PO Q12HR Reported Clotrimazole Topical (Clotrimazole) 1% Soln 3 Drop LEFT EAR BID Zyloprim (Allopurinol) 100 Mg Tab 100 Mg PO DAILY Protonix (Pantoprazole Sodium) 40 Mg Tab 40 Mg PO DAILY Gabapentin 300 Mg Cap 300 Mg PO DAILY Fosamax (Alendronate Sodium) 70 Mg Tab 70 Mg PO Q7D Coq10 (Coenzyme Q10 (Ubidecarenone)) 100 Mg Cap Aspirin 81 (Aspirin) 81 Mg Tabdr 81 Mg PO DAILY Mamie (Dutasteride-Tamsulosin) 0.5-0.4 Mg Cap 1 Cap PO DAILY Vitamin D3 (Cholecalciferol) 5,000 Unit Chew 5,000 Units CHEW DAILY Review of Systems Except as stated in HPI: all other systems reviewed are Neg General / Constitutional: No: Fever, Chills Eyes: No: Blurred Vision HENT: No: Vertigo, Lightheadedness Cardiovascular: No: Chest Pain or Discomfort Respiratory: No: Shortness of Breath Gastrointestinal: No: Nausea, Vomiting Musculoskeletal: Positive: Other (laceration) Neurologic: No: Weakness, Dizziness Physical Exam Narrative GENERAL: Awake and alert, in no acute distress. SKIN: Laceration through the right earlobe. Minimal bleeding. HEAD: Atraumatic. Normocephalic. EYES: Pupils equal and round. No scleral icterus. Extraocular movements intact. ENT: Mucous membranes pink and moist. NECK: Trachea midline. No JVD. No cervical spine tenderness. CARDIOVASCULAR: Bradycardiam, Regular rate and rhythm. No murmur appreciated. RESPIRATORY: No accessory muscle use. Clear to auscultation. Breath sounds equal bilaterally. MUSCULOSKELETAL: No obvious deformities. No clubbing. No cyanosis. No edema. NEUROLOGICAL: Awake and alert. No obvious cranial nerve deficits. Motor grossly within normal limits. Normal speech. PSYCHIATRIC: Appropriate mood and affect; insight and judgment normal. Data Data Last Documented VS Vital Signs Date Time Temp Pulse Resp B/P Pulse Ox O2 Delivery O2 Flow Rate FiO2 08/04/16 06:30 52 20 08/04/16 06:23 97.7 168/71 Orders Complete Blood Count With Diff (08/04/16 06:22) Basic Metabolic Panel (Bmp) (08/04/16 06:22) Troponin I (08/04/16 06:22) Act Partial Throm Time (Ptt) (08/04/16 06:22) Prothrombin Time / Inr (Pt) (08/04/16 06:22) Ct Brain W/O Iv Contrast(Rout) (08/04/16 ) Tetanus/Diphtheria Tox Adult (Tetanus/Di (08/04/16 06:30) Lidocaine 1% Inj (50 Ml) (Xylocaine 1% I (08/04/16 06:30) MDM Medical Decision Making Medical Screen Exam Complete: Yes Emergency Medical Condition: Yes Medical Record Reviewed: Yes Interpretation(s) ECG shows paced rhythm at 50. Differential Diagnosis Mechanical fall versus syncope versus electrolyte abnormality versus dehydration Narrative Course Patient is an 89-year-old male comes in after a fall today. He says the walker slipped out from under him and he fell. He has no complaints. Exam shows a laceration to the right ear. IV established, labs sent. CT head performed. Laceration repaired by GAGAN Calzada. Patient signed out to Dr. Herrera to follow-up testing and disposition appropriately. Additional Instructions: Rest. Ice pack tonight. Tylenol for pain. Daily wound care with soap, water, Neosporin. Sutures out in 7 days. Sunscreen and mederma for 6 months. Return to the ER for any problems. Condition: Stable Margarita Olvera MD August 04, 2016 07:12
--- NOTE | 2016-08-04 07:12 | RADRPT ---
EXAM DATE/TIME: 08/04/2016 06:49 [facility] COMPARISON: CT BRAIN W/O CONTRAST, August 14, 2015, 3:38. INDICATIONS : Trauma, fell and hit head. RADIATION DOSE: 56.35 CTDIvol (mGy) MEDICAL HISTORY : Cardiovascular disease. Hypertension. Carcinoma, esophageal. SURGICAL HISTORY : Tonsillectomy. Appendectomy.Cholecystectomy. ENCOUNTER: Initial ACUITY: 1 day PAIN SCALE: 2/10 LOCATION: cranial TECHNIQUE: Multiple contiguous axial images were obtained of the head. Using automated exposure control and adj ustment of the mA and/or kV according to patient size, radiation dose was kept as low as reasonably a chievable to obtain optimal diagnostic quality images. FINDINGS: There is no evidence for intracranial hemorrhage, mass effect, mass lesions, or edema. The visualize d bony structures appear intact. Moderate degree of brain atrophy is seen. Moderate periventricular white matter changes are seen nonspecific mostly consistent with chronic small vessel ischemic change s. There are no signs of acute infarction for technique. There is sinusitis in multiple sinuses wors e in the right sphenoid sinus. CONCLUSION: Chronic and small vessel ischemic changes without any evidence for acute hemorrhage o r mass effect. Enrrique Hester MD on August 04, 2016 at 7:09 Board Certified Radiologist. This report was verified electronically.
[2016-08-04] MEDS ORDERED: AMIO200T PO (07:18)
[2016-08-04] MEDS ORDERED: FERR1TAB58 PO (07:18)
[2016-08-04] MEDS ORDERED: OMEG1CAP50 PO (07:18)
[2016-08-04] MEDS ORDERED: CYAN1TAB24 PO (07:18)
[2016-08-04] MEDS ORDERED: FURO20TA PO (07:18)
[2016-08-04 07:19] LABS: APTT (PATIENT) 27.8 SEC (24.3-30.1); PROTHROMBIN TIME - PATIENT 11.4 SEC (9.8-11.6)
[2016-08-04 07:20] VITALS: BP 133/63; PULSE 49; RESP 13; O2SAT 94
[2016-08-04 07:35] LABS: BICARBONATE 29.8 MEQ/L (21.0-32.0)
[2016-08-04 07:40] LABS: POTASSIUM 5.1 MEQ/L (3.5-5.1)
--- NOTE | 2016-08-04 07:49 | PD ---
Physical Exam Narrative Patient was seen by ED physician and signed out to me. Data Data Last Documented VS Vital Signs Date Time Temp Pulse Resp B/P Pulse Ox O2 Delivery O2 Flow Rate FiO2 08/04/16 07:20 49 13 133/63 94 Room Air 08/04/16 06:23 97.7 Orders Complete Blood Count With Diff (08/04/16 06:22) Basic Metabolic Panel (Bmp) (08/04/16 06:22) Troponin I (08/04/16 06:22) Act Partial Throm Time (Ptt) (08/04/16 06:22) Prothrombin Time / Inr (Pt) (08/04/16 06:22) Ct Brain W/O Iv Contrast(Rout) (08/04/16 ) Tetanus/Diphtheria Tox Adult (Tetanus/Di (08/04/16 06:30) Lidocaine 1% Inj (50 Ml) (Xylocaine 1% I (08/04/16 06:30) Electrocardiogram (08/04/16 ) Labs Laboratory Tests Test 08/04/16 06:20 White Blood Count 6.2 TH/MM3 Red Blood Count 3.28 MIL/MM3 Hemoglobin 9.7 GM/DL Hematocrit 29.9 % Mean Corpuscular Volume 91.0 FL Mean Corpuscular Hemoglobin 29.6 PG Mean Corpuscular Hemoglobin 32.5 % Concent Red Cell Distribution Width 16.5 % Platelet Count 190 TH/MM3 Mean Platelet Volume 9.6 FL Neutrophils (%) (Auto) 68.3 % Lymphocytes (%) (Auto) 13.0 % Monocytes (%) (Auto) 9.5 % Eosinophils (%) (Auto) 7.8 % Basophils (%) (Auto) 1.4 % Neutrophils # (Auto) 4.2 TH/MM3 Lymphocytes # (Auto) 0.8 TH/MM3 Monocytes # (Auto) 0.6 TH/MM3 Eosinophils # (Auto) 0.5 TH/MM3 Basophils # (Auto) 0.1 TH/MM3 CBC Comment DIFF FINAL Differential Comment Prothrombin Time 11.4 SEC Prothromb Time International 1.0 RATIO Ratio Activated Partial 27.8 SEC Thromboplast Time Sodium Level 141 MEQ/L Potassium Level 5.1 MEQ/L Chloride Level 107 MEQ/L Carbon Dioxide Level 29.8 MEQ/L Anion Gap 4 MEQ/L Blood Urea Nitrogen 20 MG/DL Creatinine 1.48 MG/DL Estimat Glomerular Filtration 45 ML/MIN Rate Random Glucose 95 MG/DL Calcium Level 9.3 MG/DL Troponin I 0.03 NG/ML MDM Supervised Visit with RHEA: No Interpretation(s) Last Impressions Head CT 08/04/16 0000 Signed Impressions: Service Date/Time: Thursday, August 04, 2016 06:49 - CONCLUSION: Chronic and small vessel ischemic changes without any evidence for acute hemorrhage or mass effect. Enrrique Hester MD 7:46 AM. CBC with hemoglobin 9.7 hematocrit 29.9. BUN 20. Creatinine 1.48. Diagnosis Primary Impression: Laceration of right ear Qualified Code: S01.311A - Laceration of right ear, initial encounter Additional Impression: Closed head injury Qualified Code: S09.90XA - Closed head injury, initial encounter Patient Instructions: General Instructions Additional Instruction: Rest. Ice pack tonight. Tylenol for pain. Daily wound care with soap, water, Neosporin. Sutures out in 7 days. Sunscreen and mederma for 6 months. Return to the ER for any problems. Disposition: 01 DISCHARGE HOME Condition: Stable Clay Herrera MD August 04, 2016 07:48
[2016-08-04 09:24] VITALS: BP 145/67; PULSE 52; RESP 18; O2SAT 100
--- NOTE | 2016-08-04 16:02 | EKG ---
Date Performed: 08/04/2016 Time Performed: 06:18:02 PTAGE: 89 years EKG: ELECTRONIC VENTRICULAR PACEMAKER ABNORMAL RHYTHM ECG Compared to the PREVIOUS TRACING PVCs and runs of nonsustained ventricular tachycardia have resolved, chela joyce is new PREVIOUS TRACIN06/24/2016 11.30 DOCTOR: Marcio Segovia Interpretating Date/Time 08/04/2016 16:00:59
== END 2016-08-04 09:47 | disposition home or self-care (01) ==
LOC: NEPC 06:15
DX: S01.311A Laceration without foreign body of right ear, initial encounter (principal); S09.90XA Unspecified injury of head, initial encounter; R94.31 Abnormal electrocardiogram [ECG] [EKG]; I10 Essential (primary) hypertension; W18.39XA Other fall on same level, initial encounter; Y93.01 Activity, walking, marching and hiking; Y92.009 Unspecified place in unspecified non-institutional (private) residence as the place of occurrence of the external cause; Z95.0 Presence of cardiac pacemaker; Z23 Encounter for immunization
CPT/HCPCS: 12011; 70450; 80048; 84484; 85025; 85610; 85730; 90471; 90714; 93005

== ENCOUNTER 2016-09-01 10:15 | Emergency (ER) | payer MEDICARE ==
[~2016-09-01] VITALS: Ht 170.2 cm; Wt 65.0 kg
[~2016-09-01 10:15] MED LIST changes: -CEPH250C PO; -CLOTR1%T LEFT EAR; +CYAN1TAB24 PO; +FERR1TAB58 PO; -FURO1TAB60 PO; +FURO20TA PO; +OMEG1CAP50 PO
[2016-09-01 10:17] VITALS: BP 146/66; PULSE 54; RESP 16; TEMP 97.5; O2SAT 99
[2016-09-01] MEDS ORDERED: traMADol/ACETAMINOPHEN 37.5/325 1 TAB PO ONE (10:45)
--- NOTE | 2016-09-01 10:45 | PD ---
HPI Chief Complaint: Fall Time Seen by Provider: 10:40 Travel History International Travel<30 days: No Contact w/Intl Traveler<30days: No Traveled to known affect area: No History of Present Illness HPI 89-year-old male with history of multiple medical issues, presents to the ER today because 3 days ago he states that he had slipped in the shower and fell onto his left flank area and is having pain in that area. He states it hurts with movement and especially with getting up now. He states the pain is a 9 out of 10. He has been ambulatory. He states that he did not fall all the way and was able to grab the guard rail. He denies any head injury or loss of consciousness. He denies any other injuries. Modifying Factors: None Associated Signs & Symptoms: Left flank pain, back injury Risk Factors: Elderly PFSH Past Medical History Hx Anticoagulant Therapy: Yes (ASA) Heart Rhythm Problems: Yes Cancer: Yes (ESOPHOGEAL) Cardiovascular Problems: Yes (RECENT PACEMAKER) Diminished Hearing: Yes Gastrointestinal Disorders: Yes Gout: Yes Genitourinary: Yes Hypertension: Yes Musculoskeletal: No Neurologic: No Reproductive: No Respiratory: Yes Past Surgical History Abdominal Surgery: Yes (ESOPHOGEAL- STOMACH SURGERY) Appendectomy: Yes Cardiac Surgery: Yes Cholecystectomy: Yes Pacemaker: Yes Tonsillectomy: Yes Other Surgery: Yes Social History Alcohol Use: No Tobacco Use: No Substance Use: No Allergies-Medications (Allergen,Severity, Reaction): 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) Reported Meds & Prescriptions Reported Meds & Active Scripts Active Coreg (Carvedilol) 3.125 Mg Tab 3.125 Mg PO Q12HR Reported Iron (Ferrous Sulfate) 50 Mg Tab 65 Mg PO DAILY B12 (Cyanocobalamin) 1,000 Mcg Tab 1,000 Mg PO DAILY [place] 3 500 500 mg ([place]-3 Fatty Acids) 1 Cap Cap 500 Mg PO DAILY Furosemide 20 Mg Tab 20 Mg PO DAILY Amiodarone (Amiodarone HCl) 200 Mg Tab 200 Mg PO DAILY Zyloprim (Allopurinol) 100 Mg Tab 100 Mg PO DAILY Protonix (Pantoprazole Sodium) 40 Mg Tab 40 Mg PO DAILY Gabapentin 300 Mg Cap 300 Mg PO DAILY Fosamax (Alendronate Sodium) 70 Mg Tab 70 Mg PO Q7D Coq10 (Coenzyme Q10 (Ubidecarenone)) 100 Mg Cap Aspirin 81 (Aspirin) 81 Mg Tabdr 81 Mg PO DAILY Mamie (Dutasteride-Tamsulosin) 0.5-0.4 Mg Cap 1 Cap PO DAILY Vitamin D3 (Cholecalciferol) 5,000 Unit Chew 5,000 Units CHEW DAILY Review of Systems Except as stated in HPI: all other systems reviewed are Neg Physical Exam Narrative GENERAL: Well-developed elderly white male patient currently in mild distress. Awake and oriented 3. SKIN: Focused skin assessment warm/dry. HEAD: Atraumatic. Normocephalic. EYES: Pupils equal and round. No scleral icterus. No injection or drainage. ENT: No nasal bleeding or discharge. Mucous membranes pink and moist. NECK: Trachea midline. No JVD. CARDIOVASCULAR: Regular rate and rhythm. No murmur appreciated. RESPIRATORY: No accessory muscle use. Clear to auscultation. Breath sounds equal bilaterally. GASTROINTESTINAL: Abdomen soft, non-tender, nondistended. Hepatic and splenic margins not palpable. MUSCULOSKELETAL: No obvious deformities. No clubbing. No cyanosis. No edema. BACK: Tenderness to palpation of the left lower back area close to the SI joint area with no obvious ecchymosis or deformities. No midline C, T, or L-spine tenderness on palpation. No rash. No point tenderness on palpation of the spine. Pelvis: Stable and nontender to palpation. NEUROLOGICAL: Awake and alert. No obvious cranial nerve deficits. Motor grossly within normal limits. Normal speech. PSYCHIATRIC: Appropriate mood and affect; insight and judgment normal. Data Data Last Documented VS Vital Signs Date Time Temp Pulse Resp B/P Pulse Ox O2 Delivery O2 Flow Rate FiO2 09/01/16 10:33 96 09/01/16 10:17 97.5 54 16 146/66 Orders Tramadol-Acetamin 37.5-325 Mg (Ultracet (09/01/16 10:45) Ct Lumb Spine W/O Contrast (09/01/16 10:40) Ct Pelvis W/O Iv Contrast (09/01/16 ) MDM Medical Decision Making Medical Screen Exam Complete: Yes Emergency Medical Condition: Yes Medical Record Reviewed: Yes Differential Diagnosis Fall, lower back painscontusions versus fracture versus strain Narrative Course CAT scan of the L-spine and pelvis did not show any signs of acute fractures or injuries. At this point, symptoms are likely secondary to contusion and my plan would be to release him with further symptomatic relief or pain and follow- up to primary care physician. Return for any worsening in pain or new symptoms as needed. The plan has been discussed with him and he states understanding. Diagnosis Primary Impression: Contusion of lower back Med/Other Pt SpecificInfo: Prescription(s) given Scripts Tramadol 50 Mg Tab50 Mg PO Q4H PRN (PAIN) #15 TAB Ref 0 Prov:Ace Bowles MD 09/01/16 Disposition: 01 DISCHARGE HOME Condition: Stable Ace Bowles MD Sep 01, 2016 10:45
--- NOTE | 2016-09-01 11:51 | RADRPT ---
EXAM DATE/TIME: 09/01/2016 11:22 [facility] COMPARISON: No previous studies available for comparison. INDICATIONS : Trauma. Fall. Low back pain. RADIATION DOSE: 17.32 CTDIvol (mGy) MEDICAL HISTORY : Cardiovascular disease. Carcinoma, esophageal. Hypertension. SURGICAL HISTORY : None. ENCOUNTER: Initial ACUITY: 4 - 6 days PAIN SCALE: 4/10 LOCATION: Lumbar spine TECHNIQUE: Volumetric scanning of the lumbar spine was performed. Multiplanar reconstructions in the sagittal, coronal and oblique axial planes were performed. Using automated exposure control and adjustment of the mA and/or kV according to patient size, radiation dose was kept as low as reasonably achievable t o obtain optimal diagnostic quality images. FINDINGS: Alignment: A mild scoliotic curvature convex to the left in the lower lumbar spine is noted. Minimal anterolisth esis is noted of L5 and S1. Lumbar dual bodies are otherwise satisfactory alignment. Osseous structures and facet joints: Vertebral bodies and posterior elements are intact without evidence of acute fracture. Moderate facet arthropathy is evident at L4-5 and L5-S1. There is evidence of joint space narrowing s ubchondral sclerosis and bony hypertrophy. Intervertebral disc spaces: Mild to moderate degenerative changes are noted. There is mild disc space narrowing with marginal spo ndylosis. Vacuum disc is identified at L5-S1. There is no evidence of epidural disc herniation. Neurologic structures: Spinal canal is widely patent without evidence of stenosis. There is no evidence of significant bebe inal encroachment. CONCLUSION: No evidence of acute fracture. Moderate facet arthropathy at L4-5 resulting in mild anterolisthesis. Moderate facet arthropathy at L5-S1. Mild to moderate degenerative disc disease. No evidence of disc herniation, spinal stenosis or foraminal encroachment. Zeus Marr MD on September 01, 2016 at 11:45 Board Certified Radiologist. This report was verified electronically.
--- NOTE | 2016-09-01 12:00 | RADRPT ---
EXAM DATE/TIME: 09/01/2016 11:27 [facility] COMPARISON: No previous studies available for comparison. INDICATIONS : Trauma. Fall. Left pelvic pain. ORAL CONTRAST: No oral contrast ingested. RADIATION DOSE: 10.55 CTDIvol (mGy) MEDICAL HISTORY : Cardiovascular disease. Carcinoma, esophageal. Hypertension. SURGICAL HISTORY : None. ENCOUNTER: Initial ACUITY: 4 - 6 days PAIN SCALE: 7/10 LOCATION: Left pelvis TECHNIQUE: Volumetric scanning of the pelvis was performed. Using automated exposure control and adjustment of the mA and/or kV according to patient size, radiation dose was kept as low as reasonably achievable t o obtain optimal diagnostic quality images. FINDINGS: BOWEL/MESENTERY: Uncomplicated sigmoid diverticulosis is noted. BLADDER: There is no wall thickening or mass. RETROPERITONEUM: There is no aneurysm or lymphadenopathy. REPRODUCTIVE: Within normal limits. INGUINAL: There is no lymphadenopathy or hernia. MUSCULOSKELETAL: Within normal limits for patient age. No fracture or dislocation noted. CONCLUSION: 1. No evidence of fracture or dislocation of the bony pelvis. 2. Uncomplicated sigmoid diverticulosis. Nacho Rivera MD on September 01, 2016 at 11:54 Board Certified Radiologist. This report was verified electronically.
[2016-09-01] MEDS ORDERED: TRAM50TA PO (12:09)
== END 2016-09-01 13:00 | disposition home or self-care (01) ==
LOC: NEPC 10:15
DX: S30.0XXA Contusion of lower back and pelvis, initial encounter (principal); W18.2XXA Fall in (into) shower or empty bathtub, initial encounter; Y93.E1 Activity, personal bathing and showering; Y92.002 Bathroom of unspecified non-institutional (private) residence as the place of occurrence of the external cause; Z79.01 Long term (current) use of anticoagulants; I10 Essential (primary) hypertension
CPT/HCPCS: 72131; 72192; 99284

== ENCOUNTER 2016-11-22 13:22 | Emergency (ER) | payer MEDICARE ==
[~2016-11-22 13:22] MED LIST changes: +TRAM50TA PO
[2016-11-22 13:25] VITALS: BP 162/72; PULSE 55; RESP 14; TEMP 98.4; O2SAT 98
[2016-11-22] MEDS ORDERED: FERR325T8 PO (13:38)
[2016-11-22] MEDS ORDERED: COEN100C PO (13:38)
[2016-11-22] MEDS ORDERED: ACETAMINOPHEN/HYDROcodone 325 MG/5 MG TAB PO ONE (14:00)
--- NOTE | 2016-11-22 14:09 | PD ---
HPI . Low back pain Chief Complaint: Back/ Neck Pain or Injury Time Seen by Provider: 13:53 Travel History International Travel<30 days: No Contact w/Intl Traveler<30days: No Traveled to known affect area: No History of Present Illness HPI This patient presents with the chief complaint of low back pain. He reports symptoms for the last couple of days but the symptoms became acutely worse today. He reports that he is not able to ambulate today secondary pain. He states that he has no pain at all when he is lying down. However, when he tries to stand or walk, the pain is so severe that he can't move. He denies any known acute injury. His states that he has slid to the ground a couple of times in the recent past but reported no pain and refused evaluation. He did not start complaining with low back pain until several days after his latest slip to the ground. Pain has not improved with ibuprofen. He has had no systemic symptoms such as fever or nausea. PFSH Past Medical History Hx Anticoagulant Therapy: Yes (ASA) Arthritis: Yes Heart Rhythm Problems: Yes Cancer: Yes (ESOPHOGEAL) Cardiovascular Problems: Yes (RECENT PACEMAKER) Diminished Hearing: Yes Gastrointestinal Disorders: Yes GERD: Yes Gout: Yes Genitourinary: Yes Hiatal Hernia: Yes Hypertension: Yes Immune Disorder: No Musculoskeletal: No Neurologic: No Reproductive: No Respiratory: Yes Radiation Therapy: No Tetanus Vaccination: < 5 Years Past Surgical History Abdominal Surgery: Yes (ESOPHOGEAL- STOMACH SURGERY) Appendectomy: Yes Cardiac Surgery: Yes Cholecystectomy: Yes Pacemaker: Yes Thoracic Surgery: Yes (ESOPHAGECTOMY) Tonsillectomy: Yes Other Surgery: Yes Social History Alcohol Use: No Tobacco Use: No Substance Use: No Allergies-Medications (Allergen,Severity, Reaction): 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) Reported Meds & Prescriptions Reported Meds & Active Scripts Active Coreg (Carvedilol) 3.125 Mg Tab 3.125 Mg PO Q12HR Reported Coenzyme Q10 (Ubidecarenone) 100 Mg Cap 100 Mg PO DAILY Ferrous Sulfate 325 Mg (65 Mg Iron) Tablet 65 Mg PO DAILY B12 (Cyanocobalamin) 1,000 Mcg Tab 1,000 Mg PO DAILY [place] 3 500 500 mg ([place]-3 Fatty Acids) 1 Cap Cap 500 Mg PO DAILY Furosemide 20 Mg Tab 20 Mg PO DAILY Amiodarone (Amiodarone HCl) 200 Mg Tab 200 Mg PO DAILY Zyloprim (Allopurinol) 100 Mg Tab 100 Mg PO DAILY Protonix (Pantoprazole Sodium) 40 Mg Tab 40 Mg PO DAILY Gabapentin 300 Mg Cap 300 Mg PO DAILY Fosamax (Alendronate Sodium) 70 Mg Tab 70 Mg PO Q7D Coq10 (Coenzyme Q10 (Ubidecarenone)) 100 Mg Cap Aspirin 81 (Aspirin) 81 Mg Tabdr 81 Mg PO DAILY Mamie (Dutasteride-Tamsulosin) 0.5-0.4 Mg Cap 1 Cap PO DAILY Vitamin D3 (Cholecalciferol) 5,000 Unit Chew 5,000 Units CHEW DAILY Review of Systems Except as stated in HPI: all other systems reviewed are Neg General / Constitutional: No: Fever, Chills HENT: No: Headaches Cardiovascular: No: Chest Pain or Discomfort Respiratory: No: Shortness of Breath Gastrointestinal: No: Nausea Musculoskeletal: Positive: Myalgias, Arthralgias, Pain, No: Limited ROM, Edema Physical Exam Narrative GENERAL: Elderly man lying comfortably on the stretcher in no acute distress. SKIN: warm/dry. He has a dressing in the sacral area. His states that he is being treated by a customer advisor specialist for this. HEAD: Normocephalic. EYES: Pupils equal and round. No scleral icterus. No injection or drainage. ENT: No nasal bleeding or discharge. Mucous membranes pink and moist. NECK: Trachea midline. Full range of motion without pain.. CARDIOVASCULAR: Regular rate and rhythm. RESPIRATORY: No accessory muscle use. Clear to auscultation. Breath sounds equal bilaterally. GASTROINTESTINAL: No pulsatile abdominal mass. Nondistended. Nontender. MUSCULOSKELETAL: No obvious deformities. I am unable to elicit any tenderness to palpation over the SI joints. He has no pain with log rolling of his hips. NEUROLOGICAL: Awake and alert. No obvious cranial nerve deficits. Motor grossly within normal limits. Normal speech. PSYCHIATRIC: Appropriate mood and affect; insight and judgment normal. Data Data Last Documented VS Vital Signs Date Time Temp Pulse Resp B/P (MAP) Pulse Ox O2 Delivery O2 Flow Rate FiO2 11/22/16 13:25 98.4 55 14 162/72 (102) [address] Pelvis W/O Iv Contrast (11/22/16 ) Acetamin-Hydrocod 325-5 Mg ([place] 5-325 (11/22/16 14:00) MDM Medical Decision Making Medical Screen Exam Complete: Yes Emergency Medical Condition: Yes Differential Diagnosis Differential diagnosis of joint pain includes but is not limited to arthritis, gout, sprain/strain, fracture, dislocation, bursitis Narrative Course This patient presents with bilateral SI joint pain but no tenderness on physical exam. CT of the pelvis is pending. Last Impressions Pelvis CT 11/22/16 0000 Signed Impressions: Service Date/Time: Tuesday, November 22, 2016 14:53 - CONCLUSION: Nondisplaced oblique fracture through the left S1 sacral segment. Significant osteopenia is evident. Jeremiah Ray MD FACR This patient is alread receiving PT and OT therapy at home per [facility]. Our supervisor case loading will contact [facility] to let them know of the new fracture. The patient will be discharged home with prescription for [place]. Follow with orthopedics. Diagnosis Primary Impression: Sacral fracture, closed Qualified Codes: S32.10XA - Unspecified fracture of sacrum, initial encounter for closed fracture Referrals: Ten King MD Patient Instructions: General Instructions, Narcotic given in the ED, Sacral Fracture (DC) Med/Other Pt SpecificInfo: Prescription(s) given Scripts Hydrocodone-Acetaminophen ([place]) 5-325 mg Tab 1 TAB PO Q4H Y for PAIN, #12 TAB 0 Refills Prov: Kelsy Leigh MD 11/22/16 Disposition: 01 DISCHARGE HOME Condition: Stable Kelsy Leigh MD Nov 22, 2016 14:09
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
[2016-11-22] MEDS ORDERED: NORC5TAB PO (16:32)
--- NOTE | 2016-11-22 16:37 | HHI.FF ---
Face to Face Verification Diagnosis: (1) Sacral fracture, closed Physical Therapy Order: Evaluate and Treat, Improve ambulation, Strength and gait training Instructions: Sacral fracture on the left Occupational Therapy Order: Evaluate and Treat, Gross motor coordination Instructions: sacral fracture on the left I have seen patient Nacho Webster on 11/22/16. My clinical findings support the need for the requested home health care services because: new fracture involving the left side of his sacrum Ltd mobility - disease progression Limited ability to care for self High risk of falls I certify that my clinical findings support that this patient is homebound because: new sacral fx on the left Unsteady gait/balance Unsafe to leave home unassisted Kelsy Leigh MD Nov 22, 2016 16:37
[2016-11-22 17:34] VITALS: BP 139/87
== END 2016-11-22 17:34 | disposition home or self-care (01) ==
LOC: NEPC 13:22
DX: S32.10XA Unspecified fracture of sacrum, initial encounter for closed fracture (principal); W19.XXXA Unspecified fall, initial encounter; I10 Essential (primary) hypertension; K21.9 Gastro-esophageal reflux disease without esophagitis; M19.90 Unspecified osteoarthritis, unspecified site; Z95.0 Presence of cardiac pacemaker; Z79.82 Long term (current) use of aspirin
CPT/HCPCS: 72192; 99284

== ENCOUNTER 2016-11-30 17:44 | Emergency (ER) | payer MEDICARE ==
[~2016-11-30] VITALS: Ht 170.2 cm; Wt 68.0 kg
[~2016-11-30 17:44] MED LIST changes: +COEN100C PO; -FERR1TAB58 PO; +FERR325T8 PO; +NORC5TAB PO; -TRAM50TA PO
[2016-11-30 17:47] VITALS: BP 179/83; PULSE 82; RESP 16; TEMP 97.5; O2SAT 98
[2016-11-30] MEDS ORDERED: ROPI.5 PO (19:39)
[2016-11-30 20:10] LABS: AUTOMATED NEUTROPHIL # 5.7 TH/MM3 (1.8-7.7); BASOPHIL # 0.1 TH/MM3 (0-0.2); BASOPHIL % 1.4 % (0.0-2.0); EOSINOPHIL # 0.3 TH/MM3 (0-0.4); EOSINOPHIL % 3.7 % (0.0-4.0); HEMATOCRIT 38.1 % (39.0-51.0); HEMO FLAGS DIFF FINAL; LYMPH % 12.7 % (9.0-44.0); MEAN CELL VOLUME 87.6 FL (80.0-100.0); MEAN CORPUSCULAR HEMOGLOBIN 28.8 PG (27.0-34.0); MEAN CORPUSCULAR HGB CONC 32.9 % (32.0-36.0); MONO % 12.1 % (0.0-8.0); NEUT % 70.1 % (16.0-70.0); PLATELET COUNT 204 TH/MM3 (150-450); RED BLOOD COUNT 4.34 MIL/MM3 (4.50-5.90); RED CELL DISTRIBUTION WIDTH 16.5 % (11.6-17.2); WHITE BLOOD COUNT 8.1 TH/MM3 (4.0-11.0)
[2016-11-30 20:12] LABS: BACTERIA, URINE OCC /hpf; BLOOD, URINE NEG (NEG); GLUCOSE,URINE NEG (NEG); HYALINE CAST, URINE 7 /lpf (RARE); KETONE, URINE NEG (NEG); MUCUS URINE FEW /lpf (OCC); NITRITE,URINE NEG (NEG); URINE COLOR LIGHT-YELLOW (YELLW/STRAW)
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
--- NOTE | 2016-11-30 20:17 | RADRPT ---
EXAM DATE/TIME: 11/30/2016 19:47 [facility] COMPARISON: CT PULMONARY ANGIOGRAM, March 16, 2015, 13:23. CHEST SINGLE AP, June 25, 2016, 17:13. INDICATIONS : Short of breath. MEDICAL HISTORY : Congestive heart failure. Hypotension, aortic valve stenosis, gout. SURGICAL HISTORY : Pacemaker. Aortic valve replacement ENCOUNTER: Initial ACUITY: 2 days PAIN SCORE: 0/10 LOCATION: Bilateral chest FINDINGS: The heart size is upper limits of normal. There is an aortic valve prosthesis/graft in place. There i s a 1 cm focal density in the right suprahilar region. There is prominence of the right hilum. The le ft hilum appears normal in size There is interstitial prominence at the bases. Pleural calcifications are seen bilaterally. Clips are seen in the upper abdomen. There is a bi-lead pacemaker in place. CONCLUSION: 1. 1 cm focal density in the right suprahilar region and prominence of the right hilum. These areas s hould be further evaluated with CT examination of the chest ideally with contrast. 2. Interstitial prominence at the bases. Ludin Barkley MD on November 30, 2016 at 20:12 Board Certified Radiologist. This report was verified electronically.
[2016-11-30 20:39] LABS: ANION GAP 9 MEQ/L (5-15); AST (GOT) 18 U/L (15-37); BICARBONATE 28.5 MEQ/L (21.0-32.0); BLOOD UREA NITROGEN 22 MG/DL (7-18); CHLORIDE 102 MEQ/L (98-107); GLOMERULAR FILTRATION RATE 47 ML/MIN (>89); POTASSIUM 3.5 MEQ/L (3.5-5.1); SODIUM (NA) 139 MEQ/L (136-145)
[2016-11-30 20:40] LABS: ALT (GPT) 17 U/L (12-78)
[2016-11-30 20:43] LABS: ALKALINE PHOSPHATASE 89 U/L (45-117); TOTAL BILIRUBIN ADULT 0.9 MG/DL (0.2-1.0)
[2016-11-30 21:28] VITALS: BP 195/103; PULSE 66; RESP 20; O2SAT 97
[2016-11-30] MEDS ORDERED: FUROSEMIDE 40 MG/4 ML VIAL IV PUSH ONE (21:30)
[2016-11-30] MEDS ORDERED: ENALAPRILAT 1.25 MG/ML VIAL IV PUSH ONE (21:45)
[2016-11-30] MEDS ORDERED: ASPIRIN 325 MG TAB PO ONE (21:45)
[2016-11-30 22:49] VITALS: BP 184/84; PULSE 65; RESP 20; O2SAT 98
[2016-11-30 23:42] VITALS: BP 180/80
--- NOTE | 2016-12-01 13:50 | EKG ---
Date Performed: 11/30/2016 Time Performed: 19:53:32 PTAGE: 89 years EKG: Sinus rhythm WITH FIRST DEGREE AV BLOCK WITH FREQUENT VENTRICULAR PREMATURE COMPLEXES MARKED LEFT AXIS DEVIATION INTRAVENTRICULAR CONDUCTION DELAY ABNORMAL ECG PREVIOUS TRACING : 08/04/2016 06.18 Patient appears to have intermittent AV node conduction, bu t with backup VVI pacing. I see no evidence of the pacemaker's tracking atrial activity, so if this i s a dual chamber device, it is not functioning appropriately. Since the prior tracing, there appears to be more intrinsic conduction, but otherwise no significant serial change. DOCTOR: Zhanna Bravo Interpretating Date/Time 12/01/2016 13:49:15
== END 2016-11-30 23:44 | disposition left against medical advice (07) ==
LOC: NEPD 17:44
DX: R53.1 Weakness (principal); I44.0 Atrioventricular block, first degree; I49.3 Ventricular premature depolarization; R06.02 Shortness of breath; R94.31 Abnormal electrocardiogram [ECG] [EKG]; K21.9 Gastro-esophageal reflux disease without esophagitis; I11.0 Hypertensive heart disease with heart failure; R60.9 Edema, unspecified; M19.90 Unspecified osteoarthritis, unspecified site
CPT/HCPCS: 71010; 80053; 81001; 83880; 84484; 85025; 93005; 96374; 96375; 99285; J1940

== ENCOUNTER 2017-03-13 12:48 | Emergency (ER) | payer MEDICARE ==
[~2017-03-13] VITALS: Ht 170.2 cm; Wt 62.5 kg
[~2017-03-13 12:48] MED LIST changes: -ASPI-110 PO; +ASPI1TAB57 PO; +FERR325T18 PO; -FERR325T8 PO; +ROPI.5 PO
[2017-03-13 12:49] VITALS: BP 129/59; PULSE 55; RESP 14; TEMP 97.5; O2SAT 97
--- NOTE | 2017-03-13 13:26 | PD ---
HPI Chief Complaint: Wound/Suture/Staple Re-Check Time Seen by Provider: 12:55 Travel History International Travel<30 days: No Contact w/Intl Traveler<30days: No Traveled to known affect area: No History of Present Illness HPI This is a 89-year-old male with a history of aortic stenosis with TAVR procedure , cardiomyopathy, ventricular tachycardia, who presents with with complaints of worsening left heel pain and dark coloration. The patient's states that they have a home health nurse at home who has been seen and putting dressing on his left heel. states that the home health nurse was there yesterday. states that it is progressively gotten more painful and red. Last night they're unable to sleep secondary to his severe pain of his left heel. There is no reported fevers, chills. There are no other complaints at the time of my examination. 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) Endocrine: No Gastrointestinal Disorders: Yes GERD: Yes Gout: Yes Genitourinary: Yes Hiatal Hernia: Yes Hypertension: Yes Immune Disorder: No Musculoskeletal: No Neurologic: No Psychiatric: No Reproductive: No Respiratory: No Radiation Therapy: No Tetanus Vaccination: < 5 Years Past Surgical History Abdominal Surgery: Yes (ESOPHOGEAL- STOMACH SURGERY) Appendectomy: Yes Cardiac Surgery: Yes (TAVR JUNE 25, 2015 , PACEMAKER [employer] ) Cholecystectomy: Yes Pacemaker: Yes Thoracic Surgery: Yes (ESOPHAGECTOMY) Tonsillectomy: Yes Other Surgery: Yes Social History Alcohol Use: No Tobacco Use: No Substance Use: No Allergies-Medications (Allergen,Severity, Reaction): Coded Allergies: *MDRO Multi-Drug Resistant Organism (Verified Adverse Reaction, Unknown, 03/13/17) 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) Reported Meds & Prescriptions Reported Meds & Active Scripts Active Lorcet (Hydrocodone-Acetaminophen) 5-325 mg Tab 1 Tab PO Q6H PRN Keflex (Cephalexin) 500 Mg Capsule 500 Mg PO QID 10 Days Coreg (Carvedilol) 3.125 Mg Tab 3.125 Mg PO Q12HR Reported Vitamin D3 (Cholecalciferol) 5,000 Unit Cap 5,000 Units PO DAILY Coenzyme Q10 (Ubidecarenone) 100 Mg Cap 100 Mg PO DAILY Ferrous Sulfate 325 Mg (65 Mg Iron) Tablet 65 Mg PO DAILY B12 (Cyanocobalamin) 1,000 Mcg Tab 1,000 Mg PO DAILY [place] 3 500 500 mg ([place]-3 Fatty Acids) 1 Cap Cap 500 Mg PO DAILY Furosemide 20 Mg Tab 20 Mg PO DAILY Amiodarone (Amiodarone HCl) 200 Mg Tab 200 Mg PO DAILY Zyloprim (Allopurinol) 100 Mg Tab 100 Mg PO DAILY Protonix (Pantoprazole Sodium) 40 Mg Tab 40 Mg PO DAILY Gabapentin 300 Mg Cap 300 Mg PO HS Fosamax (Alendronate Sodium) 70 Mg Tab 70 Mg PO Q7D Aspirin 81 (Aspirin) 81 Mg Tabdr 81 Mg PO DAILY Mamie (Dutasteride-Tamsulosin) 0.5-0.4 Mg Cap 1 Cap PO DAILY Review of Systems Except as stated in HPI: all other systems reviewed are Neg General / Constitutional: No: Fever, Chills HENT: No: Headaches, Neck Pain Cardiovascular: No: Chest Pain or Discomfort, Irregular Rhythm Respiratory: No: Cough, Shortness of Breath Gastrointestinal: No: Nausea, Vomiting, Abdominal Pain Musculoskeletal: Positive: Weakness (chronic), Edema, Pain (left heel), Other ( increased redness left heel) Skin: Positive Lesions (black pressure wound to left heel with increased redness and pain.) Neurologic: Positive: Weakness, No: Headache (chronic) Physical Exam Narrative GENERAL: Elderly weak-appearing male in no acute rest her distress. SKIN: Focused skin assessment warm/dry. HEAD: Atraumatic. Normocephalic. EYES: No scleral icterus. No injection or drainage. ENT: No nasal bleeding or discharge. Mucous membranes pink and moist. NECK: Trachea midline. Supple. CARDIOVASCULAR: Regular rate and rhythm. No murmur appreciated. RESPIRATORY: No accessory muscle use. Clear to auscultation. Breath sounds equal bilaterally. GASTROINTESTINAL: Abdomen soft, non-tender, nondistended. MUSCULOSKELETAL: No obvious deformities. On examination of the heel the left foot, there is dark black coloration with surrounding erythema concerning for cellulitis. There is no drainage at this time however there is a central area of blanching. NEUROLOGICAL: Awake and weak and mildly confused. No obvious cranial nerve deficits. Motor grossly within normal limits. Data Data Last Documented VS Vital Signs Date Time Temp Pulse Resp B/P (MAP) Pulse Ox O2 Delivery O2 Flow Rate FiO2 03/13/17 13:53 52 18 100 Room Air 03/13/17 12:49 97.5 Orders Orders Complete Blood Count With Diff (03/13/17 13:12) Comprehensive Metabolic Panel (03/13/17 13:12) Blood Culture (03/13/17 13:12) Iv Access Insert/Monitor (03/13/17 13:12) Ecg Monitoring (03/13/17 13:12) Oximetry (03/13/17 13:12) Foot, Heel Only ([id number]) (03/13/17 ) Labs Laboratory Tests Test 03/13/17 13:41 White Blood Count 11.0 TH/MM3 Red Blood Count 3.45 MIL/MM3 Hemoglobin 9.9 GM/DL Hematocrit 29.0 % Mean Corpuscular Volume 84.2 FL Mean Corpuscular Hemoglobin 28.8 PG Mean Corpuscular Hemoglobin Concent 34.2 % Red Cell Distribution Width 18.2 % Platelet Count 234 TH/MM3 Mean Platelet Volume 9.0 FL Neutrophils (%) (Auto) 81.8 % Lymphocytes (%) (Auto) 6.1 % Monocytes (%) (Auto) 8.8 % Eosinophils (%) (Auto) 2.4 % Basophils (%) (Auto) 0.9 % Neutrophils # (Auto) 9.0 TH/MM3 Lymphocytes # (Auto) 0.7 TH/MM3 Monocytes # (Auto) 1.0 TH/MM3 Eosinophils # (Auto) 0.3 TH/MM3 Basophils # (Auto) 0.1 TH/MM3 CBC Comment DIFF FINAL Differential Comment Blood Urea Nitrogen 20 MG/DL Creatinine 1.41 MG/DL Random Glucose 111 MG/DL Total Protein 6.8 GM/DL Albumin 2.6 GM/DL Calcium Level 9.1 MG/DL Alkaline Phosphatase 66 U/L Aspartate Amino Transf (AST/SGOT) 12 U/L Alanine Aminotransferase (ALT/SGPT) 13 U/L Total Bilirubin 0.9 MG/DL Sodium Level 138 MEQ/L Potassium Level 4.0 MEQ/L Chloride Level 102 MEQ/L Carbon Dioxide Level 31.6 MEQ/L Anion Gap 4 MEQ/L Estimat Glomerular Filtration Rate 47 ML/MIN MDM Medical Decision Making Medical Screen Exam Complete: Yes Emergency Medical Condition: Yes Differential Diagnosis Cellulitis versus pressure wound versus osteomyelitis Narrative Course 89-year-old male presents today with complaints of left heel pain. The patient has a pressure ulcer on his left heel that home health nurses evaluating. states that last night he had significant pain in his left heel and had difficulty sleeping. His been no reported fevers, chills. White blood cell counts within normal limits. The patient has redness surrounding the pressure area. It is a stage I possible early stage II pressure ulcer at this time. is at the bedside states that the home health nurse will see the patient tomorrow. She requests that we write instructions for the dressing on the patient's heel. The patient be started on Keflex just in case there is early cellulitis. Also be given a prescription for Lorcet 07/22/24 for discomfort. He is instructed to be careful with using these medicines. is instructed to return if the pain gets worse or there is worse redness or drainage. Diagnosis Primary Impression: Pressure ulcer of left heel, stage 1 Additional Impression: Pain of left heel Additional Instructions: Tegaderm and bulk dressing to the left heel. Return if increased pain, redness , drainage, or any other reason concerned. Scripts Hydrocodone-Acetaminophen (Lorcet) 5-325 mg Tab 1 TAB PO Q6H Y for PAIN, #20 TAB 0 Refills Prov: Lokesh Francis MD 03/13/17 Cephalexin (Keflex) 500 Mg Capsule 500 MG PO QID for Infection for 10 Days, CAP 0 Refills Prov: Lokesh Francis MD 03/13/17 Disposition: 01 DISCHARGE HOME Condition: Stable Lokesh Francis MD Mar 13, 2017 13:26
[2017-03-13 13:53] VITALS: PULSE 52; RESP 18; O2SAT 100
[2017-03-13 13:58] LABS: BASOPHIL # 0.1 TH/MM3 (0-0.2); BASOPHIL % 0.9 % (0.0-2.0); EOSINOPHIL # 0.3 TH/MM3 (0-0.4); EOSINOPHIL % 2.4 % (0.0-4.0); HEMOGLOBIN 9.9 GM/DL (13.0-17.0); LYMPH % 6.1 % (9.0-44.0); LYMPHOCYTE # 0.7 TH/MM3 (1.0-4.8); MEAN CELL VOLUME 84.2 FL (80.0-100.0); MEAN CORPUSCULAR HEMOGLOBIN 28.8 PG (27.0-34.0); MEAN CORPUSCULAR HGB CONC 34.2 % (32.0-36.0); MONO % 8.8 % (0.0-8.0); NEUT % 81.8 % (16.0-70.0); PLATELET COUNT 234 TH/MM3 (150-450); RED BLOOD COUNT 3.45 MIL/MM3 (4.50-5.90); RED CELL DISTRIBUTION WIDTH 18.2 % (11.6-17.2)
[2017-03-13] MEDS ORDERED: CHOL5000 PO (13:59)
[2017-03-13 14:16] LABS: ALBUMIN 2.6 GM/DL (3.4-5.0); AST (GOT) 12 U/L (15-37); BICARBONATE 31.6 MEQ/L (21.0-32.0); BLOOD UREA NITROGEN 20 MG/DL (7-18); CALCIUM 9.1 MG/DL (8.5-10.1); CHLORIDE 102 MEQ/L (98-107); CREATININE 1.41 MG/DL (0.60-1.30); GLOMERULAR FILTRATION RATE 47 ML/MIN (>89); GLUCOSE,RANDOM 111 MG/DL (74-106); SODIUM (NA) 138 MEQ/L (136-145)
[2017-03-13 14:17] LABS: ALT (GPT) 13 U/L (12-78)
[2017-03-13 14:19] LABS: ALKALINE PHOSPHATASE 66 U/L (45-117); TOTAL BILIRUBIN ADULT 0.9 MG/DL (0.2-1.0); TOTAL PROTEIN 6.8 GM/DL (6.4-8.2)
--- NOTE | 2017-03-13 14:41 | RADRPT ---
EXAM DATE/TIME: 03/13/2017 14:18 [facility] COMPARISON: No previous studies available for comparison. INDICATIONS : Blistering, infection on posterior surface of left heel for 1 week MEDICAL HISTORY : None. SURGICAL HISTORY : None. ENCOUNTER: Initial ACUITY: 1 week PAIN SCORE: 5/10 LOCATION: Left posterior heel FINDINGS: Two view examination of the left heel demonstrates the trabecula to be intact with no evidence of fra cture. There is a normal calcaneal angle. The soft tissues are of normal thickness. CONCLUSION: Negative for navya myelitis. Jeremiah Ray MD FACR on March 13, 2017 at 14:38 Board Certified Radiologist. This report was verified electronically.
[2017-03-13] MEDS ORDERED: HYDR-3576 PO (15:19)
[2017-03-13] MEDS ORDERED: CEPH-460 PO (15:19)
== END 2017-03-13 16:07 | disposition home or self-care (01) ==
LOC: NEPE 12:48
DX: L89.621 Pressure ulcer of left heel, stage 1 (principal); I47.2 Ventricular tachycardia; I35.0 Nonrheumatic aortic (valve) stenosis; I11.0 Hypertensive heart disease with heart failure; I50.9 Heart failure, unspecified; K21.9 Gastro-esophageal reflux disease without esophagitis; M10.9 Gout, unspecified; M19.90 Unspecified osteoarthritis, unspecified site; Z79.82 Long term (current) use of aspirin
CPT/HCPCS: 73650; 80053; 85025; 87040; 99285

== ENCOUNTER 2017-04-28 14:57 | Emergency (ER) | payer MEDICARE ==
[~2017-04-28] VITALS: Ht 167.6 cm; Wt 70.0 kg
[~2017-04-28 14:57] MED LIST changes: +CHOL5000 PO; -COQ1100C; +HYDR-3576 PO; +LEVA750T9 PO; -NORC5TAB PO; -ROPI.5 PO; -VITA500030 CHEW
[2017-04-28 15:05] VITALS: BP 115/54; PULSE 60; RESP 16; TEMP 98.7; O2SAT 95
[2017-04-28] MEDS ORDERED: SODIUM CHLORID 0.9% 500 ML INJ 500 ML IV ONE (15:45)
[2017-04-28 15:55] VITALS: BP 114/53; PULSE 60; RESP 14; O2SAT 97
--- NOTE | 2017-04-28 16:07 | PD ---
HPI Chief Complaint: Abnormal Results Time Seen by Provider: 15:12 Travel History International Travel<30 days: No Contact w/Intl Traveler<30days: No Traveled to known affect area: No History of Present Illness HPI 89-year-old male hard of hearing presents to the emergency department at the request of his for low blood pressure. States that his blood pressure was 70 systolic. Patient denies fever, chills, chest pain, shortness breath, abdominal pain, back pain. States he does have a pacemaker but denies history of MIs. Says he has a remote history congestive heart failure but is unable to tell me anymore information on this. His is not present for further information. 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) Endocrine: No Gastrointestinal Disorders: Yes GERD: Yes Gout: Yes Genitourinary: Yes Hiatal Hernia: Yes Hypertension: Yes Tetanus Vaccination: < 5 Years Influenza Vaccination: No Past Surgical History Abdominal Surgery: Yes (ESOPHOGEAL- STOMACH SURGERY) Appendectomy: Yes Cardiac Surgery: Yes (TAVR JUNE 25, 2015 , PACEMAKER [employer] ) Cholecystectomy: Yes Pacemaker: Yes Thoracic Surgery: Yes (ESOPHAGECTOMY) Tonsillectomy: Yes Other Surgery: Yes Social History Alcohol Use: No Tobacco Use: No Substance Use: No Allergies-Medications (Allergen,Severity, Reaction): 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) Reported Meds & Prescriptions Reported Meds & Active Scripts Active Levaquin (Levofloxacin) 750 Mg Tablet 750 Mg PO DAILY Lorcet (Hydrocodone-Acetaminophen) 5-325 mg Tab 1 Tab PO Q6H PRN Coreg (Carvedilol) 3.125 Mg Tab 3.125 Mg PO Q12HR Reported Vitamin D3 (Cholecalciferol) 5,000 Unit Cap 5,000 Units PO DAILY Coenzyme Q10 (Ubidecarenone) 100 Mg Cap 100 Mg PO DAILY Ferrous Sulfate 325 Mg (65 Mg Iron) Tablet 65 Mg PO DAILY B12 (Cyanocobalamin) 1,000 Mcg Tab 1,000 Mg PO DAILY [place] 3 500 500 mg ([place]-3 Fatty Acids) 1 Cap Cap 500 Mg PO DAILY Furosemide 20 Mg Tab 20 Mg PO DAILY Amiodarone (Amiodarone HCl) 200 Mg Tab 200 Mg PO DAILY Zyloprim (Allopurinol) 100 Mg Tab 100 Mg PO DAILY Protonix (Pantoprazole Sodium) 40 Mg Tab 40 Mg PO DAILY Gabapentin 300 Mg Cap 300 Mg PO HS Fosamax (Alendronate Sodium) 70 Mg Tab 70 Mg PO Q7D Aspirin 81 (Aspirin) 81 Mg Tabdr 81 Mg PO DAILY Mamie (Dutasteride-Tamsulosin) 0.5-0.4 Mg Cap 1 Cap PO DAILY Review of Systems Except as stated in HPI: all other systems reviewed are Neg Physical Exam Narrative GENERAL: WD, WN in NAD SKIN: Focused skin assessment warm/dry. HEAD: Atraumatic. Normocephalic. EYES: Pupils equal and round. No scleral icterus. No injection or drainage. ENT: No nasal bleeding or discharge. Mucous membranes pink and moist. NECK: Trachea midline. No JVD. No lymphadenopathy CARDIOVASCULAR: Regular rate and rhythm. No murmur appreciated. RESPIRATORY: No accessory muscle use. Clear to auscultation. Breath sounds equal bilaterally. GASTROINTESTINAL: Abdomen soft, non-tender, nondistended. No CVA tenderness MUSCULOSKELETAL: No obvious deformities. No clubbing. No cyanosis. No edema. Left ankle bandage-(pt gets regular wound care) knee erythema or edema to the area. No lymphangial pathic spread. NEUROLOGICAL: Awake and alert. No obvious cranial nerve deficits. Motor grossly within normal limits. Normal speech. PSYCHIATRIC: Appropriate mood and affect; insight and judgment normal. Data Data Last Documented VS Vital Signs Date Time Temp Pulse Resp B/P (MAP) Pulse Ox O2 Delivery O2 Flow Rate FiO2 04/28/17 18:45 04/28/17 18:22 60 16 98 Room Air 04/28/17 15:05 98.7 Orders Orders Electrocardiogram (04/28/17 ) Basic Metabolic Panel (Bmp) (04/28/17 15:33) Complete Blood Count With Diff (04/28/17 15:33) Urinalysis - C+S If Indicated (04/28/17 15:33) Chest, Single Ap (04/28/17 15:33) Sodium Chlorid 0.9% 500 Ml Inj (Ns 500 M (04/28/17 15:45) Orthostatic Vital Signs (04/28/17 16:02) Urine Culture (04/28/17 16:30) Ed Discharge Order (04/28/17 17:52) Labs Laboratory Tests Test 04/28/17 15:15 04/28/17 16:30 White Blood Count 7.3 TH/MM3 Red Blood Count 3.64 MIL/MM3 Hemoglobin 10.2 GM/DL Hematocrit 31.0 % Mean Corpuscular Volume 85.2 FL Mean Corpuscular Hemoglobin 28.0 PG Mean Corpuscular Hemoglobin Concent 32.8 % Red Cell Distribution Width 17.5 % Platelet Count 142 TH/MM3 Mean Platelet Volume 9.3 FL Neutrophils (%) (Auto) 75.7 % Lymphocytes (%) (Auto) 9.3 % Monocytes (%) (Auto) 10.4 % Eosinophils (%) (Auto) 3.5 % Basophils (%) (Auto) 1.1 % Neutrophils # (Auto) 5.5 TH/MM3 Lymphocytes # (Auto) 0.7 TH/MM3 Monocytes # (Auto) 0.8 TH/MM3 Eosinophils # (Auto) 0.3 TH/MM3 Basophils # (Auto) 0.1 TH/MM3 CBC Comment DIFF FINAL Differential Comment Blood Urea Nitrogen 35 MG/DL Creatinine 1.71 MG/DL Random Glucose 123 MG/DL Calcium Level 8.3 MG/DL Sodium Level 139 MEQ/L Potassium Level 3.4 MEQ/L Chloride Level 105 MEQ/L Carbon Dioxide Level 27.8 MEQ/L Anion Gap 6 MEQ/L Estimat Glomerular Filtration Rate 38 ML/MIN Urine Color YELLOW Urine Turbidity HAZY Urine pH 5.5 Urine Specific [place] 1.017 Urine Protein 30 mg/dL Urine Glucose (UA) NEG mg/dL Urine Ketones NEG mg/dL Urine Occult Blood SMALL Urine Nitrite NEG Urine Bilirubin NEG Urine Urobilinogen LESS THAN 2.0 MG/DL Urine Leukocyte Esterase LARGE Urine RBC 11 /hpf Urine WBC /hpf Urine Squamous Epithelial Cells <1 /hpf Urine Bacteria MANY /hpf Urine Hyaline Casts 7 /lpf Urine Mucus FEW /lpf Urine Yeast (Budding) OCC Microscopic Urinalysis Comment CULTURE INDICATED MDM Medical Decision Making Medical Screen Exam Complete: Yes Emergency Medical Condition: Yes Differential Diagnosis Transient hypotension, orthostatic hypotension, dehydration Narrative Course 89-year-old male hard of hearing presents to the emergency department at the request of his for low blood pressure. States that his blood pressure was 70 systolic. Patient denies fever, chills, chest pain, shortness breath, abdominal pain, back pain. States he does have a pacemaker but denies history of MIs. Says he has a remote history congestive heart failure but is unable to tell me any information on this. His is not present for further information. Patient normotensive in the emergency department today. 500cc NS administered. Orthostatics negative. CXR reads concern for pneumonia, however, no Leukocytosis, no fever, no SOB. Comparison of 2017 shows similar findings. Laboratory Tests Test 04/28/17 15:15 04/28/17 16:30 White Blood Count 7.3 TH/MM3 Red Blood Count 3.64 MIL/MM3 Hemoglobin 10.2 GM/DL Hematocrit 31.0 % Mean Corpuscular Volume 85.2 FL Mean Corpuscular Hemoglobin 28.0 PG Mean Corpuscular Hemoglobin Concent 32.8 % Red Cell Distribution Width 17.5 % Platelet Count 142 TH/MM3 Mean Platelet Volume 9.3 FL Neutrophils (%) (Auto) 75.7 % Lymphocytes (%) (Auto) 9.3 % Monocytes (%) (Auto) 10.4 % Eosinophils (%) (Auto) 3.5 % Basophils (%) (Auto) 1.1 % Neutrophils # (Auto) 5.5 TH/MM3 Lymphocytes # (Auto) 0.7 TH/MM3 Monocytes # (Auto) 0.8 TH/MM3 Eosinophils # (Auto) 0.3 TH/MM3 Basophils # (Auto) 0.1 TH/MM3 CBC Comment DIFF FINAL Differential Comment Blood Urea Nitrogen 35 MG/DL Creatinine 1.71 MG/DL Random Glucose 123 MG/DL Calcium Level 8.3 MG/DL Sodium Level 139 MEQ/L Potassium Level 3.4 MEQ/L Chloride Level 105 MEQ/L Carbon Dioxide Level 27.8 MEQ/L Anion Gap 6 MEQ/L Estimat Glomerular Filtration Rate 38 ML/MIN Urine Color YELLOW Urine Turbidity HAZY Urine pH 5.5 Urine Specific [place] 1.017 Urine Protein 30 mg/dL Urine Glucose (UA) NEG mg/dL Urine Ketones NEG mg/dL Urine Occult Blood SMALL Urine Nitrite NEG Urine Bilirubin NEG Urine Urobilinogen LESS THAN 2.0 MG/DL Urine Leukocyte Esterase LARGE Urine RBC 11 /hpf Urine WBC /hpf Urine Squamous Epithelial Cells <1 /hpf Urine Bacteria MANY /hpf Urine Hyaline Casts 7 /lpf Urine Mucus FEW /lpf Urine Yeast (Budding) OCC Microscopic Urinalysis Comment CULTURE INDICATED I discussed with Dr. Bui who agrees for discharge. I spoke with the and answered all questions. She admitted that he had not been drinking a lot of fluids recently. He apparently is follow by vascular and wound care physicians daily to QOD for his ankle would. In addition, pt just finished levaquin for his wound. Says that she gives him carvedilol only if his blood pressure is over 110 systolic. Says that he takes Lasix which may be a reason for his low blood pressure as well. I recommended that he should increase his oral intake and follow-up with his primary care physician tomorrow. Advised that if he did develop symptoms of hypotension that he should return to the emergency department. Patient had no complaints today while in the emergency department. Diagnosis Primary Impression: Hypotension Qualified Codes: I95.89 - Other hypotension Referrals: Primary Care Physician Additional Instructions: Follow up with your PCP tomorrow. Ensure you have adequate fluid intake. If you feel dizzy, shortness of breath, or weak, return to the emergency department. Disposition: 01 DISCHARGE HOME Condition: Stable Luli Zamora Apr 28, 2017 16:07
[2017-04-28 16:12] LABS: AUTOMATED NEUTROPHIL # 5.5 TH/MM3 (1.8-7.7); BASOPHIL # 0.1 TH/MM3 (0-0.2); BASOPHIL % 1.1 % (0.0-2.0); EOSINOPHIL # 0.3 TH/MM3 (0-0.4); EOSINOPHIL % 3.5 % (0.0-4.0); HEMOGLOBIN 10.2 GM/DL (13.0-17.0); LYMPH % 9.3 % (9.0-44.0); LYMPHOCYTE # 0.7 TH/MM3 (1.0-4.8); MEAN CELL VOLUME 85.2 FL (80.0-100.0); MEAN CORPUSCULAR HGB CONC 32.8 % (32.0-36.0); MEAN PLATELET VOLUME 9.3 FL (7.0-11.0); MONO % 10.4 % (0.0-8.0); MONOCYTE # 0.8 TH/MM3 (0-0.9); NEUT % 75.7 % (16.0-70.0); PLATELET COUNT 142 TH/MM3 (150-450); RED BLOOD COUNT 3.64 MIL/MM3 (4.50-5.90); RED CELL DISTRIBUTION WIDTH 17.5 % (11.6-17.2); WHITE BLOOD COUNT 7.3 TH/MM3 (4.0-11.0)
[2017-04-28 16:29] LABS: BICARBONATE 27.8 MEQ/L (21.0-32.0); CALCIUM 8.3 MG/DL (8.5-10.1); CREATININE 1.71 MG/DL (0.60-1.30)
--- NOTE | 2017-04-28 16:51 | RADRPT ---
EXAM DATE/TIME: 04/28/2017 15:58 [facility] COMPARISON: CHEST SINGLE AP, November 30, 2016, 19:47. INDICATIONS : Palpitations. MEDICAL HISTORY : Congestive heart failure. aortic stenosis SURGICAL HISTORY : aortic valve 2016, pacemaker 2017 ENCOUNTER: Initial ACUITY: 1 day PAIN SCORE: Non-responsive. LOCATION: Bilateral chest FINDINGS: Right perihilar patchiness and bibasilar patchiness are noted consistent with probable pneumonia. Cli nical correlation is recommended. Chronic pleural and parenchymal calcifications are noted bilaterall y. The heart is enlarged. Left subclavian dual lead pacemaker is stable in position. CONCLUSION: Right perihilar and bibasilar patchiness are noted consistent with probable pneumonia. Clinical corre lation is recommended. Cardiomegaly. Chronic pleural and parenchymal calcifications are stable. Nacho Rivera MD on April 28, 2017 at 16:47 Board Certified Radiologist. This report was verified electronically.
[2017-04-28 16:53] LABS: BACTERIA, URINE MANY /hpf; BILIRUBIN, URINE NEG (NEG); BLOOD, URINE SMALL (NEG); GLUCOSE,URINE NEG (NEG); HYALINE CAST, URINE 7 /lpf (RARE); KETONE, URINE NEG (NEG); MUCUS URINE FEW /lpf (OCC); NITRITE,URINE NEG (NEG); PH, URINE 5.5 (5.0-8.5); SQUAMOUS EPITHELIAL CELL URINE <1 /hpf (0-5); URINE COLOR YELLOW (YELLW/STRAW); URINE LEUKOCYTE ESTERASE LARGE (NEG)
[2017-04-28 17:18] VITALS: BP_SYST 113; BP_SYST 125; BP_DIAS 59; RESP 14
[2017-04-28 17:33] VITALS: BP 125/59; PULSE 60; RESP 14; O2SAT 98
[2017-04-28 18:22] VITALS: BP 105/60; PULSE 60; RESP 16; O2SAT 98
--- NOTE | 2017-04-30 09:52 | EKG ---
Date Performed: 04/28/2017 Time Performed: 15:37:30 PTAGE: 89 years EKG: ELECTRONIC VENTRICULAR PACEMAKER ABNORMAL RHYTHM ECG Compared to PREVIOUS TRACING , the patient is now AV pacing. PREVIOUS TRACIN11/30/2016 19.53 DOCTOR: Marcio Segovia Interpretating Date/Time 04/30/2017 09:51:09
== END 2017-04-28 19:09 | disposition home or self-care (01) ==
LOC: NEPC 14:57
DX: I95.9 Hypotension, unspecified (principal); R82.99 Other abnormal findings in urine; R94.31 Abnormal electrocardiogram [ECG] [EKG]; I11.0 Hypertensive heart disease with heart failure; I50.9 Heart failure, unspecified; M10.9 Gout, unspecified; K21.9 Gastro-esophageal reflux disease without esophagitis; Z85.01 Personal history of malignant neoplasm of esophagus; Z95.0 Presence of cardiac pacemaker; Z79.82 Long term (current) use of aspirin; Z79.899 Other long term (current) drug therapy
CPT/HCPCS: 71045; 80048; 81001; 85025; 87086; 93005; 96360; 99285; J7040

== ENCOUNTER 2017-05-05 08:02 | Observation (INO) | payer MEDICARE ==
[~2017-05-05] VITALS: Ht 172.7 cm; Wt 63.0 kg
[2017-05-05 08:06] VITALS: BP 164/70; PULSE 120; PULSE 60; RESP 15; TEMP 98.3; O2SAT 96
[2017-05-05] MEDS ORDERED: SODIUM CHLORIDE 0.9% FLUSH 10 ML FLUSH IVF PRN (08:30)
--- NOTE | 2017-05-05 08:38 | PD ---
HPI . Lower GI bleed Chief Complaint: Bleeding Time Seen by Provider: 08:20 Travel History International Travel<30 days: No Contact w/Intl Traveler<30days: No Traveled to known affect area: No History of Present Illness HPI This patient was sent to us via [facility] at the request of his because of blood in his diaper. She first noticed it last night. The bleeding has reportedly been scant. The patient denies any associated abdominal pain. He has not been running a fever. He is not on an anticoagulant. He denies any known history of diverticulitis or diverticulosis. There are no known modifying factors. PFSH Past Medical History Hx Anticoagulant Therapy: No Arthritis: Yes Heart Rhythm Problems: Yes (VENTRICULAR TACHYCARDIA ) Cancer: Yes (ESOPHOGEAL) Cardiac Catheterization: Yes Cardiovascular Problems: Yes Congestive Heart Failure: Yes Diabetes: No Diminished Hearing: Yes (B hearing aids ) Endocrine: No Gastrointestinal Disorders: Yes GERD: Yes Gout: Yes Genitourinary: Yes Hiatal Hernia: Yes Hypertension: Yes Influenza Vaccination: No (denies) Past Surgical History Abdominal Surgery: Yes (ESOPHOGEAL- STOMACH SURGERY) Appendectomy: Yes Cardiac Surgery: Yes (TAVR JUNE 25, 2015 , PACEMAKER [employer] ) Cholecystectomy: Yes Pacemaker: Yes Thoracic Surgery: Yes (ESOPHAGECTOMY) Tonsillectomy: Yes Other Surgery: Yes Social History Alcohol Use: No Tobacco Use: No Substance Use: No Allergies-Medications (Allergen,Severity, Reaction): 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) Reported Meds & Prescriptions Reported Meds & Active Scripts Active Lorcet (Hydrocodone-Acetaminophen) 5-325 mg Tab 1 Tab PO Q6H PRN Coreg (Carvedilol) 3.125 Mg Tab 3.125 Mg PO Q12HR Reported Coreg (Carvedilol) 3.125 Mg Tab 3.125 Mg PO DAILY Vitamin D3 (Cholecalciferol) 5,000 Unit Cap 5,000 Units PO DAILY Coenzyme Q10 (Ubidecarenone) 100 Mg Cap 100 Mg PO DAILY Ferrous Sulfate 325 Mg (65 Mg Iron) Tablet 65 Mg PO DAILY B12 (Cyanocobalamin) 1,000 Mcg Tab 1,000 Mg PO DAILY Rewey 3 500 500 mg (Rewey-3 Fatty Acids) 1 Cap Cap 500 Mg PO DAILY Furosemide 20 Mg Tab 20 Mg PO DAILY Amiodarone (Amiodarone HCl) 200 Mg Tab 200 Mg PO DAILY Zyloprim (Allopurinol) 100 Mg Tab 100 Mg PO DAILY Protonix (Pantoprazole Sodium) 40 Mg Tab 40 Mg PO DAILY Gabapentin 300 Mg Cap 300 Mg PO HS Fosamax (Alendronate Sodium) 70 Mg Tab 70 Mg PO Q7D Aspirin 81 (Aspirin) 81 Mg Tabdr 81 Mg PO DAILY Mamie (Dutasteride-Tamsulosin) 0.5-0.4 Mg Cap 1 Cap PO DAILY Review of Systems ROS Limitations: Hearing Impaired Except as stated in HPI: all other systems reviewed are Neg General / Constitutional: No: Fever, Chills Cardiovascular: No: Chest Pain or Discomfort Respiratory: No: Shortness of Breath Gastrointestinal: Positive: Hematochezia, No: Nausea, Vomiting, Diarrhea, Abdominal Pain Genitourinary: No: Urgency, Frequency, Dysuria Physical Exam Narrative GENERAL: Elderly man who is hard of hearing and does not have his hearing aids. He is also edentulous and does not have his dentures. SKIN: warm/dry. HEAD: Normocephalic. Atraumatic. EYES: Pupils equal and round. No scleral icterus. No injection or drainage. ENT: No nasal bleeding or discharge. Mucous membranes pink and moist. NECK: Trachea midline. Full range of motion without pain.. CARDIOVASCULAR: Regular rate and rhythm. RESPIRATORY: No accessory muscle use. Clear to auscultation. Breath sounds equal bilaterally. GASTROINTESTINAL: Abdomen soft. Nontender. Bowel sounds present. Nondistended. RECTAL: His diaper is streaked with what appears to be stool mixed with blood. His prostate is enlarged. There is no palpable mass in the rectal vault. There is no significant stool in the rectal vault but the stool that is present is brownish red. MUSCULOSKELETAL: No obvious deformities. NEUROLOGICAL: Awake and alert. No obvious cranial nerve deficits. Motor grossly within normal limits. Normal speech. PSYCHIATRIC: Appropriate mood and affect; insight and judgment normal. Data Data Last Documented VS Vital Signs Date Time Temp Pulse Resp B/P (MAP) Pulse Ox O2 Delivery O2 Flow Rate FiO2 05/05/17 08:06 98.3 60 15 164/70 (101) 96 Orders Orders Basic Metabolic Panel (Bmp) (05/05/17 08:20) Complete Blood Count With Diff (05/05/17 08:20) Prothrombin Time / Inr (Pt) (05/05/17 08:20) Act Partial Throm Time (Ptt) (05/05/17 08:20) Type And Screen (05/05/17 08:20) Ecg Monitoring (05/05/17 08:20) Iv Access Insert/Monitor (05/05/17 08:20) Oximetry (05/05/17 08:20) Sodium Chloride 0.9% Flush (Ns Flush) (05/05/17 08:30) Ct Abd/Pel W Iv Contrast(Rout) (05/05/17 08:20) Iohexol 350 Inj (Omnipaque 350 Inj) (05/05/17 09:22) Metronidazole 500 Mg Inj (Flagyl 500 Mg (05/05/17 10:00) C Diff Toxin Pcr (05/05/17 09:51) Admit Order (Ed Use Only) (05/05/17 10:13) Labs Laboratory Tests Test 05/05/17 08:30 White Blood Count 11.4 TH/MM3 Red Blood Count 3.92 MIL/MM3 Hemoglobin 10.8 GM/DL Hematocrit 32.9 % Mean Corpuscular Volume 83.9 FL Mean Corpuscular Hemoglobin 27.6 PG Mean Corpuscular Hemoglobin Concent 33.0 % Red Cell Distribution Width 17.9 % Platelet Count 142 TH/MM3 Mean Platelet Volume 9.3 FL Neutrophils (%) (Auto) 87.3 % Lymphocytes (%) (Auto) 4.6 % Monocytes (%) (Auto) 6.0 % Eosinophils (%) (Auto) 1.7 % Basophils (%) (Auto) 0.4 % Neutrophils # (Auto) 10.0 TH/MM3 Lymphocytes # (Auto) 0.5 TH/MM3 Monocytes # (Auto) 0.7 TH/MM3 Eosinophils # (Auto) 0.2 TH/MM3 Basophils # (Auto) 0.0 TH/MM3 CBC Comment DIFF FINAL Differential Comment Prothrombin Time 11.1 SEC Prothromb Time International Ratio 1.1 RATIO Activated Partial Thromboplast Time 29.9 SEC Blood Urea Nitrogen 24 MG/DL Creatinine 1.49 MG/DL Random Glucose 88 MG/DL Calcium Level 9.4 MG/DL Sodium Level 135 MEQ/L Potassium Level 4.5 MEQ/L Chloride Level 99 MEQ/L Carbon Dioxide Level 30.4 MEQ/L Anion Gap 6 MEQ/L Estimat Glomerular Filtration Rate 44 ML/MIN MDM Medical Decision Making Medical Screen Exam Complete: Yes Emergency Medical Condition: Yes Medical Record Reviewed: Yes (medical history is significant for aortic stenosis status post aortic valve replacement, previous V. tach, history of esophageal cancer, coronary artery disease, hypertension) Interpretation(s) Physical EKG shows a paced rhythm with a rate of 122 per the computer. However , I have counted his radial pulse and his QRS complexes and his heart rate is really 60. Differential Diagnosis Differential diagnosis includes but is not limited to hemorrhoid, diverticulitis , cancer, coagulopathy Narrative Course CBC & BMP Diagram 05/05/17 08:30 Calcium Level 9.4 This patient presents with a chief complaint of rectal bleeding. The bleeding does not seem to be profuse. He is not on an anticoagulant. There are no palpable masses on rectal exam. Coags are normal. Last Impressions Abdomen/Pelvis CT 05/05/17 0820 Signed Impressions: Service Date/Time: Friday, May 05, 2017 09:20 - CONCLUSION: Possible early colitis descending sigmoid colon. No free fluid or free air Previous TAVR with compensated cardiomegaly. Moderate atherosclerotic vascular disease. Jeremiah Ray MD FACR I have ordered a stool sample for C. difficile and have ordered a dose of Flagyl. I have suggested to his that he be kept overnight for observation sure that he does not develop clinically significant anemia. She is in agreement with this plan. [facility] Point of Care Internal Pos. & Neg. Controls: Passed Fecal Specimen Occult Blood: Positive Physician Communication Physician Communication Dr. Reece, FP resident Diagnosis Primary Impression: GI bleed Qualified Codes: K92.2 - Gastrointestinal hemorrhage, unspecified Additional Impression: Colitis Admitting Information Admitting Physician Requests: Observation Condition: Stable Kelsy Leigh MD May 05, 2017 08:38
[2017-05-05 08:46] LABS: BASOPHIL % 0.4 % (0.0-2.0); EOSINOPHIL # 0.2 TH/MM3 (0-0.4); EOSINOPHIL % 1.7 % (0.0-4.0); HEMATOCRIT 32.9 % (39.0-51.0); HEMOGLOBIN 10.8 GM/DL (13.0-17.0); LYMPH % 4.6 % (9.0-44.0); LYMPHOCYTE # 0.5 TH/MM3 (1.0-4.8); MEAN CELL VOLUME 83.9 FL (80.0-100.0); MEAN CORPUSCULAR HEMOGLOBIN 27.6 PG (27.0-34.0); MEAN PLATELET VOLUME 9.3 FL (7.0-11.0); MONOCYTE # 0.7 TH/MM3 (0-0.9); NEUT % 87.3 % (16.0-70.0); PLATELET COUNT 142 TH/MM3 (150-450); RED BLOOD COUNT 3.92 MIL/MM3 (4.50-5.90); RED CELL DISTRIBUTION WIDTH 17.9 % (11.6-17.2); WHITE BLOOD COUNT 11.4 TH/MM3 (4.0-11.0)
[2017-05-05 08:48] LABS: INTERNATIONAL NORMALIZED RATIO 1.1 RATIO; PROTHROMBIN TIME - PATIENT 11.1 SEC (9.8-11.6)
[2017-05-05 09:03] LABS: BICARBONATE 30.4 MEQ/L (21.0-32.0); CALCIUM 9.4 MG/DL (8.5-10.1); CREATININE 1.49 MG/DL (0.60-1.30)
[2017-05-05] MEDS ORDERED: IOHEXOL 350 MG/ML 10 ML VIAL (for RAD DIAG) IVCONTRAST ONE (09:22)
--- NOTE | 2017-05-05 09:37 | RADRPT ---
EXAM DATE/TIME: 05/05/2017 09:20 [facility] COMPARISON: CT ABDOMEN & PELVIS W CONTRAST, August 24, 2014, 21:15. INDICATIONS : Blood in stool. IV CONTRAST: 96 cc Omnipaque 350 (iohexol) IV ORAL CONTRAST: No oral contrast ingested. RADIATION DOSE: 4.88 CTDIvol (mGy) MEDICAL HISTORY : Hernia, hiatal. Congestive heart failure. Hypertension.Throat cancer. SURGICAL HISTORY : Appendectomy. Cholecystectomy.Pacemaker.Esophagetomy. ENCOUNTER: Initial ACUITY: 1 day PAIN SCALE: 0/10 LOCATION: lower quadrant TECHNIQUE: Volumetric scanning of the abdomen and pelvis was performed. Using automated exposure control and ad justment of the mA and/or kV according to patient size, radiation dose was kept as low as reasonably achievable to obtain optimal diagnostic quality images. DICOM format image data is available electro nically for review and comparison. FINDINGS: Moderate bibasilar parenchymal changes worse on the left. Previous TAVR with compensated cardiomegaly. Large lateral hernia Multiple abdominal surgeries Liver and spleen unremarkable without ductal dilatation Gallbladder surgically absent Pancreas appears normal Adrenal glands are unremarkable Right kidney: 3.6 cm cyst Left kidney: 1 cm cyst No adenopathy Moderate vascular calcifications and minimal mural thrombus in the aorta Marked bowel wall thickening in the mid descending into sigmoid colon that might be early colitis. There is no abscess, free fluid or free air Minimal bladder wall thickening left side the bladder Air-fluid level in the rectum There is no hernia Degenerative changes lumbar spine. CONCLUSION: Possible early colitis descending sigmoid colon. No free fluid or free air Previous TAVR with compensated cardiomegaly. Moderate atherosclerotic vascular disease. Jeremiah Ray MD FACR on May 05, 2017 at 9:31 Board Certified Radiologist. This report was verified electronically.
[2017-05-05] MEDS ORDERED: metroNIDAZOLE 500 MG INJ 100 ML IV ONE (10:00)
[2017-05-05] MEDS ORDERED: CARV3.125 PO (10:12)
--- NOTE | 2017-05-05 10:56 | HHI.HP ---
[facility] Service Family Medicine Primary Care Physician Glen Dickens M.D. Admission Diagnosis GI bleed, colitis Diagnoses: International Travel<30 Days: No Contact w/Intl Traveler<30days: No Known Affected Area: No History of Present Illness 89 yr old with hx of diverticulitis, aortic stenosis s/p TAVR, CHF, and pacemaker presented with lower abdominal pain and bloody stools. Accompanied by , who provides all of the history. Reports that patient had severe constipation last and has been taking stool softeners and laxatives. Yesterday evening after taking two stool softeners, patient had loose stools and moderate lower abdominal cramps. This morning, patient had bright red bloody bowel movements. is unsure how much blood in stools. thought it might have been due to hemmorhoids, but was very concerned and called 911. Patient was brought to hospital by [facility]. Patient has been very fatigue. Patient is currently not on anticoagulants. Had a CT colonography last year at Dr. Ramirez's office per . Denies fevers, CP, SOB, and N/V. (Kristina Carlos MD R1) Review of Systems Constitutional: COMPLAINS OF: Weight loss (last june- 40 lb lost ), DENIES: Fever, Change in appetite (poor ) Eyes: DENIES: Vision loss Ears, nose, mouth, throat: COMPLAINS OF: Running Nose Respiratory: DENIES: Cough, Shortness of breath Cardiovascular: DENIES: Chest pain Gastrointestinal: COMPLAINS OF: Abdominal pain, Bloody stools, Diarrhea (loose to watery), Nausea, DENIES: Vomiting Genitourinary: DENIES: Dysuria Musculoskeletal: COMPLAINS OF: Muscle aches Integumentary: DENIES: Rash Neurologic: DENIES: Headache (Kristina Carlos MD R1) Past Family Social History Past Medical History CHF HTN aortic stenosis s/p aortic valve replacement June 2015 Pacemaker 2017 Hx of anemia Hx of asbestosis scarring Esophageal cancer 25 years ago Left heel foot ulcer since February Past Surgical History Aortic Valve replacement 2016 Pacemaker placement 2017 Esophagectomy Cholecystectomy (Kristina Carlos MD R1) Allergies: 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 Cool and dry. HEAD: Atraumatic. Normocephalic. No temporal or scalp tenderness. EYES: Pupils equal round and reactive. Extraocular motions intact. No scleral icterus. No injection or drainage. ENT: Nose without bleeding, purulent drainage or septal hematoma. Throat without erythema, tonsillar hypertrophy or exudate. Uvula midline. Airway patent. NECK: Trachea midline. No JVD or lymphadenopathy. Supple, nontender, no meningeal signs. CARDIOVASCULAR: Regular rate and rhythm without murmurs, gallops, or rubs. RESPIRATORY: Clear to auscultation. Breath sounds equal bilaterally. No wheezes , rales, or rhonchi. GASTROINTESTINAL: Abdomen soft, non-tender, nondistended. No hepato-splenomegaly , or palpable masses. No guarding. MUSCULOSKELETAL: Extremities without clubbing, cyanosis, or edema. No joint tenderness, effusion, or edema noted. No calf tenderness. Negative Homans sign bilaterally. NEUROLOGICAL: Awake and alert. Not able to communicate verbally. Poor non- verbal communication. Laboratory Laboratory Tests Test 05/05/17 08:30 White Blood Count 11.4 Red Blood Count 3.92 Hemoglobin 10.8 Hematocrit 32.9 Mean Corpuscular Volume 83.9 Mean Corpuscular Hemoglobin 27.6 Mean Corpuscular Hemoglobin Concent 33.0 Red Cell Distribution Width 17.9 Platelet Count 142 Mean Platelet Volume 9.3 Neutrophils (%) (Auto) 87.3 Lymphocytes (%) (Auto) 4.6 Monocytes (%) (Auto) 6.0 Eosinophils (%) (Auto) 1.7 Basophils (%) (Auto) 0.4 Neutrophils # (Auto) 10.0 Lymphocytes # (Auto) 0.5 Monocytes # (Auto) 0.7 Eosinophils # (Auto) 0.2 Basophils # (Auto) 0.0 CBC Comment DIFF FINAL Differential Comment Prothrombin Time 11.1 Prothromb Time International Ratio 1.1 Activated Partial Thromboplast Time 29.9 Blood Urea Nitrogen 24 Creatinine 1.49 Random Glucose 88 Calcium Level 9.4 Sodium Level 135 Potassium Level 4.5 Chloride Level 99 Carbon Dioxide Level 30.4 Anion Gap 6 Estimat Glomerular Filtration Rate 44 (Kristina Carlos MD R1) Result Diagram: 05/05/1782905/05/17829 Caprini VTE Risk Assessment Caprini VTE Risk Assessment: Mod/High Risk (score >= 2) Caprini Risk Assessment Model Point Value = 1 Point Value = 2 Point Value = 3 Point Value = 5 Age 41-60 Minor surgery BMI > 25 kg/m2 Swollen legs Varicose veins or History of unexplained or recurrent spontaneous Oral contraceptives or hormone replacement Sepsis (< 1 month) Serious lung disease, including pneumonia (< 1 month) Abnormal pulmonary function Acute myocardial infarction Congestive heart failure (< 1 month) History of inflammatory bowel disease Medical patient at bed rest Age 61-74 Arthroscopic surgery Major open surgery (> 45 min) Laparoscopic surgery (> 45 min) Malignancy Confined to bed (> 72 hours) Immobilizing plaster cast Central venous access Age >= 75 History of VTE Family history of VTE Factor V Leiden Prothrombin [id number] Lupus anticoagulant Anticardiolipin antibodies Elevated serum homocysteine Heparin-induced thrombocytopenia Other congenital or acquired thrombophilia Stroke (< 1 month) Elective arthroplasty Hip, pelvis, or leg fracture Acute spinal cord injury (< 1 month) Prophylaxis Regimen Total Risk Factor Score Risk Level Prophylaxis Regimen 0-1 Low Early ambulation 2 Moderate Order ONE of the following: *Sequential Compression Device (SCD) *Heparin 5000 units SQ BID 3-4 Higher Order ONE of the following medications: *Heparin 5000 units SQ TID *Enoxaparin/Lovenox 40 mg SQ daily (WT < 150 kg, CrCl > 30 mL/min) *Enoxaparin/Lovenox 30 mg SQ daily (WT < 150 kg, CrCl > 10-29 mL/min) *Enoxaparin/Lovenox 30 mg SQ BID (WT < 150 kg, CrCl > 30 mL/min) AND/OR *Sequential Compression Device (SCD) 5 or more Highest Order ONE of the following medications: *Heparin 5000 units SQ TID (Preferred with Epidurals) *Enoxaparin/Lovenox 40 mg SQ daily (WT < 150 kg, CrCl > 30 mL/min) *Enoxaparin/Lovenox 30 mg SQ daily (WT < 150 kg, CrCl > 10-29 mL/min) *Enoxaparin/Lovenox 30 mg SQ BID (WT < 150 kg, CrCl > 30 mL/min) AND *Sequential Compression Device (SCD) (Kristina Carlos MD R1) Assessment and Plan Assessment and Plan 89 yr old with hx of diverticulitis, aortic stenosis s/p AVR, CHF, and pacemaker presented with lower abdominal pain and bloody stools. Code Status DNR Discussed Condition With Dr. Reece and Dr. Griffith (Kristina Carlos MD R1) Attending Attestation Patient seen and examined. Case reviewed and discussed with the resident team. Agree with plan of care as discussed with me and documented in the resident note. Mr Webster has bright red blood per rectum and some inflammatory changes on his CT , agree with following H/H and consulting GI (Alyce Griffith MD) Problem List: (1) GI bleed ICD Codes: K92.2 - Gastrointestinal hemorrhage, unspecified Status: Acute Plan: 1 days hx of bloody stools CT demonstrated possible early colitis descending sigmoid colon. Previous TAVR with compensated cardiomegaly. Moderate artherosclerotic vascular disease. H/H 10.8/32.9 Blood cultures 2x pending Type and Screen H/H q8h Antibiotics: Ciprofloxacin 400mg Premix q12h Flagyl 500mg IV q6h Protonix 40mg IV push BID Ondansetron 4mg IV push q6h for N/V NS 80mls/hr GI consulted, appreciate recs (2) Colitis ICD Codes: K52.9 - Noninfective gastroenteritis and colitis, unspecified Status: Acute Plan: CT results as above antibiotics as above (3) Renal insufficiency ICD Codes: N28.9 - Disorder of kidney and ureter, unspecified Plan: Baseline Cr ~1.4 per 1 year chart review Cr. 1.49, BUN 24 Continue with NS and monitor (4) Heel ulcer ICD Codes: L97.409 - Non-pressure chronic ulcer of unspecified heel and midfoot with unspecified severity Plan: Wound care physician consulted (5) HTN (hypertension) ICD Codes: I10 - Essential (primary) hypertension Plan: -continue home Coreg and Furosemide (6) Arrhythmia ICD Codes: I49.9 - Cardiac arrhythmia, unspecified Status: Acute Plan: -Continue home Amiodarone (7) BPH (benign prostatic hyperplasia) ICD Codes: N40.0 - Benign prostatic hyperplasia without lower urinary tract symptoms Plan: -Continue home Finasteride (8) Gout ICD Codes: M10.9 - Gout, unspecified Plan: Continue home allopurinol (9) Neuropathy ICD Codes: G62.9 - Polyneuropathy, unspecified Plan: Continue home Gabapentin (10) Nutrition, metabolism, and development symptoms ICD Codes: R63.8 - Other symptoms and signs concerning food and fluid intake Plan: Diet: NPO for GI procedure Fluids: NS 80mls/hr vitals q4h, monitor I & Os DVTs: SCDs (Kristina Carlos MD R1) Physician Certification 2 Midnight Certification Type: Admission for Inpatient Services Order for Inpatient Services The services are ordered in accordance with Medicare regulations or non- Medicare payer requirements, as applicable. In the case of services not specified as inpatient-only, they are appropriately provided as inpatient services in accordance with the 2-midnight benchmark. Estimated LOS (days): 2 2 days is the estimated time the patient will need to remain in the hospital, assuming treatment plan goals are met and no additional complications. Post-Hospital Plan: Home (Kristina Carlos MD R1) Problem Qualifiers (1) GI bleed: Qualified Codes: K92.2 - Gastrointestinal hemorrhage, unspecified (2) Heel ulcer: Qualified Codes: L97.409 - Non-pressure chronic ulcer of unspecified heel and midfoot with unspecified severity (3) HTN (hypertension): Qualified Codes: I10 - Essential (primary) hypertension (4) Arrhythmia: Qualified Codes: I49.9 - Cardiac arrhythmia, unspecified (5) BPH (benign prostatic hyperplasia): Qualified Codes: N40.0 - Benign prostatic hyperplasia without lower urinary tract symptoms (6) Gout: Qualified Codes: M10.9 - Gout, unspecified Kristina Carlos MD R1 May 05, 2017 10:56 Alyce Griffith MD May 06, 2017 12:46
[2017-05-05] MEDS ORDERED: ALENDRONATE SODIUM 70 MG TAB PO SCH (11:00)
[2017-05-05] MEDS ORDERED: DUTASTERIDE TAMSULOSIN PO SCH (11:00)
[2017-05-05] MEDS ORDERED: PANTOPRAZOLE SOD 40 MG DELAYED RELEASE TAB PO SCH (11:00)
[2017-05-05] MEDS ORDERED: ASPIRIN EC 81 MG TABEC PO SCH (11:00)
[2017-05-05] MEDS: SODIUM CHLOR 0.9% 1000 ML INJ 1,000 ML IV SCH ×2 (11:10→23:02)
[2017-05-05] MEDS ORDERED: SODIUM CHLORIDE 0.9% FLUSH 10 ML FLUSH IV FLUSH PRN (11:15)
[2017-05-05] MEDS ORDERED: ONDANSETRON HCL 4 MG/2 ML VIAL IV PUSH PRN (11:15)
[2017-05-05] MEDS ORDERED: MORPHINE SULFATE 2 MG/ML SYRINGE IV PUSH ONE (11:30)
[2017-05-05] MEDS ORDERED: NALOXONE HCL 0.4 MG/ML AMP IV PUSH PRN ×2 (11:30→16:00)
[2017-05-05 12:08] VITALS: O2SAT 95
--- NOTE | 2017-05-05 12:29 | PD.CONS ---
HPI History of Present Illness This is a 89 year old male with hx diverticulitis, esophageal cancer 30y ago, pacemaker who presented with lower abd pain, constipation, and BRBPR. Pt has been constipated for the last week and had relief after taking stool softeners an enemas and subsequently his noticed bright red blood in his diaper and intermingled in stool. THe lower abdominal pain did seem to improve after having BMs. He intermittently has constipation. He has been abnormally fatigued. REcently had pacemaker adjusted. Has lost 20 lbs in the last year since his pacemaker was placed. NOt on blood thinners currently. Followed by Dr Ramirez and CT colonography last year normal per pt's . Last colonoscopy was 3 years ago and normal per pts . Last E[place] 2016 done [place] [facility] [place]/P distal esophagectomy with gastric pull up. Anastomosis is mildly tight and ulcerated at 20cm from incisiors. No bx or dilatation were done. Does have hx diverticulitis and polyps, no recent occurrence diverticulitis. 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) Family History [place] Social History former drinker, none in years former smoker quit 30y ago no illicit drug use (Mary Verma) Review of Systems Constitutional: COMPLAINS OF: Fatigue, Weight loss, DENIES: Fever Endocrine: DENIES: Polydipsia Eyes: DENIES: Blurred vision Ears, nose, mouth, throat: DENIES: Hearing loss Respiratory: DENIES: Cough Cardiovascular: DENIES: Chest pain Gastrointestinal: COMPLAINS OF: Abdominal pain, Bloody stools, Constipation, Diarrhea, DENIES: Nausea, Vomiting Musculoskeletal: DENIES: Muscle aches Integumentary: DENIES: Abnormal pigmentation Immunologic/allergic: DENIES: Eczema (Mary Verma) GI Exam Vitals I&O Vital Signs Date Time Temp Pulse Resp B/P (MAP) Pulse Ox O2 Delivery O2 Flow Rate FiO2 05/05/17 12:08 95 21 05/05/17 08:06 98.3 60 15 164/70 (101) 96 Imaging Last Impressions Abdomen/Pelvis CT 05/05/17 0820 Signed Impressions: Service Date/Time: Friday, May 05, 2017 09:20 - CONCLUSION: Possible early colitis descending sigmoid colon. No free fluid or free air Previous TAVR with compensated cardiomegaly. Moderate atherosclerotic vascular disease. Jeremiah Ray MD FACR Laboratory Test 05/05/17 08:30 White Blood Count 11.4 TH/MM3 Red Blood Count 3.92 MIL/MM3 Hemoglobin 10.8 GM/DL Hematocrit 32.9 % Mean Corpuscular Volume 83.9 FL Mean Corpuscular Hemoglobin 27.6 PG Mean Corpuscular Hemoglobin Concent 33.0 % Red Cell Distribution Width 17.9 % Platelet Count 142 TH/MM3 Mean Platelet Volume 9.3 FL Neutrophils (%) (Auto) 87.3 % Lymphocytes (%) (Auto) 4.6 % Monocytes (%) (Auto) 6.0 % Eosinophils (%) (Auto) 1.7 % Basophils (%) (Auto) 0.4 % Neutrophils # (Auto) 10.0 TH/MM3 Lymphocytes # (Auto) 0.5 TH/MM3 Monocytes # (Auto) 0.7 TH/MM3 Eosinophils # (Auto) 0.2 TH/MM3 Basophils # (Auto) 0.0 TH/MM3 CBC Comment DIFF FINAL Differential Comment Prothrombin Time 11.1 SEC Prothromb Time International Ratio 1.1 RATIO Activated Partial Thromboplast Time 29.9 SEC Blood Urea Nitrogen 24 MG/DL Creatinine 1.49 MG/DL Random Glucose 88 MG/DL Calcium Level 9.4 MG/DL Sodium Level 135 MEQ/L Potassium Level 4.5 MEQ/L Chloride Level 99 MEQ/L Carbon Dioxide Level 30.4 MEQ/L Anion Gap 6 MEQ/L Estimat Glomerular Filtration Rate 44 ML/MIN Physical Examination HEENT: PERRL; normocephalic; atraumatic; no jaundice. CHEST: CTA CARDIAC: RRR ABDOMEN: Soft, nondistended,lower abd TTP; no hepatosplenomegaly; bowel sounds are present in all four quadrants. EXTREMITIES: No clubbing, cyanosis, or edema. SKIN: Normal; no rash; no jaundice. CARD HANGER: somnolent (Mary Verma) Assessment and Plan Plan ASSESSMENT - BRBPR, lower abd pain - ?colitis, CT suggests colitis. pt has hx diverticulitis but this is not seen on CT. had normal CT colonography 2016. Last colonoscopy 3 y ago and normal per pt. hx polyps. pt has been constipated and pain has improved since having several BM, but he is tender on exam - anemia - mild, not far from baseline, actually improved since February 2017 normocytic - leukocytosis - wbc 11 on flagyl and cipro - constipation - chronic, intermittent. PLAN - colonscopy in am - obtain consent - clear liquids today - NPO after midnight - GoLYtely prep - cont flagyl and cipro - monitor labs - further recs to follow pt seen by myself and Dr Mancini and marky note is written on his behalf (Mary Verma) Physician Comments Patient seen and examined Agree with above Continue current supportive care Monitor labs Plan for colonoscopy tomorrow (Axel Mancini MD) Mary Verma May 05, 2017 12:29 Axel Mancini MD May 05, 2017 21:35
[2017-05-05 14:51] VITALS: BP 89/48; PULSE 61; RESP 19; TEMP 97.5; O2SAT 90
[2017-05-05 15:00] VITALS: BP 114/58; PULSE 60; RESP 16; TEMP 97.4; O2SAT 93
[2017-05-05] MEDS: CARVEDILOL 3.125 MG TAB PO SCH ×2 (15:00→22:55)
[2017-05-05] MEDS ORDERED: CARVEDILOL 3.125 MG TAB PO SCH (15:00)
[2017-05-05] MEDS: metroNIDAZOLE 500 MG INJ 100 ML IV SCH ×2 (16:00→22:56)
[2017-05-05] MEDS ORDERED: ACETAMINOPHEN 325 MG TAB PO PRN (16:00)
[2017-05-05] MEDS ORDERED: MORPHINE SULFATE 2 MG/ML SYRINGE IV PUSH PRN (16:00)
[2017-05-05] MEDS ORDERED: ACETAMINOPHEN/HYDROcodone 325 MG/5 MG TAB PO PRN (16:00)
[2017-05-05] MEDS: SODIUM CHLORIDE 0.9% FLUSH 10 ML FLUSH IV FLUSH SCH ×2 (16:00→22:56)
[2017-05-05] MEDS ORDERED: ACETAMINOPHEN/HYDROcodone 325 MG/7.5 MG TAB PO PRN (16:00)
[2017-05-05] MEDS: CIPROFLOXACIN 400 MG PREMIX 200 ML IV SCH (16:01)
[2017-05-05] MEDS: PANTOPRAZOLE SODIUM 40 MG VIAL IV PUSH SCH ×2 (16:01→22:56)
[2017-05-05] MEDS: AMIODARONE 200 MG TAB PO SCH (16:07)
[2017-05-05] MEDS: ALLOPURINOL 100 MG TAB PO SCH (16:09)
[2017-05-05] MEDS: FUROSEMIDE 20 MG TAB PO SCH (16:09)
[2017-05-05] MEDS ORDERED: PEG (High)/E-LYTE SOLN 4000 ML BTL PO ONE (16:45)
[2017-05-05 17:04] LABS: HEMATOCRIT 31.4 % (39.0-51.0); HEMOGLOBIN 10.4 GM/DL (13.0-17.0)
--- NOTE | 2017-05-05 20:23 | EKG ---
Date Performed: 05/05/2017 Time Performed: 08:07:54 PTAGE: 89 years EKG: ELECTRONIC VENTRICULAR PACEMAKER INTERPRETATION BASED ON A DEFAULT AGE OF 40 YEARS PREVIOUS TRACING : 04/28/2017 15.37 Since the prior tracing, there has been no significan t change DOCTOR: Marco A Méndez Interpretating Date/Time 05/05/2017 20:22:08
[2017-05-05 21:43] LABS: HEMATOCRIT 32.7 % (39.0-51.0); HEMOGLOBIN 10.8 GM/DL (13.0-17.0)
[2017-05-05 22:00] VITALS: BP 161/80; PULSE 78; RESP 16; TEMP 98; O2SAT 94
[2017-05-05] MEDS: GABAPENTIN 300 MG CAP PO SCH (22:55)
[2017-05-05 23:46] VITALS: BP 132/65; PULSE 60; RESP 18; TEMP 97.8; O2SAT 95
[2017-05-06] VITALS (10 sets, daily range): BP systolic 109–169; BP diastolic 54–79; PULSE 59–119; RESP 16–20; TEMP 97.4–98.5; O2SAT 94–97
[2017-05-06 03:30] LABS: HEMATOCRIT 34.3 % (39.0-51.0); HEMOGLOBIN 11.2 GM/DL (13.0-17.0)
[2017-05-06] MEDS ORDERED: LACTATED RINGER'S 1000 ML IV PRN (03:30)
[2017-05-06] MEDS ORDERED: POVIDONE IODINE 5% (ANTISEPSIS KIT) 4 APPLICATIONS EACH NARE PRN (03:30)
[2017-05-06] MEDS ORDERED: CHLORHEXIDINE GLUCONATE 2 % 1 PACK (2 CLOTHS) TOPICAL PRN (03:30)
[2017-05-06] MEDS ORDERED: SODIUM CHLORID 0.9% 500 ML IV PRN (03:30)
[2017-05-06] MEDS: CIPROFLOXACIN 400 MG PREMIX 200 ML IV SCH ×2 (03:42→15:38)
[2017-05-06 03:59] LABS: BICARBONATE 32.9 MEQ/L (21.0-32.0); CREATININE 1.22 MG/DL (0.60-1.30)
[2017-05-06] MEDS: metroNIDAZOLE 500 MG INJ 100 ML IV SCH ×5 (04:52→22:00)
[2017-05-06] MEDS: CARVEDILOL 3.125 MG TAB PO SCH ×2 (09:00→21:58)
[2017-05-06] MEDS: SODIUM CHLORIDE 0.9% FLUSH 10 ML FLUSH IV FLUSH SCH ×2 (09:00→21:57)
[2017-05-06] MEDS: LACTOBACILLUS ACIDOPHILUS 1 GM PACKET PO SCH (09:45)
--- NOTE | 2017-05-06 10:07 | HHI.HP ---
[facility] Service Family Medicine Primary Care Physician Glen Dickens M.D. Admission Diagnosis GI bleed, colitis Diagnoses: (1) GI bleed Diagnosis: Principal (2) Colitis Diagnosis: Principal (3) Renal insufficiency Diagnosis: Principal (4) Heel ulcer Diagnosis: Principal (5) HTN (hypertension) Diagnosis: Principal (6) Arrhythmia Diagnosis: Principal (7) BPH (benign prostatic hyperplasia) Diagnosis: Principal (8) Gout Diagnosis: Principal (9) Neuropathy Diagnosis: Principal (10) Nutrition, metabolism, and development symptoms Diagnosis: Principal International Travel<30 Days: No Contact w/Intl Traveler<30days: No Known Affected Area: No History of Present Illness Mr Webster is an 89 yr old with hx of diverticulitis, aortic stenosis s/p TAVR, CHF, and pacemaker presented with lower abdominal pain and bloody stools. Accompanied by , who provides all of the history. Reports that patient had severe constipation last and has been taking stool softeners and laxatives. The evening before admission after taking two stool softeners, patient had loose stools and moderate lower abdominal cramps. Then patient had bright red bloody bowel movements. is unsure how much blood in stools. thought it might have been due to hemorrhoids, but was very concerned and called 911. Patient was brought to hospital by [facility]. Patient has been very fatigued. Patient is currently not on anticoagulants. Had a CT colonography last year at Dr. Ramirez's office per . Denies fevers, CP, SOB, and N/V. He is very frail and bedridden and the pt is a very poor historian. His provides all the history. He has not been having bleeding overnight per his . He is scheduled for colonoscopy today. He has colitis with inflammation per his CT scan. Review of Systems ROS Limitations: Clinical Condition, Poor Historian Constitutional: COMPLAINS OF: Weight loss Endocrine: DENIES: Polydipsia, Polyphagia Cardiovascular: DENIES: Lower Extremity Edema Gastrointestinal: COMPLAINS OF: Abdominal pain, Bloody stools, Constipation, Diarrhea, DENIES: Black stools, Nausea, Vomiting, Difficulty Swallowing, Anorexia Musculoskeletal: COMPLAINS OF: Joint pain Neurologic: COMPLAINS OF: Abnormal gait Past Family Social History Past Medical History CHF HTN aortic stenosis s/p aortic valve replacement June 2015 Pacemaker 2016 Hx of anemia Hx of asbestosis scarring Esophageal cancer 25 years ago Left heel foot ulcer since February Past Surgical History Aortic Valve replacement 2016 Pacemaker placement 2017 Esophagectomy Cholecystectomy Allergies: 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) Family History Dad- [place]- 80s Mom- unknown Social History Lives in [place] in [facility], is primary senior caregiver Has home health care- 2/day a week quit 35 ago, started when he was 22- 1ppd No hx of heavy drinking Denies illicit drug use Physical Exam Vital Signs Vital Signs Date Time Temp Pulse Resp B/P (MAP) Pulse Ox O2 Delivery O2 Flow Rate FiO2 05/06/17 09:34 60 05/06/17 08:33 119 16 121/79 (93) 05/06/17 07:21 95 21 05/06/17 04:17 98.5 59 18 140/68 (92) 97 05/05/17 23:46 97.8 60 18 132/65 (87) 95 05/05/17 22:00 98.0 78 16 161/80 (107) 94 05/05/17 15:00 97.4 60 16 114/58 (76) 93 05/05/17 14:51 97.5 61 19 89/48 (62) 90 05/05/17 12:08 95 21 Physical Exam GENERAL: elderly male in bed, in NAD. frail and appears debilitated SKIN: No rashes, ecchymoses or lesions. Cool and dry. HEAD: Atraumatic. Normocephalic. EYES: Pupils equal round and reactive. Extraocular motions intact. No scleral icterus. No injection or drainage. ENT: Nose without bleeding, purulent drainage or septal hematoma. Throat without erythema, tonsillar hypertrophy or exudate. Uvula midline. Airway patent. NECK: Trachea midline. No JVD or lymphadenopathy. Supple, nontender, no meningeal signs. CARDIOVASCULAR: Regular rate and rhythm without murmurs, gallops, or rubs. RESPIRATORY: Clear to auscultation. Breath sounds equal bilaterally. No wheezes , rales, or rhonchi. GASTROINTESTINAL: Abdomen soft, non-tender, nondistended. No hepato-splenomegaly , or palpable masses. No guarding. MUSCULOSKELETAL: Extremities without clubbing, cyanosis, or edema. No joint tenderness, effusion, or edema noted. No calf tenderness. Negative Homans sign bilaterally. NEUROLOGICAL: Awake and alert. Not able to communicate verbally. Poor non- verbal communication. Laboratory Laboratory Tests Test 05/05/17 16:28 05/05/17 21:00 05/06/17 03:10 Hemoglobin 10.4 10.8 11.2 Hematocrit 31.4 32.7 34.3 Blood Urea Nitrogen 20 Creatinine 1.22 Random Glucose 96 Calcium Level 9.0 Sodium Level 138 Potassium Level 4.3 Chloride Level 101 Carbon Dioxide Level 32.9 Anion Gap 4 Estimat Glomerular Filtration Rate 56 Date/Time Source Procedure Growth Status 05/05/17 11:15 Blood Peripheral Aerobic Blood Culture Pending Received 05/05/17 11:15 Blood Peripheral Anaerobic Blood Culture Pending Received Result Diagram: 05/06/1730905/06/17309 Caprini VTE Risk Assessment Caprini VTE Risk Assessment: Mod/High Risk (score >= 2) Caprini Risk Assessment Model Point Value = 1 Point Value = 2 Point Value = 3 Point Value = 5 Age 41-60 Minor surgery BMI > 25 kg/m2 Swollen legs Varicose veins or History of unexplained or recurrent spontaneous Oral contraceptives or hormone replacement Sepsis (< 1 month) Serious lung disease, including pneumonia (< 1 month) Abnormal pulmonary function Acute myocardial infarction Congestive heart failure (< 1 month) History of inflammatory bowel disease Medical patient at bed rest Age 61-74 Arthroscopic surgery Major open surgery (> 45 min) Laparoscopic surgery (> 45 min) Malignancy Confined to bed (> 72 hours) Immobilizing plaster cast Central venous access Age >= 75 History of VTE Family history of VTE Factor V Leiden Prothrombin [id number] Lupus anticoagulant Anticardiolipin antibodies Elevated serum homocysteine Heparin-induced thrombocytopenia Other congenital or acquired thrombophilia Stroke (< 1 month) Elective arthroplasty Hip, pelvis, or leg fracture Acute spinal cord injury (< 1 month) Prophylaxis Regimen Total Risk Factor Score Risk Level Prophylaxis Regimen 0-1 Low Early ambulation 2 Moderate Order ONE of the following: *Sequential Compression Device (SCD) *Heparin 5000 units SQ BID 3-4 Higher Order ONE of the following medications: *Heparin 5000 units SQ TID *Enoxaparin/Lovenox 40 mg SQ daily (WT < 150 kg, CrCl > 30 mL/min) *Enoxaparin/Lovenox 30 mg SQ daily (WT < 150 kg, CrCl > 10-29 mL/min) *Enoxaparin/Lovenox 30 mg SQ BID (WT < 150 kg, CrCl > 30 mL/min) AND/OR *Sequential Compression Device (SCD) 5 or more Highest Order ONE of the following medications: *Heparin 5000 units SQ TID (Preferred with Epidurals) *Enoxaparin/Lovenox 40 mg SQ daily (WT < 150 kg, CrCl > 30 mL/min) *Enoxaparin/Lovenox 30 mg SQ daily (WT < 150 kg, CrCl > 10-29 mL/min) *Enoxaparin/Lovenox 30 mg SQ BID (WT < 150 kg, CrCl > 30 mL/min) AND *Sequential Compression Device (SCD) Assessment and Plan Assessment and Plan 89 yr old with hx of diverticulitis, aortic stenosis s/p AVR, CHF, and pacemaker presented with lower abdominal pain and bloody stools. Discharge: Mr Webster's does not want him to be in a SNF. She has help at home but he is very weak and cannot move much nor care for himself. Recommended checking out respite care and also have asked case management to speak to Mrs Webster about whatever options are available Problem List: (1) GI bleed ICD Codes: K92.2 - Gastrointestinal hemorrhage, unspecified Status: Acute Plan: 1 day hx of bloody stools CT demonstrated possible early colitis descending sigmoid colon. Previous TAVR with compensated cardiomegaly. Moderate arthrosclerotic vascular disease. H/H 10.8/32.9 Blood cultures 2x pending Type and Screen H/H q8h Antibiotics: Ciprofloxacin 400mg Premix q12h Flagyl 500mg IV q6h Protonix 40mg IV push BID Ondansetron 4mg IV push q6h for N/V NS 80mls/hr GI consulted, colonoscopy today (2) Colitis ICD Codes: K52.9 - Noninfective gastroenteritis and colitis, unspecified Status: Acute Plan: CT results as above antibiotics as above (3) Renal insufficiency ICD Codes: N28.9 - Disorder of kidney and ureter, unspecified Plan: Baseline Cr ~1.4 per 1 year chart review Cr. 1.49, BUN 24 Continue with NS and monitor (4) Heel ulcer ICD Codes: L97.409 - Non-pressure chronic ulcer of unspecified heel and midfoot with unspecified severity Plan: Wound care physician consulted (5) HTN (hypertension) ICD Codes: I10 - Essential (primary) hypertension Plan: -continue home Coreg and Furosemide (6) Arrhythmia ICD Codes: I49.9 - Cardiac arrhythmia, unspecified Status: Acute Plan: -Continue home Amiodarone (7) BPH (benign prostatic hyperplasia) ICD Codes: N40.0 - Benign prostatic hyperplasia without lower urinary tract symptoms Plan: -Continue home Finasteride (8) Gout ICD Codes: M10.9 - Gout, unspecified Plan: Continue home allopurinol (9) Neuropathy ICD Codes: G62.9 - Polyneuropathy, unspecified Plan: Continue home Gabapentin (10) Nutrition, metabolism, and development symptoms ICD Codes: R63.8 - Other symptoms and signs concerning food and fluid intake Plan: Diet: NPO for GI procedure Fluids: NS 80mls/hr vitals q4h, monitor I & Os DVTs: SCDs Problem Qualifiers (1) GI bleed: Qualified Codes: K92.2 - Gastrointestinal hemorrhage, unspecified (2) Heel ulcer: Qualified Codes: L97.409 - Non-pressure chronic ulcer of unspecified heel and midfoot with unspecified severity (3) HTN (hypertension): Qualified Codes: I10 - Essential (primary) hypertension (4) Arrhythmia: Qualified Codes: I49.9 - Cardiac arrhythmia, unspecified (5) BPH (benign prostatic hyperplasia): Qualified Codes: N40.0 - Benign prostatic hyperplasia without lower urinary tract symptoms (6) Gout: Qualified Codes: M10.9 - Gout, unspecified Alyce Griffith MD May 06, 2017 10:06
[2017-05-06] MEDS: AMIODARONE 200 MG TAB PO SCH (10:29)
[2017-05-06] MEDS: TAMSULOSIN HCL 0.4 MG CAP PO SCH (10:29)
[2017-05-06] MEDS: FUROSEMIDE 20 MG TAB PO SCH (10:31)
[2017-05-06] MEDS: ALLOPURINOL 100 MG TAB PO SCH (10:31)
[2017-05-06] MEDS: PANTOPRAZOLE SODIUM 40 MG VIAL IV PUSH SCH ×2 (10:32→21:57)
[2017-05-06] MEDS ORDERED: LIDOCAINE HCL 1% PF 5 ML SYRINGE OTHER ONE (12:00)
[2017-05-06] MEDS ORDERED: PHENYLEPH/NS 1000 MCG/10 ML SYR IV ONE (12:00)
[2017-05-06] MEDS ORDERED: GLYCOPYRROLATE 1 MG/5 ML SYRINGE IV PUSH ONE (12:00)
[2017-05-06] MEDS ORDERED: PROPOFOL 200 MG/20 ML AMP IV ONE (12:00)
[2017-05-06] MEDS: SODIUM CHLOR 0.9% 1000 ML INJ 1,000 ML IV SCH ×2 (12:10→23:43)
--- NOTE | 2017-05-06 14:29 | EKG ---
Date Performed: 05/06/2017 Time Performed: 00:08:54 PTAGE: 89 years EKG: ATRIAL PACING MARKED AV CONDUCTION DELAY SUPRAVENTRICULAR BEATS CLINICAL CORRELATION IS STR ONGLY RECOMMENDED ABNORMAL ECG PREVIOUS TRACING 05/05/2017 08.07.54 DOCTOR: Sergey Grubbs Interpretating Date/Time 05/06/2017 14:28:07
--- NOTE | 2017-05-06 14:51 | PD.PROCEDR ---
GI Procedure PROCEDURE PERFORMED Colonoscopy with biopsy INDICATION FOR PROCEDURE Bright red blood per rectum, abdominal pain, abnormal findings on CT suggestive of colitis, leukocytosis, anemia PROCEDURE: The procedure, risks and benefits were discussed with Mr. Webster and informed consent was obtained. Anesthesia sedated him with Diprivan. He was placed in the left lateral decubitus position. Colonoscopy: The Pentax videoscope was introduced through the rectum and advanced to cecum where the ileocecal valve and appendiceal orifice were identified. Retroflexion was performed in the rectum. Colonic prep was fair FINDINGS: Colonic withdrawal time greater than 6 minutes as the scope was slowly withdrawn colonic mucosa was carefully inspected the patient was noted to have scattered diverticulosis throughout the colon but more severe in the sigmoid there was also significant amount of edema and erythema in the sigmoid region this could be related to diverticulitis or an infectious process versus ischemic biopsies were taken retroflexion was unremarkable cells rectal examination ESTIMATED BLOOD LOSS: None SPECIMENS REMOVED: : Biopsies COMPLICATIONS: None IMPRESSION: Acute colitis mainly in the sigmoid region Diverticulosis PLAN: Await biopsies Continue antibiotics Low residue diet for now we'll then change to high fiber diet Continue with current supportive care Axel Mancini MD May 06, 2017 14:51
[2017-05-06] MEDS: FINASTERIDE 5 MG TAB PO SCH (15:38)
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
[2017-05-06 19:40] LABS: HEMOGLOBIN 10.7 GM/DL (13.0-17.0)
[2017-05-06] MEDS: GABAPENTIN 300 MG CAP PO SCH (21:58)
[2017-05-07] VITALS (9 sets, daily range): BP systolic 122–160; BP diastolic 58–72; PULSE 60–77; RESP 18–20; TEMP 96.4–98.2; O2SAT 20–98
[2017-05-07] MEDS: CIPROFLOXACIN 400 MG PREMIX 200 ML IV SCH ×2 (03:00→16:05)
[2017-05-07] MEDS: metroNIDAZOLE 500 MG INJ 100 ML IV SCH ×4 (03:17→23:49)
[2017-05-07 07:11] LABS: HEMATOCRIT 33.8 % (39.0-51.0); HEMOGLOBIN 11.2 GM/DL (13.0-17.0); MEAN CELL VOLUME 84.5 FL (80.0-100.0); MEAN CORPUSCULAR HEMOGLOBIN 28.1 PG (27.0-34.0); MEAN CORPUSCULAR HGB CONC 33.2 % (32.0-36.0); PLATELET COUNT 168 TH/MM3 (150-450); RED CELL DISTRIBUTION WIDTH 17.8 % (11.6-17.2); WHITE BLOOD COUNT 10.6 TH/MM3 (4.0-11.0)
[2017-05-07 07:30] LABS: BICARBONATE 28.5 MEQ/L (21.0-32.0); CALCIUM 9.2 MG/DL (8.5-10.1); CREATININE 1.3 MG/DL (0.60-1.30)
--- NOTE | 2017-05-07 08:48 | HHI.GIFU ---
Subjective Remarks Pt resting in bed in NAD. "I have no legs." Nonsensical speech but he does deny any abd pain. (Mary Verma) Objective Vitals I&O Vital Signs Date Time Temp Pulse Resp B/P (MAP) Pulse Ox O2 Delivery O2 Flow Rate FiO2 05/07/17 00:05 77 05/06/17 20:27 97.9 73 17 169/73 (105) 95 05/06/17 19:32 95 05/06/17 16:31 97.4 62 20 142/62 (88) 95 05/06/17 16:00 60 05/06/17 15:07 98.3 64 18 114/63 (80) 97 05/06/17 14:45 98.6 60 16 99/54 (69) 95 05/06/17 12:33 60 05/06/17 11:11 97.5 60 20 109/54 (72) 94 05/06/17 09:34 60 I/O 05/06/17 05/06/17 05/06/17 05/07/17 05/07/17 05/07/17 07:00 15:00 23:00 07:00 15:00 23:00 Intake Total 300 ml 200 ml 240 ml Balance 300 ml 200 ml 240 ml Intake Oral 240 ml IV Total 100 ml 200 ml Other 200 ml # Voids 3 1 3 # Bowel Movements 3 1 Laboratory Laboratory Tests Test 05/06/17 18:08 05/07/17 05:20 Hemoglobin 10.7 11.2 Hematocrit 32.0 33.8 White Blood Count 10.6 Red Blood Count 4.00 Mean Corpuscular Volume 84.5 Mean Corpuscular Hemoglobin 28.1 Mean Corpuscular Hemoglobin Concent 33.2 Red Cell Distribution Width 17.8 Platelet Count 168 Mean Platelet Volume 10.0 Blood Urea Nitrogen 18 Creatinine 1.30 Random Glucose 85 Calcium Level 9.2 Sodium Level 138 Potassium Level 3.6 Chloride Level 101 Carbon Dioxide Level 28.5 Anion Gap 9 Estimat Glomerular Filtration Rate 52 Date/Time Source Procedure Growth Status 05/05/17 11:15 Blood Peripheral Aerobic Blood Culture - Preliminary NO GROWTH IN 1 DAY Resulted 05/05/17 11:15 Blood Peripheral Anaerobic Blood Culture - Preliminary NO GROWTH IN 1 DAY Resulted Imaging Last Impressions Abdomen/Pelvis CT 05/05/17 0820 Signed Impressions: Service Date/Time: Friday, May 05, 2017 09:20 - CONCLUSION: Possible early colitis descending sigmoid colon. No free fluid or free air Previous TAVR with compensated cardiomegaly. Moderate atherosclerotic vascular disease. Jeremiah Ray MD FACR Physical Exam HEENT: PERRL; normocephalic; atraumatic; no jaundice. CHEST: CTA CARDIAC: irr HR ABDOMEN: Soft, nondistended, nontender; no hepatosplenomegaly; bowel sounds are present in all four quadrants. EXTREMITIES: No clubbing, cyanosis, or edema. SKIN: Normal; no rash; no jaundice. RETORT LOAD EXPEDITER: confused (Mary Verma) Assessment and Plan Plan ASSESSMENT - BRBPR, lower abd pain - ?colitis, CT suggests colitis. pt has hx diverticulitis but this is not seen on CT. had normal CT colonography 2015. Last colonoscopy 3 y ago and normal per pt. hx polyps. pt has been constipated and pain has improved since having several BM, but he is tender on exam - anemia - mild, not far from baseline, actually improved since February 2017 normocytic - leukocytosis - wbc 11 on flagyl and cipro - constipation - chronic, intermittent. 05/07/17 - HH is stable. no obvious bleeding. s/p colonoscopy found acute sigmoid colitis, diverticulosis. bx are pending. WBC was mildly elevated on admission and now WNL. PLAN - await bx - low res diet - monitor CBC - ok to d/c on PO abx for 14 more days - f/u with GI after d/c in 2 weeks - continue supportive care pt seen by myself and Dr Mancini and this note is written on his behalf (Mary Verma) Physician Comments Patient seen and examined Agree with above Continue with current supportive care Monitor labs We will sign off (Axel Mancini MD) Mary Verma May 07, 2017 08:48 Axel Mancini MD May 07, 2017 19:54
--- NOTE | 2017-05-07 09:07 | HHI.FPPN ---
Subjective Remarks Patient seen and examined this morning. Patient's is not at the bedside to assist with the history. Due to patient's baseline dementia, patient is not able to complete full review of systems or interval history. He is able to communicate that he is currently not in pain, short of breath, or has any chest pain. When the patient is asked where he is he states that he doesn't know he currently cannot provide the date/year on recall. (Uli Reece MD R2) Objective Vitals Vital Signs Date Time Temp Pulse Resp B/P (MAP) Pulse Ox O2 Delivery O2 Flow Rate FiO2 05/07/17 00:05 77 05/06/17 20:27 97.9 73 17 169/73 (105) 95 05/06/17 19:32 95 05/06/17 16:31 97.4 62 20 142/62 (88) 95 05/06/17 16:00 60 05/06/17 15:07 98.3 64 18 114/63 (80) 97 05/06/17 14:45 98.6 60 16 99/54 (69) 95 05/06/17 12:33 60 05/06/17 11:11 97.5 60 20 109/54 (72) 94 05/06/17 09:34 60 I/O 05/06/17 05/06/17 05/06/17 05/07/17 05/07/17 05/07/17 07:00 15:00 23:00 07:00 15:00 23:00 Intake Total 300 ml 200 ml 240 ml Balance 300 ml 200 ml 240 ml Intake Oral 240 ml IV Total 100 ml 200 ml Other 200 ml # Voids 3 1 3 # Bowel Movements 3 1 (Uli Reece MD R2) Result Diagram: 05/07/17 0520 05/07/17 0520 Objective Remarks GENERAL: Well-nourished, well-developed elderly male lying in bed in no acute distress. SKIN: Warm and dry. No rash. Multiple ecchymoses at different stages of healing on the upper extremities due to venipuncture. HEENT: Atraumatic, normocephalic with extraocular motions intact. No rhinorrhea. No visible lymphadenopathy or jugulovenous distension appreciated. CARDIOVASCULAR: Regular rate and rhythm without obvious murmurs, gallops, or rubs. 2+ pulses in all four extremities. RESPIRATORY: Clear to auscultation bilaterally with no crackles, wheezes, or rhonchi. No increaed work of breathing. GASTROINTESTINAL: Abdomen soft, non-tender, nondistended with positive bowel sounds in all 4 quadrants. No masses appreciated. MUSCULOSKELETAL: No cyanosis or edema. No calf tenderness. NEURO/PSYCH: Afocal. PTT 0. Patient unable to complete full history and review of systems. Patient with nonsensical speech. (Uli Reece MD R2) A/P Assessment and Plan 89 yr old with hx of diverticulitis, aortic stenosis s/p AVR, CHF, and pacemaker presented with lower abdominal pain and bloody stools. Discharge: Mr Webster's does not want him to be in a SNF. She has help at home but he is very weak and cannot move much nor care for himself. Recommended checking out respite care and also have asked case management to speak to Mrs Webster about whatever options are available Discharge Planning Pending final GI recommendations Plan to DC home on Flagyl and Ciprofloxacin for colitis Patient with previous home health PT/nursing orders (Uli Reece MD R2) Attending Attestation Patient seen and examined. Case reviewed and discussed with the resident team. Agree with plan of care as discussed with me and documented in the resident note. Mr Webster fortunately has had no more bleeding ans is stabilizing with his H/H (Alyce Griffith MD) Problem List: (1) GI bleed ICD Codes: K92.2 - Gastrointestinal hemorrhage, unspecified Status: Acute Plan: 1 day hx of bloody stools CT demonstrated possible early colitis descending sigmoid colon. Previous TAVR with compensated cardiomegaly. Moderate arthrosclerotic vascular disease. H/H stable Blood cultures 2x NTD Type and Screen Antibiotics: Ciprofloxacin 400mg Premix q12h (05/05- ) Flagyl 500mg IV q6h (05/05- ) Protonix 40mg IV push BID Ondansetron 4mg IV push q6h for N/V NS 80mls/hr GI consulted, appreciated recommendations -Colonoscopy: Scattered diverticulosis throughout the colon, but more severe in the sigmoid where there is also significant amount of edema and erythema in the sigmoid region. Likely related to diverticulitis or infectious process versus ischemic pathology. Biopsies were taken with unremarkable retroflexion. (2) Colitis ICD Codes: K52.9 - Noninfective gastroenteritis and colitis, unspecified Status: Acute Plan: CT and colonoscopy results as above antibiotics as above (3) Renal insufficiency ICD Codes: N28.9 - Disorder of kidney and ureter, unspecified Plan: Baseline Cr ~1.4 per 1 year chart review Cr. 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 with unspecified severity Plan: Wound care physician consulted (5) HTN (hypertension) ICD Codes: I10 - Essential (primary) hypertension Plan: -continue home Coreg and Furosemide (6) Arrhythmia ICD Codes: I49.9 - Cardiac arrhythmia, unspecified Status: Acute Plan: -Continue home Amiodarone (7) BPH (benign prostatic hyperplasia) ICD Codes: N40.0 - Benign prostatic hyperplasia without lower urinary tract symptoms Plan: -Continue home Finasteride (8) Gout ICD Codes: M10.9 - Gout, unspecified Plan: Continue home allopurinol (9) Neuropathy ICD Codes: G62.9 - Polyneuropathy, unspecified Plan: Continue home Gabapentin (10) Nutrition, metabolism, and development symptoms ICD Codes: R63.8 - Other symptoms and signs concerning food and fluid intake Plan: Diet: NPO for GI procedure Fluids: NS 80mls/hr vitals q4h, monitor I & Os DVTs: SCDs (Uli Reece MD R2) Problem Qualifiers (1) GI bleed: Qualified Codes: K92.2 - Gastrointestinal hemorrhage, unspecified (2) Heel ulcer: Qualified Codes: L97.409 - 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
[2017-05-07] MEDS ORDERED: CALCIUM CARBONATE 500 MG CHEWABLE TAB CHEW ONE (09:15)
[2017-05-07] MEDS: FINASTERIDE 5 MG TAB PO SCH (09:44)
[2017-05-07] MEDS: SODIUM CHLORIDE 0.9% FLUSH 10 ML FLUSH IV FLUSH SCH ×2 (09:44→21:00)
[2017-05-07] MEDS: CARVEDILOL 3.125 MG TAB PO SCH ×3 (09:44→23:49)
[2017-05-07] MEDS: FUROSEMIDE 20 MG TAB PO SCH (09:44)
[2017-05-07] MEDS: AMIODARONE 200 MG TAB PO SCH (09:44)
[2017-05-07] MEDS: ALLOPURINOL 100 MG TAB PO SCH (09:44)
[2017-05-07] MEDS: LACTOBACILLUS ACIDOPHILUS 1 GM PACKET PO SCH (09:44)
[2017-05-07] MEDS: PANTOPRAZOLE SODIUM 40 MG VIAL IV PUSH SCH ×2 (09:44→23:49)
[2017-05-07] MEDS: TAMSULOSIN HCL 0.4 MG CAP PO SCH (09:44)
--- NOTE | 2017-05-07 11:41 | HHI.DCPOC ---
Discharge Care Plan Diagnosis: (1) Colitis (2) GI bleed Goals to Promote Your Health * To prevent worsening of your condition and complications * To maintain your health at the optimal level Directions to Meet Your Goals Take your medications as prescribed Follow your dietary instruction Follow activity as directed Keep your appointments as scheduled Take your immunizations and boosters as scheduled If your symptoms worsen call your PCP, if no PCP go to Urgent Care Center or Emergency Room Smoking is Dangerous to Your Health. Avoid second hand smoke Call the 24-hour hour crisis hotline for domestic abuse at Uli Reece MD R2 May 07, 2017 11:41
[2017-05-07] MEDS ORDERED: PROT40TA PO (14:31)
[2017-05-07] MEDS ORDERED: LACTG PO (14:31)
[2017-05-07] MEDS ORDERED: CIPR-9 PO (14:32)
[2017-05-07] MEDS ORDERED: METR-1 PO (14:32)
[2017-05-07] MEDS: SODIUM CHLOR 0.9% 1000 ML INJ 1,000 ML IV SCH (16:07)
[2017-05-07] MEDS: GABAPENTIN 300 MG CAP PO SCH (23:49)
[2017-05-08] MEDS: SODIUM CHLOR 0.9% 1000 ML INJ 1,000 ML IV SCH (01:40)
[2017-05-08] MEDS: CIPROFLOXACIN 400 MG PREMIX 200 ML IV SCH (02:48)
[2017-05-08] MEDS: metroNIDAZOLE 500 MG INJ 100 ML IV SCH (04:11)
[2017-05-08 08:35] VITALS: PULSE 65
[2017-05-08 09:26] VITALS: BP 140/68; PULSE 60; RESP 20; TEMP 98.2; O2SAT 98
--- NOTE | 2017-05-08 10:21 | HHI.FPPN ---
Subjective Remarks Had long discussion with Mrs Webster, her daughter Mer by phone, and Mr Webster as well as case management. Hospice had met with them 3 weeks ago but Mr Webster was not quite ready at that time. His is distressed about his decline over time and his acute worsening especially with some delirium. I discussed with her that as she and her don't want any abx or procedures or other treatments that hospice is very appropriate. He may be able to go to a care center as he is acutely worse and normally mentally clear but now is fluctuating with his mental status and "talking nonsense" at times. Otherwise, we discussed that [facility] will pay for a rehab place but not until Wednesday, most likely, as this is a holiday weekend even though he is an Obs pt. Mrs Webster is concerned about him being able to transfer for safety and get some PT so he can move more. She doesn't really want extensive rehab for him. Mr Webster is able to sit up and smile and feed himself this am. He is not at his baseline mentally however. Objective Vitals Vital Signs Date Time Temp Pulse Resp B/P (MAP) Pulse Ox O2 Delivery O2 Flow Rate FiO2 05/08/17 09:26 98.2 60 20 140/68 (92) 98 05/07/17 20:32 96.4 60 20 141/71 (94) 95 05/07/17 19:53 95 05/07/17 16:15 60 05/07/17 15:59 98.2 68 20 122/60 (80) 96 05/07/17 12:30 98.2 60 20 160/72 (101) 98 05/07/17 12:15 60 I/O 05/07/17 05/07/17 05/07/17 05/08/17 05/08/17 05/08/17 07:00 15:00 23:00 07:00 15:00 23:00 Intake Total 240 ml 1080 ml Output Total 3 ml Balance 240 ml 1077 ml Intake Oral 240 ml IV Total 1080 ml Output Urine Total 3 ml # Voids 3 # Bowel Movements 1 0 Result Diagram: 05/07/17 0520 05/07/17 0520 Objective Remarks GENERAL: Well-nourished, well-developed elderly male lying in bed in no acute distress somewhat responsive to those around him.. SKIN: Warm and dry. No rash. Multiple ecchymoses at different stages of healing on the upper extremities due to venipuncture. HEENT: Atraumatic, normocephalic with extraocular motions intact. No rhinorrhea. No visible lymphadenopathy or jugulo venous distension appreciated. CARDIOVASCULAR: Regular rate and rhythm without obvious murmurs, gallops, or rubs. 2+ pulses in all four extremities. RESPIRATORY: Clear to auscultation bilaterally with no crackles, wheezes, or rhonchi. No increased work of breathing. GASTROINTESTINAL: Abdomen soft, non-tender, nondistended with positive bowel sounds in all 4 quadrants. No masses appreciated. MUSCULOSKELETAL: No cyanosis or edema. No calf tenderness. NEURO/PSYCH: Afocal. PTT 0. Patient unable to complete full history and review of systems. Patient with nonsensical speech. Urinary Catheter: No Vascular Central Line Catheter: No A/P Assessment and Plan 89 yr old with hx of diverticulitis, aortic stenosis s/p AVR, CHF, and pacemaker presented with lower abdominal pain and bloody stools. Discharge: Mr Webster's does not want him to be in a SNF. She has help at home but he is very weak and cannot move much nor care for himself. Recommended hospice as he has a living will and is declining so much over time. Can also look into rehab or potentially rehab/SNF with hospice or home with hospice Discharge Planning Pending final GI recommendations Plan to DC home on Flagyl and Ciprofloxacin for colitis Patient with previous home health PT/nursing orders Problem List: (1) GI bleed ICD Codes: K92.2 - Gastrointestinal hemorrhage, unspecified Status: Acute Plan: 1 day hx of bloody stools CT demonstrated possible early colitis descending sigmoid colon. Previous TAVR with compensated cardiomegaly. Moderate arthrosclerotic vascular disease. H/H stable Blood cultures 2x NTD Type and Screen Antibiotics: Ciprofloxacin 400mg Premix q12h (05/05- ) Flagyl 500mg IV q6h (05/05- ) Protonix 40mg IV push BID Ondansetron 4mg IV push q6h for N/V NS 80mls/hr GI consulted, appreciated recommendations -Colonoscopy: Scattered diverticulosis throughout the colon, but more severe in the sigmoid where there is also significant amount of edema and erythema in the sigmoid region. Likely related to diverticulitis or infectious process versus ischemic pathology. Biopsies were taken with unremarkable retroflexion. Mrs Webster regrets doing the colonoscopy as he is more delirious and she believes the anesthesia contributed to this. She refuses any blood draws or further workup or meds for this including abx so these were stopped. (2) Colitis ICD Codes: K52.9 - Noninfective gastroenteritis and colitis, unspecified Status: Acute Plan: CT and colonoscopy results as above refuses abx (3) Renal insufficiency ICD Codes: N28.9 - Disorder of kidney and ureter, unspecified Plan: Baseline Cr ~1.4 per 1 year chart review Cr. 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 with unspecified severity Plan: Wound care physician consulted (5) HTN (hypertension) ICD Codes: I10 - Essential (primary) hypertension Plan: -continue home Coreg and Furosemide (6) Arrhythmia ICD Codes: I49.9 - Cardiac arrhythmia, unspecified Status: Acute Plan: -Continue home Amiodarone (7) BPH (benign prostatic hyperplasia) ICD Codes: N40.0 - Benign prostatic hyperplasia without lower urinary tract symptoms Plan: -Continue home Finasteride (8) Gout ICD Codes: M10.9 - Gout, unspecified Plan: Continue home allopurinol (9) Neuropathy ICD Codes: G62.9 - Polyneuropathy, unspecified Plan: Continue home Gabapentin (10) Nutrition, metabolism, and development symptoms ICD Codes: R63.8 - Other symptoms and signs concerning food and fluid intake Plan: Diet:eating today Fluids: NS 80mls/hr vitals q4h, monitor I & Os DVTs: SCDs Problem Qualifiers (1) GI bleed: Qualified Codes: K92.2 - Gastrointestinal hemorrhage, unspecified (2) Heel ulcer: Qualified Codes: L97.409 - 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
[2017-05-08] MEDS: TAMSULOSIN HCL 0.4 MG CAP PO SCH (11:16)
[2017-05-08] MEDS: AMIODARONE 200 MG TAB PO SCH (11:16)
[2017-05-08] MEDS: FUROSEMIDE 20 MG TAB PO SCH (11:16)
[2017-05-08] MEDS: ALLOPURINOL 100 MG TAB PO SCH (11:16)
[2017-05-08] MEDS: CARVEDILOL 3.125 MG TAB PO SCH ×2 (11:17→23:23)
[2017-05-08] MEDS: LACTOBACILLUS ACIDOPHILUS 1 GM PACKET PO SCH (11:17)
[2017-05-08] MEDS: PANTOPRAZOLE SODIUM 40 MG VIAL IV PUSH SCH (11:17)
[2017-05-08] MEDS: FINASTERIDE 5 MG TAB PO SCH (11:18)
[2017-05-08] MEDS: SODIUM CHLORIDE 0.9% FLUSH 10 ML FLUSH IV FLUSH SCH ×2 (11:18→23:23)
[2017-05-08 12:09] VITALS: BP 135/98; PULSE 80; RESP 18; TEMP 97.9; O2SAT 96
[2017-05-08 15:30] VITALS: PULSE 82
[2017-05-08 16:25] VITALS: BP 130/65; PULSE 60; RESP 18; TEMP 97.9; O2SAT 96
[2017-05-08 20:17] VITALS: BP 139/68; PULSE 60; RESP 18; TEMP 97.1; O2SAT 95
[2017-05-08] MEDS: PANTOPRAZOLE SOD 40 MG DELAYED RELEASE TAB PO SCH (23:23)
[2017-05-08] MEDS: GABAPENTIN 300 MG CAP PO SCH (23:23)
[2017-05-09 00:56] VITALS: BP 130/68; PULSE 62; RESP 17; TEMP 97.9; O2SAT 96
[2017-05-09 03:54] VITALS: BP 132/68; PULSE 63; RESP 17; TEMP 97.9; O2SAT 96
[2017-05-09 07:27] VITALS: PULSE 60
[2017-05-09 07:51] VITALS: BP 140/69; PULSE 68; RESP 20; TEMP 98.2; O2SAT 96
[2017-05-09] MEDS: ALLOPURINOL 100 MG TAB PO SCH (09:00)
[2017-05-09] MEDS: SODIUM CHLORIDE 0.9% FLUSH 10 ML FLUSH IV FLUSH SCH (09:00)
[2017-05-09] MEDS: AMIODARONE 200 MG TAB PO SCH (09:00)
[2017-05-09] MEDS: LACTOBACILLUS ACIDOPHILUS 1 GM PACKET PO SCH (09:00)
[2017-05-09] MEDS: PANTOPRAZOLE SOD 40 MG DELAYED RELEASE TAB PO SCH (09:00)
[2017-05-09] MEDS: TAMSULOSIN HCL 0.4 MG CAP PO SCH (09:00)
[2017-05-09] MEDS: CARVEDILOL 3.125 MG TAB PO SCH (09:00)
[2017-05-09] MEDS: FINASTERIDE 5 MG TAB PO SCH (09:00)
--- NOTE | 2017-05-09 09:13 | HHI.FPPN ---
Subjective Remarks Patient seen and examined this morning with at bedside. No acute events overnight per nursing staff. Vital signs remained within normal limits without oxygen assistance. Patient's has multiple complaints this morning. Her she states that she is refusing any antibiotics as he has had multiple antibiotics over the last few weeks for multiple reasons and states that "he possibly can't need anymore." She also feels that these antibiotics have made his mental status decline and she is currently refusing any medications or IV placement at this time. She also feels that he is more congested this morning with a cough and is requesting further evaluation. She also reports that after discussion with hospice yesterday, she would like him to go to rehabilitation so that he can come home, however if that does not work she may be open to hospice placement in the future. However at this time she is adamant that she wants "nothing to do with hospice." She has been told by case management that he has been approved for placement to the [facility] for tomorrow, however per case management's notes authorization from [facility] is still pending. Mr. Webster is unable to participate in the interview and history, however does state that he needs to use the restroom and is in no pain. (Uli Reece MD R2) Objective Vitals Vital Signs Date Time Temp Pulse Resp B/P (MAP) Pulse Ox O2 Delivery O2 Flow Rate FiO2 05/09/17 07:51 98.2 68 20 140/69 (92) 96 05/09/17 07:27 60 05/09/17 03:54 97.9 63 17 132/68 (89) 96 05/09/17 00:56 97.9 62 17 130/68 (88) 96 05/08/17 20:17 97.1 60 18 139/68 (91) 95 05/08/17 16:25 97.9 60 18 130/65 (86) 96 05/08/17 15:30 82 05/08/17 12:09 97.9 80 18 135/98 (110) 96 05/08/17 09:26 98.2 60 20 140/68 (92) 98 I/O 05/08/17 05/08/17 05/08/17 05/09/17 05/09/17 05/09/17 07:00 15:00 23:00 07:00 15:00 23:00 Intake Total 320 ml Balance 320 ml Lipid 320 ml (Uli Reece MD R2) Result Diagram: 05/07/1751905/07/17519 Objective Remarks GENERAL: Frail elderly male lying in bed in no acute distress somewhat responsive to those around him. SKIN: Warm and dry. No rash. Multiple ecchymoses at different stages of healing on the upper extremities due to venipuncture and telemetry lead placement. HEENT: Atraumatic, normocephalic with extraocular motions intact. No rhinorrhea. No visible lymphadenopathy or jugulovenous distension appreciated. CARDIOVASCULAR: Regular rate and rhythm without obvious murmurs, gallops, or rubs. 2+ pulses in all four extremities. RESPIRATORY: Crackles at the bilateral bases without wheezing. No increased work of breathing. GASTROINTESTINAL: Abdomen soft, non-tender, nondistended with positive bowel sounds in all 4 quadrants. No masses appreciated. MUSCULOSKELETAL: No cyanosis or edema. No calf tenderness. NEURO/PSYCH: PTT 0. Patient unable to complete full history and review of systems. Patient with nonsensical speech at times but does complain he needs to use the restroom and is in no pain. (Uli Reece MD R2) A/P Assessment and Plan 89 yr old with hx of diverticulitis, aortic stenosis s/p AVR, CHF, and pacemaker presented with lower abdominal pain and bloody stools. Discharge: Mr Webster's does not want him to be in a SNF. She has help at home but he is very weak and cannot move much nor care for himself. Recommended hospice as he has a living will and is declining so much over time. Can also look into rehab or potentially rehab/SNF with hospice or home with hospice Discharge Planning Pending tna authorization for rehabilitation placement Hospice consulted, however would like to be discharged to rehabilitation at this time (Uli Reece MD R2) Attending Attestation Patient seen and examined. Case reviewed and discussed with the resident team. Agree with plan of care as discussed with me and documented in the resident note. after many discussion and much deliberation, the decision to go with hospice was made. poor Mr Webster is so frail and has declined so much overall that hospice is a great choice. he would not be able to do rehab as he is so weak. greatly appreciate all the help from hospice! (Alyce Griffith MD) Problem List: (1) GI bleed ICD Codes: K92.2 - Gastrointestinal hemorrhage, unspecified Status: Acute Plan: 1 day hx of bloody stools CT demonstrated possible early colitis descending sigmoid colon. Previous TAVR with compensated cardiomegaly. Moderate arthrosclerotic vascular disease. H/H stable Blood cultures 2x NTD Type and Screen Antibiotics: Ciprofloxacin 400mg Premix q12h (05/05-05/08) Flagyl 500mg IV q6h (05/05-05/08) - refusing antibiotics at this time as he "couldn't possibly need anymore" Protonix 40mg IV push BID Ondansetron 4mg IV push q6h for N/V NS 80mls/hr -All IV medication and refused as refuses to have IV placed GI consulted, appreciated recommendations -Colonoscopy: Scattered diverticulosis throughout the colon, but more severe in the sigmoid where there is also significant amount of edema and erythema in the sigmoid region. Likely related to diverticulitis or infectious process versus ischemic pathology. Biopsies were taken with unremarkable retroflexion. Mrs Webster regrets doing the colonoscopy as he is more delirious and she believes the anesthesia contributed to this. She refuses any blood draws or further workup or meds for this including abx so these were stopped. (2) Bibasilar crackles ICD Codes: R09.89 - Other specified symptoms and signs involving the circulatory and respiratory systems Status: Acute Plan: Patient with bibasilar crackles on exam without deoxygenation on vital sign checks - are agreeable to chest x-ray at this time -Regarding discussion about possible antibiotics for pneumonia, the states she would like to have the chest x-ray completed first (3) Colitis ICD Codes: K52.9 - Noninfective gastroenteritis and colitis, unspecified Status: Acute Plan: CT and colonoscopy results as above - currently refusing antibiotics (4) Renal insufficiency ICD Codes: N28.9 - Disorder of kidney and ureter, unspecified Status: Chronic Plan: Baseline Cr ~1.4 per 1 year chart review Cr. 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 with unspecified severity Status: Chronic Plan: Wound care physician consulted (6) HTN (hypertension) ICD Codes: I10 - Essential (primary) hypertension Status: Chronic Plan: -continue home Coreg and Furosemide (7) Arrhythmia ICD Codes: I49.9 - Cardiac arrhythmia, unspecified Status: Acute Plan: -Continue home Amiodarone (8) BPH (benign prostatic hyperplasia) ICD Codes: N40.0 - Benign prostatic hyperplasia without lower urinary tract symptoms Status: Chronic Plan: -Continue home Finasteride (9) Gout ICD Codes: M10.9 - Gout, unspecified Status: Chronic Plan: Continue home allopurinol (10) Neuropathy ICD Codes: G62.9 - Polyneuropathy, unspecified Status: Chronic Plan: Continue home Gabapentin (11) Nutrition, metabolism, and development symptoms ICD Codes: R63.8 - Other symptoms and signs concerning food and fluid intake Status: Acute Plan: Diet:eating today Fluids: Refused vitals q4h, monitor I & Os DVTs: SCDs (Uli Reece MD R2) Problem Qualifiers (1) GI bleed: Qualified Codes: K92.2 - Gastrointestinal hemorrhage, unspecified (2) Heel ulcer: Qualified Codes: L97.409 - 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
--- NOTE | 2017-05-09 10:11 | RADRPT ---
EXAM DATE/TIME: 05/09/2017 09:42 [place] COMPARISON: CT ABDOMEN & PELVIS W CONTRAST, May 05, 2017, 9:20. CHEST SINGLE AP, April 28, 2017, 15:58. INDICATIONS : Aspirated and congestion. MEDICAL HISTORY : Congestive heart failure. Hypotension, aortic valve stenosis, gout. SURGICAL HISTORY : Pacemaker. Aortic valve replacement ENCOUNTER: Initial ACUITY: 1 day PAIN SCORE: Non-responsive. LOCATION: Bilateral chest FINDINGS: Increasing consolidative infiltrates in the left lower lobe with air bronchograms. Left hemidiaphrag m remains well delineated. Pleuroparenchymal calcifications the lateral mid and upper lungs bilatera lly are stable. Heart is mildly enlarged. Cardiac pacer leads and aortic valve stent are stable. CONCLUSION: Increasing infiltrates in the left lower lung. Barak Goldberg MD on May 09, 2017 at 10:07 Board Certified Radiologist. This report was verified electronically.
--- NOTE | 2017-05-09 14:12 | HHI.DS ---
Discharge Summary Admission Date May 05, 2017 at 10:14 Discharge Date: May 09, 2017 Admitting Diagnosis GI bleed, colitis (1) GI bleed Diagnosis: Principal Plan: 1 day hx of bloody stools CT demonstrated possible early colitis descending sigmoid colon. Previous TAVR with compensated cardiomegaly. Moderate arthrosclerotic vascular disease. H/H stable Blood cultures 2x NTD Type and Screen Antibiotics: Ciprofloxacin 400mg Premix q12h (05/05-05/08) Flagyl 500mg IV q6h (05/05-05/08) - refusing antibiotics at this time as he "couldn't possibly need anymore" Protonix 40mg IV push BID Ondansetron 4mg IV push q6h for N/V NS 80mls/hr -All IV medication and refused as refuses to have IV placed GI consulted, appreciated recommendations -Colonoscopy: Scattered diverticulosis throughout the colon, but more severe in the sigmoid where there is also significant amount of edema and erythema in the sigmoid region. Likely related to diverticulitis or infectious process versus ischemic pathology. Biopsies were taken with unremarkable retroflexion. Mrs Webster regrets doing the colonoscopy as he is more delirious and she believes the anesthesia contributed to this. She refuses any blood draws or further workup or meds for this including abx so these were stopped. ICD Codes: K92.2 - Gastrointestinal hemorrhage, unspecified Status: Acute (2) Bibasilar crackles Diagnosis: Principal Plan: Patient with bibasilar crackles on exam without deoxygenation on vital sign checks - are agreeable to chest x-ray at this time -Regarding discussion about possible antibiotics for pneumonia, the states she would like to have the chest x-ray completed first ICD Codes: R09.89 - Other specified symptoms and signs involving the circulatory and respiratory systems Status: Acute (3) Colitis Diagnosis: Principal Plan: CT and colonoscopy results as above - currently refusing antibiotics ICD Codes: K52.9 - Noninfective gastroenteritis and colitis, unspecified Status: Acute (4) Renal insufficiency Diagnosis: Secondary Plan: Baseline Cr ~1.4 per 1 year chart review Cr. 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 with unspecified severity Status: Chronic (6) HTN (hypertension) Diagnosis: Secondary Plan: -continue home Coreg and Furosemide ICD Codes: I10 - Essential (primary) hypertension Status: Chronic (7) Arrhythmia Diagnosis: Secondary Plan: -Continue home Amiodarone ICD Codes: I49.9 - Cardiac arrhythmia, unspecified Status: Acute (8) BPH (benign prostatic hyperplasia) Plan: -Continue home Finasteride ICD Codes: N40.0 - Benign prostatic hyperplasia without lower urinary tract symptoms Status: Chronic (9) Gout Diagnosis: Secondary Plan: Continue home allopurinol ICD Codes: M10.9 - Gout, unspecified Status: Chronic (10) Neuropathy Diagnosis: Secondary Plan: Continue home Gabapentin ICD Codes: G62.9 - Polyneuropathy, unspecified Status: Chronic (11) Nutrition, metabolism, and development symptoms Diagnosis: Principal Plan: Diet:eating today Fluids: Refused vitals q4h, monitor I & Os DVTs: SCDs ICD Codes: R63.8 - Other symptoms and signs concerning food and fluid intake Status: Acute Brief History Mr Webster is an 89 yr old with hx of diverticulitis, aortic stenosis s/p TAVR, CHF, and pacemaker presented with lower abdominal pain and bloody stools. Accompanied by , who provides all of the history. Reports that patient had severe constipation last and has been taking stool softeners and laxatives. The evening before admission after taking two stool softeners, patient had loose stools and moderate lower abdominal cramps. Then patient had bright red bloody bowel movements. is unsure how much blood in stools. thought it might have been due to hemorrhoids, but was very concerned and called 911. Patient was brought to hospital by [facility]. Patient has been very fatigued. Patient is currently not on anticoagulants. Had a CT colonography last year at Dr. Ramirez's office per . Denies fevers, CP, SOB, and N/V. He is very frail and bedridden and the pt is a very poor historian. His provides all the history. He has not been having bleeding overnight per his . He is scheduled for colonoscopy today. He has colitis with inflammation per his CT scan. CBC/BMP: 05/07/17 0520 05/07/17 0520 Significant Findings Laboratory Tests Test 05/06/17 18:08 05/07/17 05:20 Hemoglobin 10.7 GM/DL (13.0-17.0) 11.2 GM/DL (13.0-17.0) Hematocrit 32.0 % (39.0-51.0) 33.8 % (39.0-51.0) Red Blood Count 4.00 MIL/MM3 (4.50-5.90) Red Cell Distribution Width 17.8 % (11.6-17.2) Estimat Glomerular Filtration Rate 52 ML/MIN (>89) PE at Discharge GENERAL: Frail elderly male lying in bed in no acute distress somewhat responsive to those around him. SKIN: Warm and dry. No rash. Multiple ecchymoses at different stages of healing on the upper extremities due to venipuncture and telemetry lead placement. HEENT: Atraumatic, normocephalic with extraocular motions intact. No rhinorrhea. No visible lymphadenopathy or jugulovenous distension appreciated. CARDIOVASCULAR: Regular rate and rhythm without obvious murmurs, gallops, or rubs. 2+ pulses in all four extremities. RESPIRATORY: Crackles at the bilateral bases without wheezing. No increased work of breathing. GASTROINTESTINAL: Abdomen soft, non-tender, nondistended with positive bowel sounds in all 4 quadrants. No masses appreciated. MUSCULOSKELETAL: No cyanosis or edema. No calf tenderness. NEURO/PSYCH: PTT 0. Patient unable to complete full history and review of systems. Patient with nonsensical speech at times but does complain he needs to use the restroom and is in no pain. Hospital Course She was admitted on 05/05/17 for abdominal pain and bright red blood per rectum. CT scan showed early colitis of the descending sigmoid colon. Gastroenterology was consulted who completed colonoscopy without complications on 05/06/17. Colonoscopy showed scattered diverticulosis throughout the colon that was more severe in the sigmoid area with edema and erythema consistent with diverticulitis versus infectious/ischemic pathology. Biopsies were taken. Patient to follow-up with gastroenterology in 2 weeks for biopsy results. Patient was covered with ciprofloxacin and Flagyl antibiotics during hospitalization, however his refused antibiotics on 05/08/17 stating that "he couldn't possibly need anymore." Medically patient did well throughout the hospitalization with vital signs within normal limits and stable hemoglobin. On 05/09/17, per his the patient sounded more congested with inspiratory/expiratory crackles on exam. Chest x-ray showed increasing left lower lobe pneumonia, however his continued to refuse antibiotics and requested discharge. Initially his refused rehabilitation placement, however was acceptable to placement at the end of his hospitalization. However after discussion with hospice in the primary medical team in regard to his care needs and quality of life goals, his has elected to be discharged into the hospice care center. Orders were placed and patient be transferred on 05/09/17. Pt Condition on Discharge: Deteriorating Discharge Disposition: Hospice/Med Facility Discharge Instructions DIET: Follow Instructions for: Heart Healthy Diet (As tolerated, needs swallow evaluation) Speech Therapy-Diet Recommends: Mechanical Soft Activities you can perform: See Additionl Instruction Other Activity Instructions: OOB with assistance Follow up Referrals: Gastroenterology - 2 Weeks PCP Follow-up - 3-5 Days New Medications: Lactobacillus Acidophilus (Floranex) 1 Gm Pkt 1 GM PO DAILY, #30 PACKET 1 Refill Changed Medications: Pantoprazole (Protonix) 40 Mg Tab 40 MG PO BID for Reflux, #60 TAB 0 Refills (Changed from: DAILY; 30) Continued Medications: Alendronate (Fosamax) 70 Mg Tab 70 MG PO Q7D for Osteoporosis Treatment, #4 TAB 0 Refills Allopurinol (Zyloprim) 100 Mg Tab 100 MG PO DAILY for Gout, #30 TAB 0 Refills Amiodarone (Amiodarone) 200 Mg Tab 200 MG PO DAILY for Regulate Heart Beat, #0 TAB [address] (Aspirin 81) 81 Mg Tabdr 81 MG PO DAILY, TAB 0 Refills Carvedilol (Coreg) 3.125 Mg Tab 3.125 MG PO DAILY, #60 TAB 0 Refills Cholecalciferol (Vitamin D3) 5,000 Unit Cap 5000 UNITS PO DAILY for Nutritional Supplement, #30 CAP 0 Refills Coenzyme Q10 (Ubidecarenone) (Coenzyme Q10 (Ubidecarenone)) 100 Mg Cap 100 MG PO DAILY Cyanocobalamin (B12) 1,000 Mcg Tab 1000 MG PO DAILY Dutasteride-Tamsulosin (Mamie) 0.5-0.4 Mg Cap 1 CAP PO DAILY for Manage Prostate Problems, #30 CAP 0 Refills Ferrous Sulfate (Ferrous Sulfate) 325 Mg (65 Mg Iron) Tablet 65 MG PO DAILY for Nutritional Supplement, #30 TAB 0 Refills Furosemide (Furosemide) 20 Mg Tab 20 MG PO DAILY, #0 TAB 0 Refills Gabapentin (Gabapentin) 300 Mg Cap 300 MG PO HS, #30 CAP 0 Refills [place]-3 Fatty Acids ([place] 3 500 500 mg) 1 Cap Cap 500 MG PO DAILY Uli Reece MD R2 May 09, 2017 14:12
== END 2017-05-09 16:04 | disposition hospice, inpatient (51) ==
LOC: NEPE 08:02 → NEDA 10:14 → NEPGCP 14:58
PROVIDERS: ADMIT Family Medicine; ATTEND Family Medicine
DX: K92.2 Gastrointestinal hemorrhage, unspecified (principal); K52.9 Noninfective gastroenteritis and colitis, unspecified; N28.9 Disorder of kidney and ureter, unspecified; K57.90 Diverticulosis of intestine, part unspecified, without perforation or abscess without bleeding; J18.9 Pneumonia, unspecified organism; D64.9 Anemia, unspecified; L97.409 Non-pressure chronic ulcer of unspecified heel and midfoot with unspecified severity; I49.9 Cardiac arrhythmia, unspecified; M10.9 Gout, unspecified; G62.9 Polyneuropathy, unspecified; I11.0 Hypertensive heart disease with heart failure; I50.9 Heart failure, unspecified; I70.90 Unspecified atherosclerosis; I35.0 Nonrheumatic aortic (valve) stenosis; R94.31 Abnormal electrocardiogram [ECG] [EKG]; K21.9 Gastro-esophageal reflux disease without esophagitis; F03.90 Unspecified dementia, unspecified severity, without behavioral disturbance, psychotic disturbance, mood disturbance, and anxiety; H91.90 Unspecified hearing loss, unspecified ear; M19.90 Unspecified osteoarthritis, unspecified site; N40.0 Benign prostatic hyperplasia without lower urinary tract symptoms; Z79.82 Long term (current) use of aspirin; Z95.2 Presence of prosthetic heart valve; Z95.0 Presence of cardiac pacemaker; Z85.01 Personal history of malignant neoplasm of esophagus; Z85.89 Personal history of malignant neoplasm of other organs and systems; Z87.891 Personal history of nicotine dependence; Z66 Do not resuscitate
CPT/HCPCS: 00811; 45380; 71045; 74177; 80048; 85014; 85018; 85025; 85027; 85610; 85730; 86850; 86900; 86901; 87040; 88305; 92610; 93005; 96361; 96365; 96366; 96368; 96375; 96376; 97110; 97116; 97162; 99285; C9113; G0378; G8987; G8988; G8996; G8997; G8998; J0744; J2370; J7030; Q9967